=== PATIENT | female | born 1950 | race African-American/Black ===

== ENCOUNTER 2018-01-06 06:34 | Inpatient (IN) ==
[2018-01-06] MEDS ORDERED: ONDANSETRON 4 MG/2 ML VIAL IV STA (06:51)
[2018-01-06] MEDS ORDERED: HYDROmorphone 2 MG/1 ML VIAL IV STA ×2 (06:51→08:00)
[2018-01-06 08:03] LABS: Basophils % 0.3 % (0.0-0.8); Eosinophils # 0.1 10*3/uL (0.0-0.87); Eosinophils % 0.4 % (0.00-10.9); Hematocrit 41.7 VOL% (35.7-47.0); Hemoglobin 12.9 GM/DL (12.0-16.0); Immature Granulocytes % 0.3 %; Immature Granulocytes Absolute 0.03 #; Lymphocytes # 1.5 10*3/uL (1.4-4.0); Lymphocytes % 13.5 % (21.3-54.2); Mean Corpuscular HGB Conc 30.9 GM/DL (32-36); Mean Corpuscular Hemoglobin 30 PG (27-34); Mean Corpuscular Volume 97.9 FL (87-102); Mean Platelet Volume 10.6 FL (9.6-12.0); Monocytes # 1.1 10*3/uL (0.11-0.8); Monocytes % 9.4 % (1.7-12.7); Neutrophils # 8.5 10*3/uL (1.4-7.4); Neutrophils % 76.1 % (38.7-73.9); Platelet Count 163 T/CUMM (130-400); Red Blood Count 4.26 MC/CUMM (3.8-5.5); Red Cell Distribution Width 13.8 % (9.3-17.3); White Blood Count 11.2 T/CUMM (4-12)
[2018-01-06 08:12] LABS: INR 1.6; PT Patient Result 17.6 SECS; Partial Thromboplastin Time 27.3 SECS (0-40)
[2018-01-06 08:27] LABS: Calcium 8.8 MG/DL (8.5-10.1); Osmolality,Calculated 292.7 MOS/KG (273-304); Potassium 4.7 MMOL/L (3.5-5.1)
[2018-01-06] MEDS ORDERED: ONDANSETRON 4 MG/2 ML VIAL IV PRN (09:13)
[2018-01-06] MEDS: SODIUM CHLORIDE 0.45% 1,000 ML IV SCH (11:50)
[2018-01-06] MEDS ORDERED: POTASSIUM CHLORIDE 20 MEQ TABLET PO PRN (16:49)
[2018-01-06] MEDS: HYDROmorphone 2 MG/1 ML VIAL IV PRN (18:11)
[2018-01-06] MEDS: methylPREDNISolone SOD SUC 40 MG/1 ML VIAL IV SCH (18:15)
[2018-01-06] MEDS ORDERED: POTASSIUM CHLORIDE 20 MEQ TABLET PO SCH (21:00)
[2018-01-06] MEDS: DOCUSATE SODIUM 100 MG CAPSULE PO SCH ×2 (21:51→21:55)
[2018-01-06] MEDS: TRAVOPROST 0.004% OPH SOLN 2.5 ML BOTTLE BOTH EYES SCH (21:52)
[2018-01-06] MEDS: TEMAZEPAM 15 MG CAPSULE PO SCH (21:52)
[2018-01-07] MEDS: traMADol 50 MG TABLET PO PRN ×2 (01:46→20:59)
[2018-01-07 05:25] LABS: Basophils % 0.2 % (0.0-0.8); Hematocrit 35.8 VOL% (35.7-47.0); Hemoglobin 11.1 GM/DL (12.0-16.0); Immature Granulocytes % 0.6 %; Immature Granulocytes Absolute 0.04 #; Lymphocytes % 14.9 % (21.3-54.2); Mean Corpuscular Hemoglobin 30 PG (27-34); Mean Platelet Volume 10.7 FL (9.6-12.0); Monocytes # 0.2 10*3/uL (0.11-0.8); Monocytes % 3.8 % (1.7-12.7); Neutrophils # 5.1 10*3/uL (1.4-7.4); Neutrophils % 80.5 % (38.7-73.9); Platelet Count 136 T/CUMM (130-400); Red Blood Count 3.69 MC/CUMM (3.8-5.5); Red Cell Distribution Width 13.6 % (9.3-17.3); White Blood Count 6.4 T/CUMM (4-12)
[2018-01-07 05:48] LABS: INR 1.8; PT Patient Result 19.3 SECS
[2018-01-07 05:57] LABS: Albumin 2.7 G/DL (3.4-5.0); Bilirubin,Total 0.5 MG/DL (0.2-1.0); Calcium 8.3 MG/DL (8.5-10.1); Osmolality,Calculated 285.1 MOS/KG (273-304); Potassium 4.5 MMOL/L (3.5-5.1); Total Protein 6.8 G/DL (6.4-8.3)
[2018-01-07] MEDS: methylPREDNISolone SOD SUC 40 MG/1 ML VIAL IV SCH ×2 (06:43→18:48)
[2018-01-07] MEDS: POTASSIUM CHLORIDE 20 MEQ TABLET PO SCH (08:55)
[2018-01-07] MEDS: FUROSEMIDE 20 MG TABLET PO SCH (08:55)
[2018-01-07] MEDS: amLODIPine 5 MG TABLET PO SCH (08:55)
[2018-01-07] MEDS: DOCUSATE SODIUM 100 MG CAPSULE PO SCH ×2 (08:56→20:59)
[2018-01-07] MEDS: PANTOPRAZOLE 40 MG TABLET PO SCH (08:56)
[2018-01-07] MEDS: HYDROXYCHLOROQUINE 200 MG TABLET PO SCH (08:56)
[2018-01-07] MEDS: CARBOXYMETHYLCELLULOSE 1% OPH SOLN BOTH EYES SCH (08:57)
[2018-01-07] MEDS ORDERED: PHYTONADIONE 5 MG/5 ML ORAL.SYR PO ONE (09:38)
[2018-01-07] MEDS ORDERED: SODIUM CHLORIDE 0.9% 1,000 ML IV PRN (10:05)
[2018-01-07] MEDS: SODIUM CHLORIDE 0.45% 1,000 ML IV SCH ×2 (20:58→23:47)
[2018-01-07] MEDS: TEMAZEPAM 15 MG CAPSULE PO SCH (20:59)
[2018-01-07 23:41] LABS: INR 1.1
[2018-01-08] MEDS: TRAVOPROST 0.004% OPH SOLN 2.5 ML BOTTLE BOTH EYES SCH ×2 (00:09→22:11)
[2018-01-08 05:25] LABS: INR 1.1; PT Patient Result 11.4 SECS
[2018-01-08] MEDS ORDERED: FAMOTIDINE 20 MG TABLET PO ONE (06:00)
[2018-01-08] MEDS: methylPREDNISolone SOD SUC 40 MG/1 ML VIAL IV SCH ×2 (06:08→17:22)
[2018-01-08] MEDS ORDERED: ALBUTEROL 2.5 MG/3 ML NEB RESP TX ONE (07:45)
[2018-01-08] MEDS: DOCUSATE SODIUM 100 MG CAPSULE PO SCH ×2 (08:17→22:10)
[2018-01-08] MEDS: HYDROXYCHLOROQUINE 200 MG TABLET PO SCH (08:17)
[2018-01-08] MEDS: PANTOPRAZOLE 40 MG TABLET PO SCH (08:18)
[2018-01-08] MEDS: CARBOXYMETHYLCELLULOSE 1% OPH SOLN BOTH EYES SCH (08:18)
[2018-01-08] MEDS: POTASSIUM CHLORIDE 20 MEQ TABLET PO SCH (08:18)
[2018-01-08] MEDS: FUROSEMIDE 20 MG TABLET PO SCH (08:18)
[2018-01-08] MEDS ORDERED: ceFAZolin 1,000 MG VIAL ONE (08:40)
[2018-01-08] MEDS ORDERED: PROPOFOL 200 MG/20 ML VIAL IV ONE (10:18)
[2018-01-08] MEDS ORDERED: fentaNYL 100 MCG/2 ML VIAL ONE (10:19)
[2018-01-08] MEDS ORDERED: PHENYLEPHRINE 1 MG/10 ML SYRINGE IV ONE (10:19)
[2018-01-08] MEDS ORDERED: ePHEDrine 50 MG/ML AMP ONE (10:19)
[2018-01-08] MEDS ORDERED: MIDAZOLAM 2 MG/2 ML VIAL ONE (10:19)
[2018-01-08] MEDS ORDERED: SEVOFLURANE 1 UNIT/15 MINUTE INH ONE (10:19)
[2018-01-08] MEDS ORDERED: ROCURONIUM 100 MG/10 ML VIAL IV ONE (10:19)
[2018-01-08] MEDS ORDERED: ROPIVACAINE 0.5% 30 ML VIAL ONE (10:20)
[2018-01-08] MEDS: amLODIPine 5 MG TABLET PO SCH (12:19)
[2018-01-08] MEDS: HYDROmorphone 2 MG/1 ML VIAL IV PRN (14:33)
[2018-01-08] MEDS: SODIUM CHLORIDE 0.45% 1,000 ML IV SCH (15:46)
[2018-01-08] MEDS ORDERED: ceFAZolin 1,000 MG VIAL IM SCH (16:00)
[2018-01-08] MEDS ORDERED: ceFAZolin 1,000 MG VIAL IV SCH (16:14)
[2018-01-08] MEDS: ceFAZolin 1,000 MG in SYRINGE 1 EACH IV SCH (16:51)
[2018-01-08] MEDS: TEMAZEPAM 15 MG CAPSULE PO SCH (22:10)
[2018-01-09] MEDS: HYDROmorphone 2 MG/1 ML VIAL IV PRN (01:32)
[2018-01-09] MEDS: ceFAZolin 1,000 MG in SYRINGE 1 EACH IV SCH ×3 (01:50→16:54)
[2018-01-09] MEDS: SODIUM CHLORIDE 0.45% 1,000 ML IV SCH ×2 (03:30→18:53)
[2018-01-09] MEDS: methylPREDNISolone SOD SUC 40 MG/1 ML VIAL IV SCH ×2 (06:10→18:14)
[2018-01-09] MEDS: amLODIPine 5 MG TABLET PO SCH (08:31)
[2018-01-09] MEDS: FUROSEMIDE 20 MG TABLET PO SCH (08:31)
[2018-01-09] MEDS: POTASSIUM CHLORIDE 20 MEQ TABLET PO SCH (08:31)
[2018-01-09] MEDS: HYDROXYCHLOROQUINE 200 MG TABLET PO SCH (08:31)
[2018-01-09] MEDS: DOCUSATE SODIUM 100 MG CAPSULE PO SCH ×2 (08:31→21:06)
[2018-01-09] MEDS: PANTOPRAZOLE 40 MG TABLET PO SCH (08:31)
[2018-01-09] MEDS: CARBOXYMETHYLCELLULOSE 1% OPH SOLN BOTH EYES SCH (08:32)
[2018-01-09] MEDS ORDERED: WARFARIN 4 MG TABLET PO SCH (18:00)
[2018-01-09] MEDS: TRAVOPROST 0.004% OPH SOLN 2.5 ML BOTTLE BOTH EYES SCH (21:06)
[2018-01-09] MEDS: TEMAZEPAM 15 MG CAPSULE PO SCH (21:06)
[2018-01-10] MEDS: SODIUM CHLORIDE 0.45% 1,000 ML IV SCH (01:19)
[2018-01-10] MEDS: ceFAZolin 1,000 MG in SYRINGE 1 EACH IV SCH ×2 (01:35→08:48)
[2018-01-10] MEDS: methylPREDNISolone SOD SUC 40 MG/1 ML VIAL IV SCH (05:18)
[2018-01-10] MEDS: amLODIPine 5 MG TABLET PO SCH (08:37)
[2018-01-10] MEDS: DOCUSATE SODIUM 100 MG CAPSULE PO SCH (08:37)
[2018-01-10] MEDS: POTASSIUM CHLORIDE 20 MEQ TABLET PO SCH (08:37)
[2018-01-10] MEDS: HYDROXYCHLOROQUINE 200 MG TABLET PO SCH (08:37)
[2018-01-10] MEDS: FUROSEMIDE 20 MG TABLET PO SCH (08:38)
[2018-01-10] MEDS: PANTOPRAZOLE 40 MG TABLET PO SCH (10:14)
[2018-01-10] MEDS: CARBOXYMETHYLCELLULOSE 1% OPH SOLN BOTH EYES SCH (10:14)
[2018-01-10 12:01] VITALS: BP 135/85
[2018-01-13] MEDS ORDERED: WARFARIN 5 MG TABLET PO SCH (18:00)
== END 2018-01-10 16:40 | DRG 493 ==
LOC: EDBD → EDUNIT# → N.ED 06:34 → N.EDINP 09:13 → N.3E 09:57
PROVIDERS: ADMIT Family Medicine; ATTEND Family Medicine

== ENCOUNTER 2019-12-09 12:11 | Inpatient (IN) ==
[2019-12-09] MEDS ORDERED: ONDANSETRON 4 MG/2 ML VIAL IV STA (12:47)
[2019-12-09 12:57] LABS: Basophils # 0.1 10*3/uL (0.0-0.2); Basophils % 0.6 % (0.0-0.8); Eosinophils # 0.1 10*3/uL (0.0-0.87); Eosinophils % 1.3 % (0.00-10.9); Hematocrit 41.2 VOL% (35.7-47.0); Hemoglobin 13.3 GM/DL (12.0-16.0); Immature Granulocytes % 0.5 %; Immature Granulocytes Absolute 0.05 #; Lymphocytes # 1.6 10*3/uL (1.4-4.0); Lymphocytes % 15.1 % (21.3-54.2); Mean Corpuscular HGB Conc 32.3 GM/DL (32-36); Mean Corpuscular Volume 91.4 FL (87-102); Mean Platelet Volume 10.4 FL (9.6-12.0); Monocytes % 8.1 % (1.7-12.7); Neutrophils % 74.4 % (38.7-73.9); Platelet Count 213 T/CUMM (130-400); Red Blood Count 4.51 MC/CUMM (3.8-5.5); Red Cell Distribution Width 13.4 % (9.3-17.3); White Blood Count 10.3 T/CUMM (4-12)
[2019-12-09 13:19] LABS: Alanine Aminotransferase 19 U/L (13-56); Albumin 2.6 G/DL (3.4-5.0); Alkaline Phosphatase 81 U/L (45-117); Aspartate Amino Transferase 35 U/L (0-37); Bilirubin,Total < 0.39 MG/DL (0.2-1.0); Blood Urea Nitrogen 11 MG/DL (7-18); Calcium 9.2 MG/DL (8.5-10.1); Estimated Glom Filtration Rate 61 ML/MIN; Glucose 94 MG/DL (74-106); Osmolality,Calculated 277.4 MOS/KG (273-304); Total Protein 8.2 G/DL (6.4-8.3)
[2019-12-09 14:12] LABS: PT Patient Result 56.5 SECS (9.8-11.9)
[2019-12-09 14:16] LABS: INR 5.8
[2019-12-09 14:57] LABS: Bilirubin,Urine Negative (Negative); Blood, Urine Negative (Negative); Glucose,Urine (UA) Negative (Negative); Ketones,Urine 5 mg/dL (Negative); Mucus,Urine Occasional /LPF (Occasional); Nitrite,Urine Negative (Negative); Protein,Urine Negative; Squamous Epithelial Cell,Urine Occasional /HPF (0-10); Urine Appearance CLEAR (Clear); Urine Color Yellow (Yellow); Urine Specific Gravity 1.036 (1.001-1.035); Urine Urobilinogen < 2.0 EU/DL (0.2-1.0); WBC,Urine 2 /HPF (0-6)
[2019-12-09] MEDS ORDERED: LEVOFLOXACIN INJ 750 MG in PREMIX 1 EACH IV STA (15:30)
[2019-12-09] MEDS ORDERED: metroNIDAZOLE INJ 500 MG in PREMIX 1 EACH IV STA (15:31)
[2019-12-09] MEDS ORDERED: HYDROmorphone 2 MG/1 ML VIAL IV PRN ×2 (16:16→16:26)
[2019-12-09] MEDS ORDERED: PHYTONADIONE 10 MG/1 ML AMP SUBCUT STA (16:24)
[2019-12-09] MEDS: LACTATED RINGERS 1,000 ML IV SCH (17:25)
[2019-12-09] MEDS ORDERED: metroNIDAZOLE INJ 500 MG in PREMIX 1 EACH IV SCH (17:47)
[2019-12-09] MEDS ORDERED: LEVOFLOXACIN INJ 750 MG in PREMIX 1 EACH IV SCH (17:47)
[2019-12-09] MEDS: CIPROFLOXACIN INJ 400 MG in PREMIX 1 EACH IV SCH (18:00)
[2019-12-09] MEDS: metroNIDAZOLE INJ 500 MG in PREMIX 1 EACH IV SCH (20:18)
[2019-12-09] MEDS ORDERED: traZODone 50 MG TABLET PO ONE (23:16)
[2019-12-10] MEDS: metroNIDAZOLE INJ 500 MG in PREMIX 1 EACH IV SCH ×3 (03:21→20:27)
[2019-12-10] MEDS: LACTATED RINGERS 1,000 ML IV SCH ×2 (03:22→08:15)
[2019-12-10] MEDS: CIPROFLOXACIN INJ 400 MG in PREMIX 1 EACH IV SCH ×2 (05:12→17:54)
[2019-12-10 08:11] LABS: Basophils # 0.1 10*3/uL (0.0-0.2); Basophils % 0.8 % (0.0-0.8); Eosinophils # 0.4 10*3/uL (0.0-0.87); Eosinophils % 5.8 % (0.00-10.9); Hematocrit 36.9 VOL% (35.7-47.0); Hemoglobin 11.6 GM/DL (12.0-16.0); Immature Granulocytes % 0.4 %; Immature Granulocytes Absolute 0.03 #; Lymphocytes # 1.6 10*3/uL (1.4-4.0); Lymphocytes % 22.2 % (21.3-54.2); Mean Corpuscular HGB Conc 31.4 GM/DL (32-36); Mean Corpuscular Volume 93.7 FL (87-102); Mean Platelet Volume 10.8 FL (9.6-12.0); Neutrophils % 59.8 % (38.7-73.9); Platelet Count 201 T/CUMM (130-400); Red Blood Count 3.94 MC/CUMM (3.8-5.5); Red Cell Distribution Width 13.6 % (9.3-17.3); White Blood Count 7.4 T/CUMM (4-12)
[2019-12-10] MEDS: PANTOPRAZOLE 40 MG VIAL IV SCH (08:14)
[2019-12-10 08:27] LABS: Calcium 8.3 MG/DL (8.5-10.1); Osmolality,Calculated 279.1 MOS/KG (273-304)
[2019-12-10 08:30] LABS: INR 4.3; PT Patient Result 42.4 SECS (9.8-11.9)
[2019-12-10] MEDS ORDERED: PHYTONADIONE 5 MG/5 ML ORAL.SYR PO STA (08:55)
[2019-12-10 15:09] LABS: INR 2.9; PT Patient Result 29.9 SECS (9.8-11.9)
[2019-12-10] MEDS ORDERED: traMADol 50 MG TABLET PO PRN (15:26)
[2019-12-10] MEDS ORDERED: CARBOXYMETHYLCELLULOSE 1% OPH SOLN BOTH EYES PRN (15:26)
[2019-12-10] MEDS ORDERED: PHYTONADIONE 10 MG/1 ML AMP SUBCUT ONE (17:43)
[2019-12-10] MEDS: LATANOPROST 0.005% OPH SOLN 2.5 ML BOTTLE BOTH EYES SCH (20:27)
[2019-12-10] MEDS: SIMVASTATIN 20 MG TABLET PO SCH (20:27)
[2019-12-10] MEDS: TRAVOPROST 0.004% OPH SOLN 2.5 ML BOTTLE BOTH EYES SCH (20:29)
[2019-12-11] MEDS: ONDANSETRON 4 MG/2 ML VIAL IV PRN (01:54)
[2019-12-11] MEDS: metroNIDAZOLE INJ 500 MG in PREMIX 1 EACH IV SCH ×3 (03:34→20:42)
[2019-12-11 05:18] LABS: Basophils # 0.1 10*3/uL (0.0-0.2); Basophils % 0.8 % (0.0-0.8); Eosinophils # 0.4 10*3/uL (0.0-0.87); Eosinophils % 7.1 % (0.00-10.9); Immature Granulocytes % 0.8 %; Immature Granulocytes Absolute 0.05 #; Lymphocytes # 1.6 10*3/uL (1.4-4.0); Lymphocytes % 25.7 % (21.3-54.2); Mean Corpuscular HGB Conc 31.6 GM/DL (32-36); Mean Corpuscular Volume 92.9 FL (87-102); Mean Platelet Volume 10.6 FL (9.6-12.0); Neutrophils % 52.6 % (38.7-73.9); Platelet Count 210 T/CUMM (130-400); Red Blood Count 4.09 MC/CUMM (3.8-5.5); Red Cell Distribution Width 13.4 % (9.3-17.3); White Blood Count 6.1 T/CUMM (4-12)
[2019-12-11 05:28] LABS: INR 1.6; PT Patient Result 16.4 SECS (9.8-11.9)
[2019-12-11] MEDS: CIPROFLOXACIN INJ 400 MG in PREMIX 1 EACH IV SCH ×2 (05:34→17:15)
[2019-12-11 05:42] LABS: Calcium 8.4 MG/DL (8.5-10.1); Osmolality,Calculated 271.7 MOS/KG (273-304)
[2019-12-11] MEDS ORDERED: PHYTONADIONE 5 MG/5 ML ORAL.SYR PO STA (06:49)
[2019-12-11] MEDS: PANTOPRAZOLE 40 MG VIAL IV SCH (08:20)
[2019-12-11] MEDS: LACTATED RINGERS 1,000 ML IV SCH ×4 (09:04→17:15)
[2019-12-11 11:24] LABS: INR 1.4; PT Patient Result 15.1 SECS (9.8-11.9)
[2019-12-11] MEDS ORDERED: ACETAMINOPHEN 325 MG TABLET PO PRN (12:47)
[2019-12-11] MEDS: SIMVASTATIN 20 MG TABLET PO SCH (20:41)
[2019-12-11] MEDS: TRAVOPROST 0.004% OPH SOLN 2.5 ML BOTTLE BOTH EYES SCH (20:42)
[2019-12-11] MEDS: LATANOPROST 0.005% OPH SOLN 2.5 ML BOTTLE BOTH EYES SCH (20:42)
[2019-12-12] MEDS: metroNIDAZOLE INJ 500 MG in PREMIX 1 EACH IV SCH ×3 (03:17→21:30)
[2019-12-12] MEDS: CIPROFLOXACIN INJ 400 MG in PREMIX 1 EACH IV SCH ×2 (05:22→18:04)
[2019-12-12 06:01] LABS: Basophils # 0.1 10*3/uL (0.0-0.2); Basophils % 0.9 % (0.0-0.8); Eosinophils # 0.3 10*3/uL (0.0-0.87); Eosinophils % 6.4 % (0.00-10.9); Hematocrit 37.9 VOL% (35.7-47.0); Hemoglobin 12.2 GM/DL (12.0-16.0); Immature Granulocytes % 0.9 %; Immature Granulocytes Absolute 0.05 #; Lymphocytes # 1.7 10*3/uL (1.4-4.0); Lymphocytes % 32.1 % (21.3-54.2); Mean Corpuscular HGB Conc 32.2 GM/DL (32-36); Mean Corpuscular Volume 91.5 FL (87-102); Mean Platelet Volume 9.9 FL (9.6-12.0); Monocytes % 12.5 % (1.7-12.7); Neutrophils % 47.2 % (38.7-73.9); Platelet Count 210 T/CUMM (130-400); Red Blood Count 4.14 MC/CUMM (3.8-5.5); Red Cell Distribution Width 13.3 % (9.3-17.3); White Blood Count 5.3 T/CUMM (4-12)
[2019-12-12 06:20] LABS: Calcium 8.4 MG/DL (8.5-10.1); Osmolality,Calculated 277.3 MOS/KG (273-304)
[2019-12-12] MEDS: LACTATED RINGERS 1,000 ML IV SCH ×2 (08:20→15:04)
[2019-12-12] MEDS: PANTOPRAZOLE 40 MG VIAL IV SCH (09:11)
[2019-12-12] MEDS: ONDANSETRON 4 MG/2 ML VIAL IV PRN (18:04)
[2019-12-12] MEDS: SIMVASTATIN 20 MG TABLET PO SCH (21:30)
[2019-12-12] MEDS: LATANOPROST 0.005% OPH SOLN 2.5 ML BOTTLE BOTH EYES SCH (21:30)
[2019-12-12] MEDS: TRAVOPROST 0.004% OPH SOLN 2.5 ML BOTTLE BOTH EYES SCH (21:30)
[2019-12-13] MEDS: metroNIDAZOLE INJ 500 MG in PREMIX 1 EACH IV SCH ×3 (05:38→20:55)
[2019-12-13] MEDS: LACTATED RINGERS 1,000 ML IV SCH ×4 (05:40→23:46)
[2019-12-13 05:45] LABS: Basophils # 0.1 10*3/uL (0.0-0.2); Eosinophils # 0.4 10*3/uL (0.0-0.87); Eosinophils % 6.8 % (0.00-10.9); Hematocrit 41.4 VOL% (35.7-47.0); Hemoglobin 13.2 GM/DL (12.0-16.0); Immature Granulocytes % 0.7 %; Immature Granulocytes Absolute 0.04 #; Lymphocytes # 1.6 10*3/uL (1.4-4.0); Lymphocytes % 27.4 % (21.3-54.2); Mean Corpuscular HGB Conc 31.9 GM/DL (32-36); Mean Platelet Volume 10.5 FL (9.6-12.0); Monocytes % 10.8 % (1.7-12.7); Neutrophils % 53.3 % (38.7-73.9); Platelet Count 221 T/CUMM (130-400); Red Blood Count 4.55 MC/CUMM (3.8-5.5); Red Cell Distribution Width 13.3 % (9.3-17.3); White Blood Count 5.7 T/CUMM (4-12)
[2019-12-13 06:05] LABS: Albumin 2.3 G/DL (3.4-5.0); Bilirubin,Total 0.6 MG/DL (0.2-1.0); Calcium 8.6 MG/DL (8.5-10.1); Osmolality,Calculated 273.4 MOS/KG (273-304); Total Protein 7.3 G/DL (6.4-8.3)
[2019-12-13] MEDS: CIPROFLOXACIN INJ 400 MG in PREMIX 1 EACH IV SCH ×2 (07:44→18:10)
[2019-12-13] MEDS: CHOLECALCIFEROL 1,000 UNIT TABLET PO SCH (09:35)
[2019-12-13] MEDS: PANTOPRAZOLE 40 MG VIAL IV SCH (09:39)
[2019-12-13] MEDS ORDERED: POTASSIUM CHLORIDE 20 MEQ TABLET PO ONE (14:00)
[2019-12-13] MEDS ORDERED: MAGNESIUM SULF RIDER 2 GM in PREMIX 1 EACH IV ONE ×2 (14:00→22:52)
[2019-12-13] MEDS: SIMVASTATIN 20 MG TABLET PO SCH (20:55)
[2019-12-13] MEDS: LATANOPROST 0.005% OPH SOLN 2.5 ML BOTTLE BOTH EYES SCH (20:58)
[2019-12-13] MEDS: TRAVOPROST 0.004% OPH SOLN 2.5 ML BOTTLE BOTH EYES SCH (20:58)
[2019-12-14] MEDS: metroNIDAZOLE INJ 500 MG in PREMIX 1 EACH IV SCH (03:41)
[2019-12-14] MEDS: CIPROFLOXACIN INJ 400 MG in PREMIX 1 EACH IV SCH (05:40)
[2019-12-14 05:47] LABS: Eosinophils # 0.3 10*3/uL (0.0-0.87); Eosinophils % 7.6 % (0.00-10.9); Hematocrit 36.2 VOL% (35.7-47.0); Hemoglobin 11.5 GM/DL (12.0-16.0); Immature Granulocytes % 0.2 %; Immature Granulocytes Absolute 0.01 #; Lymphocytes # 1.3 10*3/uL (1.4-4.0); Lymphocytes % 31.3 % (21.3-54.2); Mean Corpuscular HGB Conc 31.8 GM/DL (32-36); Mean Corpuscular Volume 90.5 FL (87-102); Mean Platelet Volume 10.6 FL (9.6-12.0); Monocytes % 18.5 % (1.7-12.7); Neutrophils % 41.4 % (38.7-73.9); Platelet Count 193 T/CUMM (130-400); Red Cell Distribution Width 13.7 % (9.3-17.3); White Blood Count 4.1 T/CUMM (4-12)
[2019-12-14 06:10] LABS: Bilirubin,Total 0.4 MG/DL (0.2-1.0); Calcium 8.3 MG/DL (8.5-10.1); Osmolality,Calculated 276.3 MOS/KG (273-304); Total Protein 6.3 G/DL (6.4-8.3)
[2019-12-14 06:15] LABS: Eosinophils 6 % (0-10); Hypochromasia 1+; Lymphocytes 23 % (20-55); Microcytosis 1+; Platelet Estimate Adequate; Segmented Neutrophils 52 % (50-85); Total Cells Counted 100
[2019-12-14] MEDS: CHOLECALCIFEROL 1,000 UNIT TABLET PO SCH (08:29)
[2019-12-14] MEDS: PANTOPRAZOLE 40 MG VIAL IV SCH (08:30)
[2019-12-14] MEDS ORDERED: POTASSIUM CHLORIDE 20 MEQ TABLET PO SCH (09:00)
[2019-12-14] MEDS: LACTATED RINGERS 1,000 ML IV SCH (09:54)
[2019-12-14] MEDS ORDERED: ERTAPENEM 1,000 MG in SODIUM CHLORIDE 0.9% 100 ML IV SCH (10:00)
[2019-12-14] MEDS: ONDANSETRON 4 MG/2 ML VIAL IV PRN (11:24)
[2019-12-14] MEDS ORDERED: NYSTATIN CREAM 15 GM TUBE TOP SCH (14:00)
[2019-12-14] MEDS ORDERED: WARFARIN 5 MG TABLET PO SCH (15:00)
[2019-12-14 15:47] VITALS: BP 123/93
== END 2019-12-14 18:19 | DRG 392 ==
LOC: N.ED 12:11 → N.EDINP 16:16 → N.3E 17:00
PROVIDERS: ADMIT Internal Medicine; ATTEND Internal Medicine

== ENCOUNTER 2020-01-07 12:20 | Inpatient (IN) ==
[2020-01-07] MEDS ORDERED: ONDANSETRON 4 MG/2 ML VIAL IV STA (12:46)
[2020-01-07] MEDS ORDERED: SODIUM CHLORIDE 0.9% 1,000 ML IV STA (12:46)
[2020-01-07 13:03] LABS: Bilirubin,Urine Negative (Negative); Blood, Urine Negative (Negative); Glucose,Urine (UA) Negative (Negative); Hyaline Casts,Urine 1 /LPF (0-3); Ketones,Urine 20 mg/dL (Negative); Mucus,Urine Occasional /LPF (Occasional); Nitrite,Urine Negative (Negative); Protein,Urine Negative; RBC,Urine <1 /HPF (0-4); Urine Appearance CLEAR (Clear); Urine Color Yellow (Yellow); Urine Specific Gravity 1.017 (1.001-1.035); WBC,Urine 2 /HPF (0-6)
[2020-01-07 13:08] LABS: Basophils # 0.1 10*3/uL (0.0-0.2); Basophils % 0.7 % (0.0-0.8); Eosinophils # 0.2 10*3/uL (0.0-0.87); Eosinophils % 2.8 % (0.00-10.9); Hematocrit 42.4 VOL% (35.7-47.0); Hemoglobin 13.4 GM/DL (12.0-16.0); Immature Granulocytes % 0.5 %; Immature Granulocytes Absolute 0.04 #; Lymphocytes # 1.8 10*3/uL (1.4-4.0); Mean Corpuscular HGB Conc 31.6 GM/DL (32-36); Mean Corpuscular Volume 93.6 FL (87-102); Monocytes % 9.2 % (1.7-12.7); Neutrophils % 63.8 % (38.7-73.9); Platelet Count 209 T/CUMM (130-400); Red Blood Count 4.53 MC/CUMM (3.8-5.5); Red Cell Distribution Width 14.5 % (9.3-17.3); White Blood Count 7.6 T/CUMM (4-12)
[2020-01-07 13:28] LABS: Albumin 2.7 G/DL (3.4-5.0); Bilirubin,Total 0.8 MG/DL (0.2-1.0); Osmolality,Calculated 278.3 MOS/KG (273-304)
[2020-01-07] MEDS ORDERED: ALBUTEROL/IPRATROPIUM 3 ML NEB RESP TX PRN (15:29)
[2020-01-07] MEDS ORDERED: CARBOXYMETHYLCELLULOSE 1% OPH SOLN BOTH EYES PRN (15:34)
[2020-01-07] MEDS ORDERED: traMADol 50 MG TABLET PO PRN (15:34)
[2020-01-07] MEDS ORDERED: POTASSIUM CHLORIDE 20 MEQ TABLET PO STA (15:36)
[2020-01-07] MEDS: metroNIDAZOLE INJ 500 MG in PREMIX 1 EACH IV SCH (16:28)
[2020-01-07] MEDS: LACTATED RINGERS 1,000 ML IV SCH (16:28)
[2020-01-07] MEDS ORDERED: CIPROFLOXACIN INJ 400 MG in PREMIX 1 EACH IV SCH (17:00)
[2020-01-07] MEDS: KETOROLAC 15 MG/1 ML VIAL IV PRN (18:29)
[2020-01-07] MEDS: TEMAZEPAM 15 MG CAPSULE PO SCH (20:49)
[2020-01-07] MEDS: SIMVASTATIN 20 MG TABLET PO SCH (20:50)
[2020-01-07] MEDS: CIPROFLOXACIN INJ 400 MG in PREMIX 1 EACH IV SCH (20:50)
[2020-01-08] MEDS: metroNIDAZOLE INJ 500 MG in PREMIX 1 EACH IV SCH ×3 (00:53→15:11)
[2020-01-08] MEDS: LACTATED RINGERS 1,000 ML IV SCH ×3 (05:27→16:10)
[2020-01-08 06:15] LABS: Eosinophils # 0.4 10*3/uL (0.0-0.87); Eosinophils % 8.6 % (0.00-10.9); Hematocrit 38.3 VOL% (35.7-47.0); Hemoglobin 11.8 GM/DL (12.0-16.0); Immature Granulocytes % 0.7 %; Immature Granulocytes Absolute 0.03 #; Lymphocytes # 1.2 10*3/uL (1.4-4.0); Lymphocytes % 29.4 % (21.3-54.2); Mean Corpuscular HGB Conc 30.8 GM/DL (32-36); Mean Platelet Volume 10.9 FL (9.6-12.0); Monocytes % 14.5 % (1.7-12.7); Neutrophils % 45.8 % (38.7-73.9); Platelet Count 170 T/CUMM (130-400); Red Blood Count 4.03 MC/CUMM (3.8-5.5); Red Cell Distribution Width 14.3 % (9.3-17.3); White Blood Count 4.1 T/CUMM (4-12)
[2020-01-08 06:20] LABS: INR 2.5; PT Patient Result 25.9 SECS (9.8-11.9)
[2020-01-08 06:29] LABS: Calcium 8.6 MG/DL (8.5-10.1); Osmolality,Calculated 279.1 MOS/KG (273-304)
[2020-01-08] MEDS: LATANOPROST 0.005% OPH SOLN 2.5 ML BOTTLE BOTH EYES SCH (10:20)
[2020-01-08] MEDS: KETOROLAC 15 MG/1 ML VIAL IV PRN ×2 (10:48→21:03)
[2020-01-08] MEDS: PANTOPRAZOLE 40 MG VIAL IV SCH (11:34)
[2020-01-08] MEDS: amLODIPine 5 MG TABLET PO SCH (11:34)
[2020-01-08] MEDS: CIPROFLOXACIN INJ 400 MG in PREMIX 1 EACH IV SCH ×2 (11:44→21:06)
[2020-01-08] MEDS ORDERED: PHYTONADIONE INJ 10 MG in SODIUM CHLORIDE 0.9% 50 ML IV ONE (14:00)
[2020-01-08] MEDS: TEMAZEPAM 15 MG CAPSULE PO SCH ×2 (21:04→21:22)
[2020-01-08] MEDS: CARBOXYMETHYLCELLULOSE 1% OPH SOLN BOTH EYES SCH (21:04)
[2020-01-08] MEDS: SIMVASTATIN 20 MG TABLET PO SCH (21:21)
[2020-01-09] MEDS: metroNIDAZOLE INJ 500 MG in PREMIX 1 EACH IV SCH ×4 (00:04→23:42)
[2020-01-09] MEDS: LACTATED RINGERS 1,000 ML IV SCH ×2 (00:10→14:09)
[2020-01-09 05:00] LABS: INR 1.4; PT Patient Result 15.2 SECS (9.8-11.9)
[2020-01-09] MEDS ORDERED: CLINDAMYCIN INJ 900 MG in PREMIX 1 EACH IV ONE (06:00)
[2020-01-09] MEDS ORDERED: MIDAZOLAM 2 MG/2 ML VIAL ONE (07:01)
[2020-01-09] MEDS ORDERED: ROCURONIUM 50 MG/5 ML VIAL IV ONE (07:01)
[2020-01-09] MEDS ORDERED: fentaNYL 100 MCG/2 ML VIAL ONE ×2 (07:01→11:18)
[2020-01-09] MEDS ORDERED: LIDOCAINE 2% 5 ML VIAL ONE (07:01)
[2020-01-09] MEDS ORDERED: propofoL 200 MG/20 ML VIAL IV ONE (07:01)
[2020-01-09] MEDS ORDERED: ePHEDrine 50 MG/ML VIAL ONE (07:29)
[2020-01-09] MEDS ORDERED: methylPREDNISolone SOD SUC 125 MG/2 ML VIAL ONE (07:36)
[2020-01-09] MEDS ORDERED: PHENYLEPHRINE 1 MG/10 ML SYRINGE IV ONE ×3 (07:46→10:49)
[2020-01-09] MEDS ORDERED: ONDANSETRON 4 MG/2 ML VIAL ONE (08:01)
[2020-01-09] MEDS ORDERED: GLYCOPYRROLATE 0.4 MG/2 ML VIAL ONE (10:49)
[2020-01-09] MEDS ORDERED: NEOSTIGMINE 10 MG/10 ML VIAL ONE (10:49)
[2020-01-09] MEDS ORDERED: NALOXONE 0.4 MG/ML VIAL IV PRN (11:35)
[2020-01-09] MEDS ORDERED: SEVOFLURANE 1 UNIT/15 MINUTE INH ONE (12:26)
[2020-01-09] MEDS ORDERED: ONDANSETRON 4 MG/2 ML VIAL IV PRN (12:35)
[2020-01-09] MEDS ORDERED: HYDROmorphone 2 MG/1 ML VIAL IV PRN (12:35)
[2020-01-09] MEDS: CIPROFLOXACIN INJ 400 MG in PREMIX 1 EACH IV SCH ×2 (14:18→20:43)
[2020-01-09] MEDS: CARBOXYMETHYLCELLULOSE 1% OPH SOLN BOTH EYES SCH ×2 (14:23→20:44)
[2020-01-09] MEDS: amLODIPine 5 MG TABLET PO SCH (14:23)
[2020-01-09] MEDS: PANTOPRAZOLE 40 MG VIAL IV SCH (14:24)
[2020-01-09] MEDS: HYDROmorphone PCA 30 MG/30 ML SYRINGE IV SCH (14:33)
[2020-01-09] MEDS: LATANOPROST 0.005% OPH SOLN 2.5 ML BOTTLE BOTH EYES SCH (14:36)
[2020-01-09 15:02] LABS: Basophils % 0.1 % (0.0-0.8); Immature Granulocytes % 0.6 %; Immature Granulocytes Absolute 0.07 #; Lymphocytes # 0.3 10*3/uL (1.4-4.0); Lymphocytes % 2.7 % (21.3-54.2); Mean Corpuscular HGB Conc 31.6 GM/DL (32-36); Mean Corpuscular Volume 93.1 FL (87-102); Mean Platelet Volume 9.8 FL (9.6-12.0); Monocytes % 5.1 % (1.7-12.7); Neutrophils % 91.5 % (38.7-73.9); Platelet Count 183 T/CUMM (130-400); Red Blood Count 4.08 MC/CUMM (3.8-5.5); Red Cell Distribution Width 13.8 % (9.3-17.3); White Blood Count 11.7 T/CUMM (4-12)
[2020-01-09 15:58] LABS: Eosinophils 1 % (0-10); Segmented Neutrophils 94 % (50-85); Total Cells Counted 100
[2020-01-09 15:59] LABS: Platelet Estimate Adequate
[2020-01-09] MEDS: TEMAZEPAM 15 MG CAPSULE PO SCH (21:57)
[2020-01-09] MEDS: SIMVASTATIN 20 MG TABLET PO SCH (21:57)
[2020-01-10 05:17] LABS: Basophils % 0.1 % (0.0-0.8); Hematocrit 34.2 VOL% (35.7-47.0); Hemoglobin 10.5 GM/DL (12.0-16.0); Immature Granulocytes % 0.7 %; Lymphocytes % 6.8 % (21.3-54.2); Mean Corpuscular HGB Conc 30.7 GM/DL (32-36); Mean Corpuscular Volume 95.5 FL (87-102); Mean Platelet Volume 11.1 FL (9.6-12.0); Monocytes % 10.8 % (1.7-12.7); Neutrophils % 81.6 % (38.7-73.9); Platelet Count 199 T/CUMM (130-400); Red Blood Count 3.58 MC/CUMM (3.8-5.5); Red Cell Distribution Width 14.1 % (9.3-17.3); White Blood Count 14.4 T/CUMM (4-12)
[2020-01-10 05:26] LABS: INR 1.3; PT Patient Result 13.4 SECS (9.8-11.9)
[2020-01-10 05:38] LABS: Albumin 2.1 G/DL (3.4-5.0); Bilirubin,Total 0.6 MG/DL (0.2-1.0); Calcium 7.9 MG/DL (8.5-10.1); Osmolality,Calculated 273.7 MOS/KG (273-304); Total Protein 6.2 G/DL (6.4-8.3)
[2020-01-10] MEDS: LACTATED RINGERS 1,000 ML IV SCH ×3 (07:37→20:38)
[2020-01-10] MEDS: amLODIPine 5 MG TABLET PO SCH (08:37)
[2020-01-10] MEDS: metroNIDAZOLE INJ 500 MG in PREMIX 1 EACH IV SCH ×2 (09:23→15:46)
[2020-01-10] MEDS: PANTOPRAZOLE 40 MG VIAL IV SCH (09:25)
[2020-01-10] MEDS: LATANOPROST 0.005% OPH SOLN 2.5 ML BOTTLE BOTH EYES SCH (09:25)
[2020-01-10] MEDS: CARBOXYMETHYLCELLULOSE 1% OPH SOLN BOTH EYES SCH ×2 (09:25→20:45)
[2020-01-10] MEDS: CIPROFLOXACIN INJ 400 MG in PREMIX 1 EACH IV SCH ×2 (11:41→20:39)
[2020-01-10] MEDS ORDERED: ENOXAPARIN 40 MG/0.4 ML SYRINGE SUBCUT SCH (14:00)
[2020-01-10] MEDS: SIMVASTATIN 20 MG TABLET PO SCH (20:39)
[2020-01-10] MEDS: TEMAZEPAM 15 MG CAPSULE PO SCH (20:39)
[2020-01-11] MEDS: metroNIDAZOLE INJ 500 MG in PREMIX 1 EACH IV SCH ×4 (00:52→23:48)
[2020-01-11 06:24] LABS: Basophils # 0.1 10*3/uL (0.0-0.2); Basophils % 0.4 % (0.0-0.8); Eosinophils # 0.3 10*3/uL (0.0-0.87); Eosinophils % 2.9 % (0.00-10.9); Hematocrit 31.8 VOL% (35.7-47.0); Hemoglobin 9.7 GM/DL (12.0-16.0); Immature Granulocytes % 0.4 %; Immature Granulocytes Absolute 0.05 #; Lymphocytes # 1.4 10*3/uL (1.4-4.0); Lymphocytes % 12.7 % (21.3-54.2); Mean Corpuscular HGB Conc 30.5 GM/DL (32-36); Mean Corpuscular Volume 96.7 FL (87-102); Mean Platelet Volume 10.9 FL (9.6-12.0); Monocytes % 15.7 % (1.7-12.7); Neutrophils % 67.9 % (38.7-73.9); Platelet Count 189 T/CUMM (130-400); Red Blood Count 3.29 MC/CUMM (3.8-5.5); Red Cell Distribution Width 14.3 % (9.3-17.3); White Blood Count 11.2 T/CUMM (4-12)
[2020-01-11 06:32] LABS: INR 1.2; PT Patient Result 12.7 SECS (9.8-11.9)
[2020-01-11 06:42] LABS: Alanine Aminotransferase 15 U/L (13-56); Albumin 2.1 G/DL (3.4-5.0); Alkaline Phosphatase 52 U/L (45-117); Aspartate Amino Transferase 35 U/L (0-37); Bilirubin,Indirect 0.3 MG/DL (0.0-1.0); Bilirubin,Total < 0.39 MG/DL (0.2-1.0); Total Protein 6.1 G/DL (6.4-8.3)
[2020-01-11 06:46] LABS: Calcium 7.9 MG/DL (8.5-10.1); Osmolality,Calculated 275.7 MOS/KG (273-304)
[2020-01-11 07:12] LABS: Band Neutrophils 5 % (0-10); Eosinophils 3 % (0-10); Lymphocytes 12 % (20-55); Nucleated Red Blood Cells 1 (0-5); Platelet Estimate Normal; Segmented Neutrophils 60 % (50-85); Total Cells Counted 100
[2020-01-11 07:13] LABS: Anisocytosis 1+; Atypical Lymphocytes Few; Macrocytosis Slight
[2020-01-11] MEDS: amLODIPine 5 MG TABLET PO SCH (08:13)
[2020-01-11] MEDS: PANTOPRAZOLE 40 MG VIAL IV SCH (08:32)
[2020-01-11] MEDS: LACTATED RINGERS 1,000 ML IV SCH ×2 (08:33→08:49)
[2020-01-11] MEDS: HYDROmorphone PCA 30 MG/30 ML SYRINGE IV SCH ×2 (08:49→11:58)
[2020-01-11] MEDS ORDERED: SODIUM CHLORIDE 0.9% 500 ML IV ONE (09:00)
[2020-01-11] MEDS: LATANOPROST 0.005% OPH SOLN 2.5 ML BOTTLE BOTH EYES SCH (09:59)
[2020-01-11] MEDS: CARBOXYMETHYLCELLULOSE 1% OPH SOLN BOTH EYES SCH ×2 (09:59→20:41)
[2020-01-11] MEDS: CIPROFLOXACIN INJ 400 MG in PREMIX 1 EACH IV SCH (10:23)
[2020-01-11] MEDS ORDERED: ALBUMIN 25% 50 GM in PREMIX 1 EACH IV ONE (11:00)
[2020-01-11] MEDS ORDERED: LACTATED RINGERS 500 ML IV ONE (12:16)
[2020-01-11 12:51] LABS: Basophils # 0.1 10*3/uL (0.0-0.2); Basophils % 0.4 % (0.0-0.8); Eosinophils # 0.3 10*3/uL (0.0-0.87); Eosinophils % 2.8 % (0.00-10.9); Hematocrit 30.3 VOL% (35.7-47.0); Hemoglobin 9.1 GM/DL (12.0-16.0); Immature Granulocytes % 0.5 %; Immature Granulocytes Absolute 0.06 #; Lymphocytes # 1.2 10*3/uL (1.4-4.0); Lymphocytes % 10.4 % (21.3-54.2); Mean Corpuscular Volume 98.1 FL (87-102); Mean Platelet Volume 10.1 FL (9.6-12.0); Monocytes % 14.5 % (1.7-12.7); Neutrophils % 71.4 % (38.7-73.9); Platelet Count 186 T/CUMM (130-400); Red Blood Count 3.09 MC/CUMM (3.8-5.5); Red Cell Distribution Width 14.6 % (9.3-17.3)
[2020-01-11] MEDS: SODIUM CHLORIDE 0.9% 1,000 ML IV SCH (16:07)
[2020-01-11] MEDS: TEMAZEPAM 15 MG CAPSULE PO SCH (20:41)
[2020-01-12] MEDS: SODIUM CHLORIDE 0.9% 1,000 ML IV SCH ×4 (01:29→22:59)
[2020-01-12] MEDS ORDERED: MAGNESIUM SULF RIDER 2 GM in PREMIX 1 EACH IV ONE (06:00)
[2020-01-12 06:04] LABS: Basophils % 0.2 % (0.0-0.8); Eosinophils # 0.1 10*3/uL (0.0-0.87); Hematocrit 28.1 VOL% (35.7-47.0); Hemoglobin 8.6 GM/DL (12.0-16.0); Immature Granulocytes % 0.6 %; Immature Granulocytes Absolute 0.08 #; Lymphocytes # 1.1 10*3/uL (1.4-4.0); Mean Corpuscular HGB Conc 30.6 GM/DL (32-36); Mean Corpuscular Volume 95.9 FL (87-102); Mean Platelet Volume 10.7 FL (9.6-12.0); Neutrophils % 77.2 % (38.7-73.9); Platelet Count 186 T/CUMM (130-400); Red Blood Count 2.93 MC/CUMM (3.8-5.5); Red Cell Distribution Width 14.6 % (9.3-17.3); White Blood Count 12.5 T/CUMM (4-12)
[2020-01-12 06:25] LABS: INR 1.2; PT Patient Result 12.5 SECS (9.8-11.9)
[2020-01-12 06:29] LABS: Calcium 7.6 MG/DL (8.5-10.1); Osmolality,Calculated 275.8 MOS/KG (273-304)
[2020-01-12] MEDS: metroNIDAZOLE INJ 500 MG in PREMIX 1 EACH IV SCH ×2 (08:18→15:49)
[2020-01-12] MEDS: PANTOPRAZOLE 40 MG VIAL IV SCH (08:19)
[2020-01-12] MEDS ORDERED: SODIUM CHLORIDE 0.9% 1,000 ML IV ONE (09:00)
[2020-01-12] MEDS: CARBOXYMETHYLCELLULOSE 1% OPH SOLN BOTH EYES SCH ×2 (10:27→20:33)
[2020-01-12] MEDS: CIPROFLOXACIN INJ 400 MG in PREMIX 1 EACH IV SCH (10:27)
[2020-01-12] MEDS: LATANOPROST 0.005% OPH SOLN 2.5 ML BOTTLE BOTH EYES SCH (10:28)
[2020-01-12] MEDS: HYDROmorphone PCA 30 MG/30 ML SYRINGE IV SCH (11:32)
[2020-01-12] MEDS: TEMAZEPAM 15 MG CAPSULE PO SCH (20:33)
[2020-01-13] MEDS: metroNIDAZOLE INJ 500 MG in PREMIX 1 EACH IV SCH ×3 (00:23→15:03)
[2020-01-13] MEDS: SODIUM CHLORIDE 0.9% 1,000 ML IV SCH ×3 (04:51→22:55)
[2020-01-13 05:53] LABS: Basophils % 0.3 % (0.0-0.8); Eosinophils # 0.2 10*3/uL (0.0-0.87); Eosinophils % 1.9 % (0.00-10.9); Hematocrit 27.8 VOL% (35.7-47.0); Hemoglobin 8.6 GM/DL (12.0-16.0); Immature Granulocytes % 0.5 %; Immature Granulocytes Absolute 0.05 #; Lymphocytes # 0.8 10*3/uL (1.4-4.0); Lymphocytes % 7.9 % (21.3-54.2); Mean Corpuscular HGB Conc 30.9 GM/DL (32-36); Mean Corpuscular Volume 95.2 FL (87-102); Mean Platelet Volume 10.5 FL (9.6-12.0); Monocytes % 12.5 % (1.7-12.7); Neutrophils % 76.9 % (38.7-73.9); Platelet Count 185 T/CUMM (130-400); Red Blood Count 2.92 MC/CUMM (3.8-5.5); Red Cell Distribution Width 14.8 % (9.3-17.3); White Blood Count 9.6 T/CUMM (4-12)
[2020-01-13 06:08] LABS: Calcium 7.9 MG/DL (8.5-10.1); Osmolality,Calculated 278.8 MOS/KG (273-304)
[2020-01-13] MEDS: LATANOPROST 0.005% OPH SOLN 2.5 ML BOTTLE BOTH EYES SCH (08:22)
[2020-01-13] MEDS: PANTOPRAZOLE 40 MG VIAL IV SCH (08:22)
[2020-01-13] MEDS: CARBOXYMETHYLCELLULOSE 1% OPH SOLN BOTH EYES SCH ×2 (08:22→20:47)
[2020-01-13] MEDS: CIPROFLOXACIN INJ 400 MG in PREMIX 1 EACH IV SCH (10:25)
[2020-01-13] MEDS: HYDROmorphone PCA 30 MG/30 ML SYRINGE IV SCH (11:40)
[2020-01-13] MEDS: TEMAZEPAM 15 MG CAPSULE PO SCH (20:47)
[2020-01-14] MEDS: metroNIDAZOLE INJ 500 MG in PREMIX 1 EACH IV SCH ×4 (00:49→23:34)
[2020-01-14 06:00] LABS: Basophils % 0.5 % (0.0-0.8); Eosinophils # 0.2 10*3/uL (0.0-0.87); Eosinophils % 2.3 % (0.00-10.9); Hematocrit 28.7 VOL% (35.7-47.0); Hemoglobin 8.8 GM/DL (12.0-16.0); Immature Granulocytes % 0.6 %; Immature Granulocytes Absolute 0.05 #; Lymphocytes # 0.8 10*3/uL (1.4-4.0); Lymphocytes % 9.1 % (21.3-54.2); Mean Corpuscular HGB Conc 30.7 GM/DL (32-36); Mean Corpuscular Volume 94.4 FL (87-102); Mean Platelet Volume 10.6 FL (9.6-12.0); Neutrophils % 74.5 % (38.7-73.9); Platelet Count 213 T/CUMM (130-400); Red Blood Count 3.04 MC/CUMM (3.8-5.5); Red Cell Distribution Width 15.1 % (9.3-17.3); White Blood Count 8.4 T/CUMM (4-12)
[2020-01-14 06:30] LABS: Calcium 8.5 MG/DL (8.5-10.1); Osmolality,Calculated 281.8 MOS/KG (273-304)
[2020-01-14] MEDS: SODIUM CHLORIDE 0.9% 1,000 ML IV SCH (09:20)
[2020-01-14] MEDS: PANTOPRAZOLE 40 MG VIAL IV SCH (10:12)
[2020-01-14] MEDS: HEPARIN 5,000 UNIT/1 ML VIAL SUBCUT SCH ×2 (10:12→17:19)
[2020-01-14] MEDS: LATANOPROST 0.005% OPH SOLN 2.5 ML BOTTLE BOTH EYES SCH (10:13)
[2020-01-14] MEDS: CARBOXYMETHYLCELLULOSE 1% OPH SOLN BOTH EYES SCH ×2 (10:13→21:44)
[2020-01-14] MEDS: CIPROFLOXACIN INJ 200 MG in PREMIX 1 EACH IV SCH (10:23)
[2020-01-14] MEDS: HYDROmorphone PCA 30 MG/30 ML SYRINGE IV SCH (12:00)
[2020-01-14] MEDS ORDERED: TRACE ELEMENTS (5) 1 ML, MULTIVITAMIN INJ 10 ML in AMINO ACIDS/DEXT/LYTES 4.25-5% 2,000 ML IV SCH (17:00)
[2020-01-14] MEDS: HYDROmorphone 2 MG/1 ML VIAL IV PRN (20:38)
[2020-01-14] MEDS: TEMAZEPAM 15 MG CAPSULE PO SCH (21:44)
[2020-01-15] MEDS: HEPARIN 5,000 UNIT/1 ML VIAL SUBCUT SCH ×3 (00:51→16:58)
[2020-01-15] MEDS: SODIUM CHLORIDE 0.9% 1,000 ML IV SCH (05:45)
[2020-01-15 08:26] LABS: Calcium 8.5 MG/DL (8.5-10.1); Osmolality,Calculated 290.7 MOS/KG (273-304)
[2020-01-15] MEDS ORDERED: TUBERCULIN SKIN TEST 0.1 ML SYRINGE INTRADERM ONE (08:30)
[2020-01-15] MEDS: PANTOPRAZOLE 40 MG VIAL IV SCH (08:59)
[2020-01-15] MEDS: metroNIDAZOLE INJ 500 MG in PREMIX 1 EACH IV SCH ×2 (09:06→16:47)
[2020-01-15] MEDS: LATANOPROST 0.005% OPH SOLN 2.5 ML BOTTLE BOTH EYES SCH (09:15)
[2020-01-15] MEDS: CARBOXYMETHYLCELLULOSE 1% OPH SOLN BOTH EYES SCH ×2 (09:15→21:01)
[2020-01-15] MEDS: CIPROFLOXACIN INJ 200 MG in PREMIX 1 EACH IV SCH (10:20)
[2020-01-15] MEDS ORDERED: DEXTROSE 10% IV SCH (17:00)
[2020-01-15] MEDS ORDERED: STERILE WATER IV SCH (17:00)
[2020-01-15] MEDS ORDERED: AMINO ACIDS IV SCH (17:00)
[2020-01-15] MEDS ORDERED: TRACE ELEMENTS (5) 1 ML in AMINO ACIDS/DEXT/LYTES 4.25-5% 2,000 ML IV SCH (17:00)
[2020-01-15] MEDS: TEMAZEPAM 15 MG CAPSULE PO SCH (21:01)
[2020-01-16] MEDS: HEPARIN 5,000 UNIT/1 ML VIAL SUBCUT SCH ×3 (00:26→16:38)
[2020-01-16] MEDS: metroNIDAZOLE INJ 500 MG in PREMIX 1 EACH IV SCH ×3 (00:26→16:34)
[2020-01-16 06:20] LABS: Calcium 8.3 MG/DL (8.5-10.1)
[2020-01-16] MEDS: HYDROmorphone 2 MG/1 ML VIAL IV PRN ×2 (06:22→21:25)
[2020-01-16] MEDS ORDERED: BUPIVACAINE MPF 0.25% 30 ML VIAL ONE (08:13)
[2020-01-16] MEDS ORDERED: TISSUE ADHESIVE 1 EACH APPLICATOR TOP ONE (08:13)
[2020-01-16] MEDS ORDERED: LIDOCAINE 1%/EPI INJ 20 ML VIAL ONE (08:14)
[2020-01-16] MEDS ORDERED: MIDAZOLAM 2 MG/2 ML VIAL ONE (08:20)
[2020-01-16] MEDS ORDERED: KETAMINE 500 MG/10 ML VIAL ONE (08:20)
[2020-01-16] MEDS: CIPROFLOXACIN INJ 200 MG in PREMIX 1 EACH IV SCH (08:59)
[2020-01-16] MEDS: CARBOXYMETHYLCELLULOSE 1% OPH SOLN BOTH EYES SCH ×2 (09:00→21:26)
[2020-01-16] MEDS: METOPROLOL TARTRATE 25 MG TABLET PO SCH ×2 (09:00→21:27)
[2020-01-16] MEDS: LATANOPROST 0.005% OPH SOLN 2.5 ML BOTTLE BOTH EYES SCH (09:00)
[2020-01-16] MEDS: PANTOPRAZOLE 40 MG VIAL IV SCH (09:00)
[2020-01-16] MEDS ORDERED: propofoL 200 MG/20 ML VIAL IV ONE (09:03)
[2020-01-16] MEDS ORDERED: LIDOCAINE 2% 5 ML VIAL ONE (09:03)
[2020-01-16] MEDS ORDERED: HYDROCORTISONE 100 MG VIAL ONE (09:03)
[2020-01-16] MEDS ORDERED: SODIUM CHLORIDE 0.9% 250 ML IV ONE (09:03)
[2020-01-16] MEDS ORDERED: PHENYLEPHRINE 1 MG/10 ML SYRINGE IV ONE (09:06)
[2020-01-16 10:20] LABS: Hepatitis B Core IgM Quant 0.18 Index; Hepatitis B Surface Ag Quant < 0.10 Index; Hepatitis B Surface Ag Result Negative (Negative); Hepatitis C Virus Ab Quant 0.08 Index; Hepatitis C Virus Ab Result Negative (Negative)
[2020-01-16] MEDS ORDERED: HEPARIN 10,000 UNIT/10 ML VIAL IV PRN (12:04)
[2020-01-16] MEDS: SODIUM CHLORIDE 0.9% 1,000 ML IV SCH (12:32)
[2020-01-16] MEDS ORDERED: TRACE ELEMENTS IV SCH (17:00)
[2020-01-16] MEDS ORDERED: STERILE WATER IV SCH (17:00)
[2020-01-16] MEDS ORDERED: MULTIVITAMIN PEDIATRIC IV SCH (17:00)
[2020-01-16] MEDS ORDERED: [UNRECOGNIZED DRUG - OTHER] IV SCH (17:00)
[2020-01-16] MEDS: TEMAZEPAM 15 MG CAPSULE PO SCH (21:26)
[2020-01-17] MEDS: metroNIDAZOLE INJ 500 MG in PREMIX 1 EACH IV SCH ×3 (00:45→20:40)
[2020-01-17] MEDS: HEPARIN 5,000 UNIT/1 ML VIAL SUBCUT SCH ×3 (00:49→17:47)
[2020-01-17 06:20] LABS: Basophils % 0.3 % (0.0-0.8); Eosinophils # 0.1 10*3/uL (0.0-0.87); Eosinophils % 0.8 % (0.00-10.9); Hematocrit 24.2 VOL% (35.7-47.0); Hemoglobin 7.7 GM/DL (12.0-16.0); Immature Granulocytes % 0.7 %; Immature Granulocytes Absolute 0.05 #; Lymphocytes # 0.8 10*3/uL (1.4-4.0); Lymphocytes % 10.9 % (21.3-54.2); Mean Corpuscular HGB Conc 31.8 GM/DL (32-36); Mean Platelet Volume 10.3 FL (9.6-12.0); Monocytes % 13.7 % (1.7-12.7); Neutrophils % 73.6 % (38.7-73.9); Platelet Count 162 T/CUMM (130-400); Red Blood Count 2.66 MC/CUMM (3.8-5.5); Red Cell Distribution Width 15.6 % (9.3-17.3); White Blood Count 7.5 T/CUMM (4-12)
[2020-01-17 06:46] LABS: Albumin 1.6 G/DL (3.4-5.0); Bilirubin,Direct 0.12 MG/DL (0.0-0.20); Bilirubin,Indirect 0.5 MG/DL (0.0-1.0); Bilirubin,Total 0.6 MG/DL (0.2-1.0); Total Protein 5.5 G/DL (6.4-8.3)
[2020-01-17] MEDS ORDERED: DOCUSATE SODIUM 100 MG CAPSULE PO PRN (07:28)
[2020-01-17 07:35] LABS: Band Neutrophils 2 % (0-10); Eosinophils 1 % (0-10); Lymphocytes 15 % (20-55); Segmented Neutrophils 77 % (50-85); Total Cells Counted 100
[2020-01-17 07:36] LABS: Hypochromasia 1+; Microcytosis 1+; Ovalocytes Slight; Platelet Estimate Adequate
[2020-01-17] MEDS: CIPROFLOXACIN INJ 200 MG in PREMIX 1 EACH IV SCH (10:41)
[2020-01-17] MEDS: LATANOPROST 0.005% OPH SOLN 2.5 ML BOTTLE BOTH EYES SCH (10:42)
[2020-01-17] MEDS: METOPROLOL TARTRATE 25 MG TABLET PO SCH ×3 (10:42→20:58)
[2020-01-17] MEDS: PANTOPRAZOLE 40 MG VIAL IV SCH (10:42)
[2020-01-17] MEDS: CARBOXYMETHYLCELLULOSE 1% OPH SOLN BOTH EYES SCH ×2 (10:42→20:40)
[2020-01-17] MEDS: HYDROmorphone 2 MG/1 ML VIAL IV PRN (14:11)
[2020-01-17] MEDS ORDERED: TRACE ELEMENTS IV SCH (17:00)
[2020-01-17] MEDS ORDERED: [UNRECOGNIZED DRUG - OTHER] IV SCH (17:00)
[2020-01-17] MEDS ORDERED: AMINO ACIDS IV SCH (17:00)
[2020-01-17] MEDS ORDERED: STERILE WATER IV SCH (17:00)
[2020-01-17] MEDS: TEMAZEPAM 15 MG CAPSULE PO SCH (20:39)
[2020-01-17] MEDS: ALBUMIN 25% 25 GM in PREMIX 1 EACH IV SCH (23:18)
[2020-01-18] MEDS: HEPARIN 5,000 UNIT/1 ML VIAL SUBCUT SCH ×3 (01:18→18:08)
[2020-01-18] MEDS: metroNIDAZOLE INJ 500 MG in PREMIX 1 EACH IV SCH ×3 (04:14→21:37)
[2020-01-18] MEDS: ALBUMIN 25% 25 GM in PREMIX 1 EACH IV SCH ×3 (06:11→22:52)
[2020-01-18] MEDS ORDERED: FUROSEMIDE 40 MG/4 ML VIAL IV ONE (07:30)
[2020-01-18] MEDS: CARBOXYMETHYLCELLULOSE 1% OPH SOLN BOTH EYES SCH ×2 (08:03→21:28)
[2020-01-18] MEDS: LATANOPROST 0.005% OPH SOLN 2.5 ML BOTTLE BOTH EYES SCH (08:03)
[2020-01-18] MEDS: METOPROLOL TARTRATE 25 MG TABLET PO SCH ×2 (08:03→21:29)
[2020-01-18] MEDS: PANTOPRAZOLE 40 MG VIAL IV SCH (08:07)
[2020-01-18] MEDS: CIPROFLOXACIN INJ 200 MG in PREMIX 1 EACH IV SCH (08:09)
[2020-01-18 09:27] LABS: Basophils % 0.3 % (0.0-0.8); Eosinophils # 0.2 10*3/uL (0.0-0.87); Hematocrit 22.4 VOL% (35.7-47.0); Hemoglobin 7.3 GM/DL (12.0-16.0); Immature Granulocytes % 0.7 %; Immature Granulocytes Absolute 0.07 #; Lymphocytes # 1.1 10*3/uL (1.4-4.0); Lymphocytes % 10.4 % (21.3-54.2); Mean Corpuscular HGB Conc 32.6 GM/DL (32-36); Mean Platelet Volume 10.5 FL (9.6-12.0); Monocytes % 7.7 % (1.7-12.7); Neutrophils % 78.9 % (38.7-73.9); Platelet Count 148 T/CUMM (130-400); Red Blood Count 2.49 MC/CUMM (3.8-5.5); Red Cell Distribution Width 15.6 % (9.3-17.3); White Blood Count 10.2 T/CUMM (4-12)
[2020-01-18 09:39] LABS: Calcium 7.6 MG/DL (8.5-10.1); Osmolality,Calculated 281.7 MOS/KG (273-304)
[2020-01-18] MEDS: FERROUS SULFATE 325 MG TABLET PO SCH ×2 (12:21→18:07)
[2020-01-18] MEDS ORDERED: SODIUM CHLORIDE 0.9% 1,000 ML IV PRN (14:35)
[2020-01-18] MEDS ORDERED: FUROSEMIDE 20 MG/2 ML VIAL IV ONE (18:00)
[2020-01-18] MEDS: TEMAZEPAM 15 MG CAPSULE PO SCH (21:29)
[2020-01-18] MEDS: FUROSEMIDE 40 MG/4 ML VIAL IV SCH (21:34)
[2020-01-19] MEDS: HEPARIN 5,000 UNIT/1 ML VIAL SUBCUT SCH ×3 (00:20→16:58)
[2020-01-19] MEDS: HYDROmorphone 2 MG/1 ML VIAL IV PRN ×2 (02:21→19:37)
[2020-01-19] MEDS: metroNIDAZOLE INJ 500 MG in PREMIX 1 EACH IV SCH ×3 (04:47→20:56)
[2020-01-19 05:57] LABS: Basophils % 0.2 % (0.0-0.8); Eosinophils # 0.2 10*3/uL (0.0-0.87); Hematocrit 24.9 VOL% (35.7-47.0); Hemoglobin 8.1 GM/DL (12.0-16.0); Immature Granulocytes % 1.1 %; Immature Granulocytes Absolute 0.16 #; Lymphocytes # 1.2 10*3/uL (1.4-4.0); Lymphocytes % 8.2 % (21.3-54.2); Mean Corpuscular HGB Conc 32.5 GM/DL (32-36); Mean Corpuscular Volume 89.6 FL (87-102); Mean Platelet Volume 10.6 FL (9.6-12.0); Monocytes % 10.5 % (1.7-12.7); Platelet Count 167 T/CUMM (130-400); Red Blood Count 2.78 MC/CUMM (3.8-5.5); Red Cell Distribution Width 15.5 % (9.3-17.3); White Blood Count 14.9 T/CUMM (4-12)
[2020-01-19] MEDS: ALBUMIN 25% 25 GM in PREMIX 1 EACH IV SCH ×3 (06:44→22:17)
[2020-01-19 06:52] LABS: Eosinophils 1 % (0-10); Lymphocytes 12 % (20-55); Platelet Estimate Adequate; Segmented Neutrophils 74 % (50-85); Total Cells Counted 100
[2020-01-19 06:53] LABS: Hypochromasia 1+; Microcytosis 1+
[2020-01-19] MEDS: PANTOPRAZOLE 40 MG VIAL IV SCH (09:57)
[2020-01-19] MEDS: CARBOXYMETHYLCELLULOSE 1% OPH SOLN BOTH EYES SCH ×2 (09:57→20:56)
[2020-01-19] MEDS: LATANOPROST 0.005% OPH SOLN 2.5 ML BOTTLE BOTH EYES SCH (09:57)
[2020-01-19] MEDS: FERROUS SULFATE 325 MG TABLET PO SCH ×2 (09:57→16:58)
[2020-01-19] MEDS: METOPROLOL TARTRATE 25 MG TABLET PO SCH (09:59)
[2020-01-19] MEDS: FUROSEMIDE 40 MG/4 ML VIAL IV SCH ×2 (09:59→16:59)
[2020-01-19] MEDS: CIPROFLOXACIN INJ 200 MG in PREMIX 1 EACH IV SCH (10:02)
[2020-01-19 10:47] LABS: Calcium 7.8 MG/DL (8.5-10.1); Osmolality,Calculated 279.7 MOS/KG (273-304)
[2020-01-19] MEDS ORDERED: METOPROLOL TARTRATE 5 MG/5 ML VIAL IV ONE (18:46)
[2020-01-19] MEDS: METOPROLOL TARTRATE 50 MG TABLET PO SCH (20:55)
[2020-01-19] MEDS: TEMAZEPAM 15 MG CAPSULE PO SCH (20:56)
[2020-01-20] MEDS: HEPARIN 5,000 UNIT/1 ML VIAL SUBCUT SCH (01:12)
[2020-01-20] MEDS ORDERED: METOPROLOL TARTRATE 5 MG/5 ML VIAL IV ONE (04:38)
[2020-01-20] MEDS: metroNIDAZOLE INJ 500 MG in PREMIX 1 EACH IV SCH ×3 (04:58→20:59)
[2020-01-20] MEDS: HYDROmorphone 2 MG/1 ML VIAL IV PRN ×2 (06:15→18:20)
[2020-01-20] MEDS: ALBUMIN 25% 25 GM in PREMIX 1 EACH IV SCH ×2 (06:17→16:02)
[2020-01-20] MEDS ORDERED: HEPARIN 5,000 UNIT/1 ML VIAL IV ONE (07:08)
[2020-01-20 07:20] LABS: Basophils # 0.1 10*3/uL (0.0-0.2); Basophils % 0.3 % (0.0-0.8); Eosinophils # 0.2 10*3/uL (0.0-0.87); Eosinophils % 1.4 % (0.00-10.9); Hematocrit 28.2 VOL% (35.7-47.0); Hemoglobin 9.3 GM/DL (12.0-16.0); Immature Granulocytes % 1.1 %; Immature Granulocytes Absolute 0.16 #; Lymphocytes % 6.6 % (21.3-54.2); Mean Corpuscular Volume 89.2 FL (87-102); Monocytes % 10.1 % (1.7-12.7); NRBC # 0.02 10*3/uL; Neutrophils % 80.5 % (38.7-73.9); Platelet Count 207 T/CUMM (130-400); Red Blood Count 3.16 MC/CUMM (3.8-5.5); Red Cell Distribution Width 15.4 % (9.3-17.3); White Blood Count 14.7 T/CUMM (4-12)
[2020-01-20] MEDS ORDERED: DILTIAZEM 25 MG/5 ML VIAL IV STA (07:20)
[2020-01-20 07:54] LABS: Calcium 8.2 MG/DL (8.5-10.1); Osmolality,Calculated 279.8 MOS/KG (273-304)
[2020-01-20 08:35] LABS: Calcium 8.1 MG/DL (8.5-10.1); Osmolality,Calculated 281.7 MOS/KG (273-304)
[2020-01-20] MEDS: dilTIAZem Drip 125 MG/125 ML PREMIX IV SCH (08:38)
[2020-01-20] MEDS: HEPARIN DRIP 25,000 UNITS/500 ML PREMIX IV SCH (09:02)
[2020-01-20] MEDS ORDERED: POTASSIUM CHLORIDE 20 MEQ TABLET PO ONE (09:09)
[2020-01-20] MEDS: METOPROLOL TARTRATE 50 MG TABLET PO SCH ×2 (09:28→21:01)
[2020-01-20] MEDS: FERROUS SULFATE 325 MG TABLET PO SCH ×2 (09:28→17:23)
[2020-01-20] MEDS: CARBOXYMETHYLCELLULOSE 1% OPH SOLN BOTH EYES SCH ×2 (09:29→21:01)
[2020-01-20] MEDS: PANTOPRAZOLE 40 MG VIAL IV SCH (09:30)
[2020-01-20] MEDS: CIPROFLOXACIN INJ 200 MG in PREMIX 1 EACH IV SCH ×2 (09:33→09:38)
[2020-01-20] MEDS: LATANOPROST 0.005% OPH SOLN 2.5 ML BOTTLE BOTH EYES SCH (09:47)
[2020-01-20] MEDS ORDERED: AMIODARONE INJ 150 MG in DEXTROSE 5% 100 ML IV ONE (10:59)
[2020-01-20] MEDS ORDERED: AMIODARONE INJ 450 MG in DEXTROSE 5% 241 ML IV SCH (11:00)
[2020-01-20] MEDS: AMIODARONE INJ 450 MG in DEXTROSE 5% 241 ML IV SCH (17:00)
[2020-01-20] MEDS: ONDANSETRON 4 MG/2 ML VIAL IV PRN (18:21)
[2020-01-20] MEDS: TEMAZEPAM 15 MG CAPSULE PO SCH (21:00)
[2020-01-21] MEDS: metroNIDAZOLE INJ 500 MG in PREMIX 1 EACH IV SCH ×3 (03:53→21:38)
[2020-01-21 05:53] LABS: Basophils # 0.1 10*3/uL (0.0-0.2); Basophils % 0.6 % (0.0-0.8); Eosinophils # 0.1 10*3/uL (0.0-0.87); Eosinophils % 0.5 % (0.00-10.9); Hematocrit 31.6 VOL% (35.7-47.0); Hemoglobin 10.5 GM/DL (12.0-16.0); Immature Granulocytes % 1.9 %; Immature Granulocytes Absolute 0.23 #; Lymphocytes # 1.6 10*3/uL (1.4-4.0); Lymphocytes % 13.2 % (21.3-54.2); Mean Corpuscular HGB Conc 33.2 GM/DL (32-36); Mean Corpuscular Volume 89.8 FL (87-102); Mean Platelet Volume 11.1 FL (9.6-12.0); Monocytes % 13.5 % (1.7-12.7); NRBC # 0.05 10*3/uL; Neutrophils % 70.3 % (38.7-73.9); Platelet Count 237 T/CUMM (130-400); Red Blood Count 3.52 MC/CUMM (3.8-5.5); Red Cell Distribution Width 15.5 % (9.3-17.3); White Blood Count 11.8 T/CUMM (4-12)
[2020-01-21 06:00] LABS: Calcium 8.2 MG/DL (8.5-10.1)
[2020-01-21] MEDS: ALBUMIN 25% 25 GM in PREMIX 1 EACH IV SCH ×3 (08:05→14:52)
[2020-01-21] MEDS: dilTIAZem Drip 125 MG/125 ML PREMIX IV SCH (08:05)
[2020-01-21 08:50] LABS: Calcium 8.3 MG/DL (8.5-10.1); Osmolality,Calculated 284.8 MOS/KG (273-304)
[2020-01-21] MEDS: PANTOPRAZOLE 40 MG VIAL IV SCH (09:02)
[2020-01-21] MEDS: CARBOXYMETHYLCELLULOSE 1% OPH SOLN BOTH EYES SCH ×2 (09:44→21:47)
[2020-01-21] MEDS: METOPROLOL TARTRATE 50 MG TABLET PO SCH ×2 (09:44→21:38)
[2020-01-21] MEDS: CIPROFLOXACIN INJ 200 MG in PREMIX 1 EACH IV SCH (09:45)
[2020-01-21] MEDS: FERROUS SULFATE 325 MG TABLET PO SCH ×2 (09:45→17:05)
[2020-01-21] MEDS: LATANOPROST 0.005% OPH SOLN 2.5 ML BOTTLE BOTH EYES SCH (09:46)
[2020-01-21] MEDS ORDERED: AMIODARONE 200 MG TABLET PO ONE (10:06)
[2020-01-21] MEDS: AMIODARONE INJ 450 MG in DEXTROSE 5% 241 ML IV SCH (10:06)
[2020-01-21] MEDS: HEPARIN DRIP 25,000 UNITS/500 ML PREMIX IV SCH (10:26)
[2020-01-21] MEDS: AMIODARONE 200 MG TABLET PO SCH (17:00)
[2020-01-21 18:55] LABS: INR 2.3; PT Patient Result 23.5 SECS (9.8-11.9)
[2020-01-21] MEDS: TEMAZEPAM 15 MG CAPSULE PO SCH (21:37)
[2020-01-22] MEDS: ALBUMIN 25% 25 GM in PREMIX 1 EACH IV SCH ×2 (01:04→06:12)
[2020-01-22 04:10] LABS: Basophils # 0.1 10*3/uL (0.0-0.2); Basophils % 0.5 % (0.0-0.8); Eosinophils # 0.1 10*3/uL (0.0-0.87); Eosinophils % 0.6 % (0.00-10.9); Hematocrit 29.1 VOL% (35.7-47.0); Hemoglobin 9.7 GM/DL (12.0-16.0); Immature Granulocytes % 1.3 %; Immature Granulocytes Absolute 0.17 #; Lymphocytes # 1.2 10*3/uL (1.4-4.0); Lymphocytes % 9.3 % (21.3-54.2); Mean Corpuscular HGB Conc 33.3 GM/DL (32-36); Mean Corpuscular Volume 87.4 FL (87-102); Mean Platelet Volume 10.8 FL (9.6-12.0); Monocytes % 9.3 % (1.7-12.7); NRBC # 0.02 10*3/uL; Platelet Count 243 T/CUMM (130-400); Red Blood Count 3.33 MC/CUMM (3.8-5.5); Red Cell Distribution Width 15.2 % (9.3-17.3); White Blood Count 13.2 T/CUMM (4-12)
[2020-01-22] MEDS: metroNIDAZOLE INJ 500 MG in PREMIX 1 EACH IV SCH (04:24)
[2020-01-22 07:39] LABS: Albumin 3.9 G/DL (3.4-5.0); Bilirubin,Total 1.2 MG/DL (0.2-1.0); Calcium 8.7 MG/DL (8.5-10.1); Osmolality,Calculated 270.4 MOS/KG (273-304); Total Protein 6.4 G/DL (6.4-8.3)
[2020-01-22 08:30] LABS: Calcium 8.7 MG/DL (8.5-10.1); Osmolality,Calculated 275.1 MOS/KG (273-304)
[2020-01-22] MEDS: LATANOPROST 0.005% OPH SOLN 2.5 ML BOTTLE BOTH EYES SCH (09:10)
[2020-01-22] MEDS: CARBOXYMETHYLCELLULOSE 1% OPH SOLN BOTH EYES SCH ×2 (09:11→21:29)
[2020-01-22] MEDS: AMIODARONE 200 MG TABLET PO SCH (09:12)
[2020-01-22] MEDS: FERROUS SULFATE 325 MG TABLET PO SCH ×2 (09:12→18:02)
[2020-01-22] MEDS: PANTOPRAZOLE 40 MG VIAL IV SCH (09:13)
[2020-01-22] MEDS: METOPROLOL TARTRATE 50 MG TABLET PO SCH ×2 (09:13→21:29)
[2020-01-22 09:22] LABS: INR 2.5; PT Patient Result 25.5 SECS (9.8-11.9)
[2020-01-22] MEDS: HEPARIN DRIP 25,000 UNITS/500 ML PREMIX IV SCH (12:00)
[2020-01-22] MEDS ORDERED: POTASSIUM CHLORIDE 10 MEQ TABLET PO ONE (17:56)
[2020-01-22] MEDS: WARFARIN 2 MG TABLET PO SCH (18:02)
[2020-01-22] MEDS: ONDANSETRON 4 MG/2 ML VIAL IV PRN (18:32)
[2020-01-22] MEDS: TEMAZEPAM 15 MG CAPSULE PO SCH (21:29)
[2020-01-23 06:40] LABS: Basophils # 0.1 10*3/uL (0.0-0.2); Basophils % 0.6 % (0.0-0.8); Eosinophils # 0.2 10*3/uL (0.0-0.87); Eosinophils % 1.4 % (0.00-10.9); Hematocrit 31.2 VOL% (35.7-47.0); Hemoglobin 10.7 GM/DL (12.0-16.0); Immature Granulocytes % 1.7 %; Immature Granulocytes Absolute 0.22 #; Lymphocytes # 1.1 10*3/uL (1.4-4.0); Lymphocytes % 8.7 % (21.3-54.2); Mean Corpuscular HGB Conc 34.3 GM/DL (32-36); Mean Corpuscular Volume 86.9 FL (87-102); Mean Platelet Volume 10.8 FL (9.6-12.0); Monocytes % 8.2 % (1.7-12.7); NRBC # 0.03 10*3/uL; Neutrophils % 79.4 % (38.7-73.9); Platelet Count 286 T/CUMM (130-400); Red Blood Count 3.59 MC/CUMM (3.8-5.5); Red Cell Distribution Width 15.1 % (9.3-17.3); White Blood Count 12.8 T/CUMM (4-12)
[2020-01-23 06:47] LABS: INR 2.2; PT Patient Result 23.1 SECS (9.8-11.9)
[2020-01-23 07:10] LABS: Alanine Aminotransferase 403 U/L (13-56); Albumin 3.8 G/DL (3.4-5.0); Alkaline Phosphatase 113 U/L (45-117); Aspartate Amino Transferase > 2002 U/L (0-37); Total Protein 6.7 G/DL (6.4-8.3)
[2020-01-23 08:57] LABS: Calcium 8.9 MG/DL (8.5-10.1); Osmolality,Calculated 282.8 MOS/KG (273-304)
[2020-01-23] MEDS: PANTOPRAZOLE 40 MG VIAL IV SCH (09:40)
[2020-01-23] MEDS: LATANOPROST 0.005% OPH SOLN 2.5 ML BOTTLE BOTH EYES SCH (09:41)
[2020-01-23] MEDS: AMIODARONE 200 MG TABLET PO SCH (09:41)
[2020-01-23] MEDS: FERROUS SULFATE 325 MG TABLET PO SCH ×2 (09:41→17:05)
[2020-01-23] MEDS: CARBOXYMETHYLCELLULOSE 1% OPH SOLN BOTH EYES SCH ×2 (09:41→21:28)
[2020-01-23] MEDS: METOPROLOL TARTRATE 50 MG TABLET PO SCH ×2 (09:41→21:27)
[2020-01-23 13:57] LABS: % Iron Saturation 25.2 % (18-50)
[2020-01-23] MEDS ORDERED: WARFARIN 5 MG TABLET PO SCH (18:00)
[2020-01-23] MEDS: TEMAZEPAM 15 MG CAPSULE PO SCH (21:27)
[2020-01-24 03:57] LABS: Basophils # 0.1 10*3/uL (0.0-0.2); Basophils % 0.7 % (0.0-0.8); Eosinophils # 0.3 10*3/uL (0.0-0.87); Eosinophils % 2.1 % (0.00-10.9); Hematocrit 30.2 VOL% (35.7-47.0); Hemoglobin 10.1 GM/DL (12.0-16.0); Immature Granulocytes % 1.2 %; Immature Granulocytes Absolute 0.14 #; Lymphocytes % 8.3 % (21.3-54.2); Mean Corpuscular HGB Conc 33.4 GM/DL (32-36); Mean Corpuscular Volume 87.5 FL (87-102); Mean Platelet Volume 10.9 FL (9.6-12.0); Monocytes % 8.4 % (1.7-12.7); NRBC # 0.03 10*3/uL; Neutrophils % 79.3 % (38.7-73.9); Platelet Count 272 T/CUMM (130-400); Red Blood Count 3.45 MC/CUMM (3.8-5.5); Red Cell Distribution Width 15.3 % (9.3-17.3); White Blood Count 11.8 T/CUMM (4-12)
[2020-01-24 04:25] LABS: Albumin 2.9 G/DL (3.4-5.0); Bilirubin,Direct 0.45 MG/DL (0.0-0.20); Bilirubin,Indirect 0.6 MG/DL (0.0-1.0); Total Protein 5.9 G/DL (6.4-8.3)
[2020-01-24 04:31] LABS: Calcium 8.8 MG/DL (8.5-10.1); Osmolality,Calculated 284.7 MOS/KG (273-304)
[2020-01-24 05:30] LABS: INR 1.8; PT Patient Result 18.4 SECS (9.8-11.9)
[2020-01-24] MEDS ORDERED: POTASSIUM CHLORIDE 20 MEQ TABLET PO SCH (09:00)
[2020-01-24] MEDS: PANTOPRAZOLE 40 MG VIAL IV SCH (09:14)
[2020-01-24] MEDS: FERROUS SULFATE 325 MG TABLET PO SCH ×2 (09:14→17:20)
[2020-01-24] MEDS: CARBOXYMETHYLCELLULOSE 1% OPH SOLN BOTH EYES SCH ×2 (09:14→20:56)
[2020-01-24] MEDS: AMIODARONE 200 MG TABLET PO SCH (09:15)
[2020-01-24] MEDS: METOPROLOL TARTRATE 50 MG TABLET PO SCH ×2 (09:15→20:55)
[2020-01-24] MEDS: LATANOPROST 0.005% OPH SOLN 2.5 ML BOTTLE BOTH EYES SCH (09:15)
[2020-01-24] MEDS: WARFARIN 2 MG TABLET PO SCH (17:20)
[2020-01-24] MEDS: TEMAZEPAM 15 MG CAPSULE PO SCH (20:55)
[2020-01-24] MEDS ORDERED: POTASSIUM CHLORIDE 20 MEQ TABLET PO ONE (22:30)
[2020-01-24] MEDS ORDERED: MAGNESIUM SULF RIDER 2 GM in PREMIX 1 EACH IV ONE (22:32)
[2020-01-25 05:43] LABS: Basophils # 0.1 10*3/uL (0.0-0.2); Basophils % 0.6 % (0.0-0.8); Eosinophils # 0.3 10*3/uL (0.0-0.87); Eosinophils % 3.1 % (0.00-10.9); Hematocrit 28.8 VOL% (35.7-47.0); Hemoglobin 9.4 GM/DL (12.0-16.0); Immature Granulocytes % 1.1 %; Immature Granulocytes Absolute 0.11 #; Lymphocytes # 1.3 10*3/uL (1.4-4.0); Lymphocytes % 12.5 % (21.3-54.2); Mean Corpuscular HGB Conc 32.6 GM/DL (32-36); Mean Corpuscular Volume 89.2 FL (87-102); Mean Platelet Volume 10.8 FL (9.6-12.0); Monocytes % 10.9 % (1.7-12.7); Neutrophils % 71.8 % (38.7-73.9); Platelet Count 257 T/CUMM (130-400); Red Blood Count 3.23 MC/CUMM (3.8-5.5); White Blood Count 10.3 T/CUMM (4-12)
[2020-01-25 06:09] LABS: INR 1.7; PT Patient Result 17.5 SECS (9.8-11.9)
[2020-01-25 06:16] LABS: Bilirubin,Direct 0.39 MG/DL (0.0-0.20); Bilirubin,Indirect 1.4 MG/DL (0.0-1.0); Bilirubin,Total 1.8 MG/DL (0.2-1.0); Calcium 9.1 MG/DL (8.5-10.1); Osmolality,Calculated 289.4 MOS/KG (273-304); Total Protein 6.5 G/DL (6.4-8.3)
[2020-01-25] MEDS ORDERED: MAGNESIUM CHLORIDE 64 MG TABLET PO SCH (09:00)
[2020-01-25] MEDS ORDERED: POTASSIUM CHLORIDE 20 MEQ TABLET PO SCH (09:00)
[2020-01-25 09:12] LABS: Band Neutrophils 2 % (0-10); Eosinophils 1 % (0-10); Hypochromasia 2+; Lymphocytes 9 % (20-55); Microcytosis 1+; Segmented Neutrophils 79 % (50-85); Total Cells Counted 100
[2020-01-25 09:13] LABS: Anisocytosis 1+; Platelet Estimate Normal; Target Cells Few
[2020-01-25] MEDS: CARBOXYMETHYLCELLULOSE 1% OPH SOLN BOTH EYES SCH (09:54)
[2020-01-25] MEDS: AMIODARONE 200 MG TABLET PO SCH (09:54)
[2020-01-25] MEDS: METOPROLOL TARTRATE 50 MG TABLET PO SCH (09:54)
[2020-01-25] MEDS: FERROUS SULFATE 325 MG TABLET PO SCH (09:54)
[2020-01-25] MEDS: LATANOPROST 0.005% OPH SOLN 2.5 ML BOTTLE BOTH EYES SCH (10:22)
[2020-01-25] MEDS ORDERED: AMIODARONE 200 MG TABLET PO SCH (10:41)
[2020-01-25] MEDS: PANTOPRAZOLE 40 MG VIAL IV SCH (10:48)
[2020-01-25 12:33] VITALS: BP 118/61
== END 2020-01-25 16:11 | DRG 329 ==
LOC: EDUNIT# → N.ED 12:20 → N.EDINP 15:29 → N.3E 17:09 → N.ICU 01-20 08:18 → N.TELEN 01-20 16:49
PROVIDERS: ADMIT Student in an Organized Health Care Education/Training Program; ATTEND Student in an Organized Health Care Education/Training Program

== ENCOUNTER 2020-02-17 10:38 | Inpatient (IN) ==
[2020-02-17] MEDS ORDERED: ONDANSETRON 4 MG/2 ML VIAL IV STA (11:11)
[2020-02-17] MEDS ORDERED: DEXAMETHASONE 4 MG/1 ML VIAL IV STA (11:21)
[2020-02-17] MEDS ORDERED: SODIUM CHLORIDE 0.9% 1,000 ML IV STA (11:21)
[2020-02-17] MEDS ORDERED: cefTRIAXone 1,000 MG in SODIUM CHLORIDE 0.9% 100 ML IV STA (11:22)
[2020-02-17 11:41] LABS: Basophils # 0.1 10*3/uL (0.0-0.2); Basophils % 0.4 % (0.0-0.8); Eosinophils # 0.2 10*3/uL (0.0-0.87); Eosinophils % 1.1 % (0.00-10.9); Hematocrit 33.5 VOL% (35.7-47.0); Lymphocytes # 3.7 10*3/uL (1.4-4.0); Lymphocytes % 18.9 % (21.3-54.2); Mean Corpuscular HGB Conc 29.9 GM/DL (32-36); Mean Corpuscular Volume 95.4 FL (87-102); Mean Platelet Volume 11.6 FL (9.6-12.0); Monocytes % 10.8 % (1.7-12.7); NRBC # 0.05 10*3/uL; Neutrophils % 67.8 % (38.7-73.9); Platelet Count 251 T/CUMM (130-400); Red Blood Count 3.51 MC/CUMM (3.8-5.5); White Blood Count 19.6 T/CUMM (4-12)
[2020-02-17] MEDS ORDERED: VANCOMYCIN INJ 1,000 MG in SODIUM CHLORIDE 0.9% 250 ML IV STA (11:46)
[2020-02-17] MEDS ORDERED: CARBOXYMETHYLCELLULOSE 1% OPH SOLN BOTH EYES PRN (11:58)
[2020-02-17] MEDS ORDERED: cefTRIAXone 500 MG VIAL ONE (11:59)
[2020-02-17 12:05] LABS: PT Patient Result 128.8 SECS (9.8-11.9)
[2020-02-17 12:10] LABS: INR 13.8
[2020-02-17] MEDS ORDERED: PHYTONADIONE 10 MG/1 ML AMP SUBCUT STA (12:11)
[2020-02-17 12:26] LABS: Albumin 2.4 G/DL (3.4-5.0); Bilirubin,Total 0.4 MG/DL (0.2-1.0); Calcium 9.9 MG/DL (8.5-10.1); Osmolality,Calculated 325.7 MOS/KG (273-304); Potassium 4.8 MMOL/L (3.5-5.1); Total Protein 7.9 G/DL (6.4-8.3)
[2020-02-17] MEDS ORDERED: ONDANSETRON 4 MG/2 ML VIAL IV PRN (13:11)
[2020-02-17] MEDS ORDERED: ACETAMINOPHEN 325 MG TABLET PO PRN (13:11)
[2020-02-17] MEDS: SODIUM CHLORIDE 0.9% 1,000 ML IV SCH (14:30)
[2020-02-17] MEDS: BUDESONIDE 0.5 MG/2 ML NEB RESP TX SCH (19:30)
[2020-02-17] MEDS ORDERED: METOPROLOL TARTRATE 5 MG/5 ML VIAL IV ONE (20:30)
[2020-02-17] MEDS: DOCUSATE SODIUM 100 MG CAPSULE PO SCH (21:31)
[2020-02-18] MEDS ORDERED: METOPROLOL TARTRATE 5 MG/5 ML VIAL IV SCH
[2020-02-18] MEDS ORDERED: METOPROLOL TARTRATE 5 MG/5 ML VIAL IV PRN (00:30)
[2020-02-18] MEDS: SODIUM CHLORIDE 0.9% 1,000 ML IV SCH ×2 (00:43→06:32)
[2020-02-18 04:00] LABS: Basophils # 0.1 10*3/uL (0.0-0.2); Basophils % 0.2 % (0.0-0.8); Hematocrit 30.2 VOL% (35.7-47.0); Hemoglobin 9.2 GM/DL (12.0-16.0); Immature Granulocytes % 0.8 %; Immature Granulocytes Absolute 0.17 #; Lymphocytes # 0.9 10*3/uL (1.4-4.0); Lymphocytes % 4.1 % (21.3-54.2); Mean Corpuscular HGB Conc 30.5 GM/DL (32-36); Mean Corpuscular Volume 94.7 FL (87-102); Mean Platelet Volume 11.4 FL (9.6-12.0); Monocytes % 2.5 % (1.7-12.7); NRBC # 0.03 10*3/uL; Neutrophils % 92.4 % (38.7-73.9); Platelet Count 215 T/CUMM (130-400); Red Blood Count 3.19 MC/CUMM (3.8-5.5); Red Cell Distribution Width 15.9 % (9.3-17.3); White Blood Count 22.6 T/CUMM (4-12)
[2020-02-18 04:18] LABS: Calcium 9.4 MG/DL (8.5-10.1); Potassium 5.2 MMOL/L (3.5-5.1)
[2020-02-18 04:23] LABS: Bilirubin,Direct 0.21 MG/DL (0.0-0.20); Bilirubin,Indirect 0.8 MG/DL (0.0-1.0); Total Protein 7.9 G/DL (6.4-8.3)
[2020-02-18 04:25] LABS: Hypochromasia 1+; Lymphocytes 3 % (20-55); Microcytosis 1+; Platelet Estimate Adequate; Segmented Neutrophils 96 % (50-85); Total Cells Counted 100
[2020-02-18] MEDS: methylPREDNISolone SOD SUC 40 MG/1 ML VIAL IV SCH ×3 (06:30→21:10)
[2020-02-18] MEDS ORDERED: cefTRIAXone 1,000 MG in SYRINGE 1 EACH IV SCH (09:00)
[2020-02-18] MEDS: PANTOPRAZOLE 40 MG TABLET PO SCH (10:34)
[2020-02-18] MEDS: DOCUSATE SODIUM 100 MG CAPSULE PO SCH ×2 (10:34→21:13)
[2020-02-18] MEDS: LATANOPROST 0.005% OPH SOLN 2.5 ML BOTTLE BOTH EYES SCH (10:48)
[2020-02-18] MEDS: DEXTROSE 5% NACL 0.45% 1,000 ML IV SCH (13:11)
[2020-02-18] MEDS ORDERED: VANCOMYCIN INJ 1,250 MG in SODIUM CHLORIDE 0.9% 250 ML IV PRN (13:57)
[2020-02-18 14:11] LABS: PT Patient Result 78.5 SECS (9.8-11.9)
[2020-02-18 14:15] LABS: INR 8.2
[2020-02-18] MEDS: BUDESONIDE 0.5 MG/2 ML NEB RESP TX SCH (16:38)
[2020-02-18] MEDS ORDERED: VANCOMYCIN INJ 1,250 MG in SODIUM CHLORIDE 0.9% 250 ML IV ONE (17:00)
[2020-02-18] MEDS ORDERED: NYSTATIN CREAM 15 GM TUBE TOP PRN (22:47)
[2020-02-19] MEDS: METOPROLOL TARTRATE 5 MG/5 ML VIAL IV SCH ×4 (00:07→16:20)
[2020-02-19] MEDS: FLUCONAZOLE INJ 100 MG in IV BAG 1 EACH IV SCH ×2 (00:07→23:37)
[2020-02-19] MEDS: DEXTROSE 5% NACL 0.45% 1,000 ML IV SCH ×3 (02:00→23:44)
[2020-02-19 04:44] LABS: Basophils % 0.2 % (0.0-0.8); Hematocrit 28.3 VOL% (35.7-47.0); Hemoglobin 8.7 GM/DL (12.0-16.0); Immature Granulocytes % 1.2 %; Immature Granulocytes Absolute 0.24 #; Lymphocytes # 0.7 10*3/uL (1.4-4.0); Lymphocytes % 3.3 % (21.3-54.2); Mean Corpuscular HGB Conc 30.7 GM/DL (32-36); Mean Corpuscular Volume 94.6 FL (87-102); Monocytes % 3.4 % (1.7-12.7); NRBC # 0.07 10*3/uL; Neutrophils % 91.9 % (38.7-73.9); Platelet Count 185 T/CUMM (130-400); Red Blood Count 2.99 MC/CUMM (3.8-5.5); White Blood Count 19.8 T/CUMM (4-12)
[2020-02-19 05:06] LABS: Hypochromasia 1+; Lymphocytes 5 % (20-55); Microcytosis 1+; Ovalocytes Slight; Platelet Estimate Adequate; Segmented Neutrophils 94 % (50-85); Total Cells Counted 100
[2020-02-19 05:13] LABS: Albumin 1.9 G/DL (3.4-5.0); Bilirubin,Total 0.7 MG/DL (0.2-1.0); Osmolality,Calculated 334.2 MOS/KG (273-304); Potassium 4.4 MMOL/L (3.5-5.1); Total Protein 7.7 G/DL (6.4-8.3); Uric Acid 12.1 MG/DL (2.6-6.0)
[2020-02-19 05:17] LABS: INR 5.4
[2020-02-19] MEDS: methylPREDNISolone SOD SUC 40 MG/1 ML VIAL IV SCH ×3 (06:19→21:37)
[2020-02-19] MEDS: LATANOPROST 0.005% OPH SOLN 2.5 ML BOTTLE BOTH EYES SCH (10:40)
[2020-02-19] MEDS: PANTOPRAZOLE 40 MG TABLET PO SCH (11:19)
[2020-02-19] MEDS: DOCUSATE SODIUM 100 MG CAPSULE PO SCH ×2 (11:19→21:29)
[2020-02-19] MEDS: ALBUMIN 25% 25 GM in PREMIX 1 EACH IV SCH ×2 (13:11→21:28)
[2020-02-19] MEDS ORDERED: METOPROLOL TARTRATE 5 MG/5 ML VIAL IV ONE (20:39)
[2020-02-19] MEDS ORDERED: SKIN HEALING OINT (AQUAPHOR) 50 GM TUBE TOP PRN (22:05)
[2020-02-20] MEDS: METOPROLOL TARTRATE 5 MG/5 ML VIAL IV SCH ×3 (00:22→11:08)
[2020-02-20] MEDS: ALBUMIN 25% 25 GM in PREMIX 1 EACH IV SCH ×2 (05:01→11:10)
[2020-02-20] MEDS: methylPREDNISolone SOD SUC 40 MG/1 ML VIAL IV SCH ×3 (05:04→22:02)
[2020-02-20 06:02] LABS: Basophils % 0.3 % (0.0-0.8); Hematocrit 27.6 VOL% (35.7-47.0); Hemoglobin 8.5 GM/DL (12.0-16.0); Immature Granulocytes % 3.5 %; Immature Granulocytes Absolute 0.51 #; Lymphocytes # 0.5 10*3/uL (1.4-4.0); Lymphocytes % 3.4 % (21.3-54.2); Mean Corpuscular HGB Conc 30.8 GM/DL (32-36); Mean Corpuscular Volume 93.9 FL (87-102); Mean Platelet Volume 11.4 FL (9.6-12.0); NRBC # 0.14 10*3/uL; Neutrophils % 87.8 % (38.7-73.9); Platelet Count 134 T/CUMM (130-400); Red Blood Count 2.94 MC/CUMM (3.8-5.5); Red Cell Distribution Width 16.3 % (9.3-17.3); White Blood Count 14.5 T/CUMM (4-12)
[2020-02-20 06:18] LABS: Calcium 8.7 MG/DL (8.5-10.1); Osmolality,Calculated 324.9 MOS/KG (273-304)
[2020-02-20 06:23] LABS: Albumin 3.4 G/DL (3.4-5.0); Bilirubin,Direct 0.25 MG/DL (0.0-0.20); Bilirubin,Indirect 0.6 MG/DL (0.0-1.0); Bilirubin,Total 0.8 MG/DL (0.2-1.0); Total Protein 8.2 G/DL (6.4-8.3)
[2020-02-20 06:32] LABS: Hypochromasia 1+; Lymphocytes 5 % (20-55); Microcytosis 1+; Platelet Estimate Normal; Segmented Neutrophils 92 % (50-85); Total Cells Counted 100
[2020-02-20 07:04] LABS: PT Patient Result 56.4 SECS (9.8-11.9)
[2020-02-20 07:05] LABS: INR 5.8
[2020-02-20] MEDS: SODIUM HYPOCHLORITE 0.25% IRRIG 473 ML BOTTLE TOP SCH (11:06)
[2020-02-20] MEDS: DOCUSATE SODIUM 100 MG CAPSULE PO SCH ×2 (11:06→21:51)
[2020-02-20] MEDS: METOPROLOL TARTRATE 50 MG TABLET PO SCH ×2 (11:07→21:51)
[2020-02-20] MEDS: PANTOPRAZOLE 40 MG TABLET PO SCH (11:08)
[2020-02-20] MEDS: LATANOPROST 0.005% OPH SOLN 2.5 ML BOTTLE BOTH EYES SCH (11:08)
[2020-02-20] MEDS ORDERED: METOPROLOL TARTRATE 5 MG/5 ML VIAL IV PRN (17:18)
[2020-02-20] MEDS: DEXTROSE 5% 1,000 ML IV SCH (19:11)
[2020-02-20] MEDS ORDERED: VANCOMYCIN INJ 1,250 MG in SODIUM CHLORIDE 0.9% 250 ML IV ONE (21:00)
[2020-02-21] MEDS: FLUCONAZOLE INJ 100 MG in IV BAG 1 EACH IV SCH (00:27)
[2020-02-21 05:33] LABS: Basophils % 0.2 % (0.0-0.8); Hemoglobin 7.8 GM/DL (12.0-16.0); Immature Granulocytes % 7.4 %; Immature Granulocytes Absolute 0.81 #; Lymphocytes # 0.4 10*3/uL (1.4-4.0); Mean Corpuscular Volume 95.9 FL (87-102); Mean Platelet Volume 11.3 FL (9.6-12.0); NRBC # 0.15 10*3/uL; Neutrophils % 83.4 % (38.7-73.9); Red Blood Count 2.71 MC/CUMM (3.8-5.5); Red Cell Distribution Width 16.6 % (9.3-17.3); White Blood Count 10.9 T/CUMM (4-12)
[2020-02-21 05:39] LABS: Platelet Count 100 T/CUMM (130-400)
[2020-02-21 05:41] LABS: PT Patient Result 48.9 SECS (9.8-11.9)
[2020-02-21 06:02] LABS: Lymphocytes 1 % (20-55); Nucleated Red Blood Cells 3 (0-5); Segmented Neutrophils 89 % (50-85); Total Cells Counted 100
[2020-02-21 06:03] LABS: Hypochromasia 2+; Microcytosis 1+; Platelet Estimate Decreased
[2020-02-21] MEDS: methylPREDNISolone SOD SUC 40 MG/1 ML VIAL IV SCH ×3 (06:07→22:24)
[2020-02-21 06:11] LABS: Albumin 3.1 G/DL (3.4-5.0); Bilirubin,Total 0.9 MG/DL (0.2-1.0); Osmolality,Calculated 324.9 MOS/KG (273-304); Potassium 4.1 MMOL/L (3.5-5.1); Total Protein 6.6 G/DL (6.4-8.3); Uric Acid 10.2 MG/DL (2.6-6.0)
[2020-02-21] MEDS: DOCUSATE SODIUM 100 MG CAPSULE PO SCH ×2 (10:13→22:23)
[2020-02-21] MEDS: PANTOPRAZOLE 40 MG TABLET PO SCH (10:13)
[2020-02-21] MEDS: LATANOPROST 0.005% OPH SOLN 2.5 ML BOTTLE BOTH EYES SCH (10:14)
[2020-02-21] MEDS: METOPROLOL TARTRATE 50 MG TABLET PO SCH ×2 (10:14→22:24)
[2020-02-21] MEDS: ALBUMIN 25% 25 GM in PREMIX 1 EACH IV SCH (10:27)
[2020-02-21] MEDS: METOPROLOL TARTRATE 5 MG/5 ML VIAL IV SCH (10:27)
[2020-02-21] MEDS: DEXTROSE 5% NACL 0.45% 1,000 ML IV SCH (10:27)
[2020-02-21] MEDS: LINEZOLID 600 MG TABLET PO SCH ×2 (13:29→22:23)
[2020-02-21] MEDS: DEXTROSE 5% 1,000 ML IV SCH (15:31)
[2020-02-21] MEDS: SODIUM HYPOCHLORITE 0.25% IRRIG 473 ML BOTTLE TOP SCH (17:00)
[2020-02-22] MEDS ORDERED: SODIUM CHLORIDE 0.9% 1,000 ML IV PRN (00:16)
[2020-02-22] MEDS: FLUCONAZOLE INJ 100 MG in IV BAG 1 EACH IV SCH (00:27)
[2020-02-22] MEDS: DEXTROSE 5% 1,000 ML IV SCH ×3 (02:47→23:38)
[2020-02-22] MEDS: methylPREDNISolone SOD SUC 40 MG/1 ML VIAL IV SCH ×3 (05:41→21:31)
[2020-02-22 06:20] LABS: INR 3.8; PT Patient Result 38.3 SECS (9.8-11.9)
[2020-02-22 06:21] LABS: Basophils % 0.2 % (0.0-0.8); Hematocrit 24.3 VOL% (35.7-47.0); Hemoglobin 7.8 GM/DL (12.0-16.0); Immature Granulocytes % 5.8 %; Immature Granulocytes Absolute 0.58 #; Lymphocytes # 0.5 10*3/uL (1.4-4.0); Lymphocytes % 5.1 % (21.3-54.2); Mean Corpuscular HGB Conc 32.1 GM/DL (32-36); Mean Platelet Volume 11.4 FL (9.6-12.0); Monocytes % 4.4 % (1.7-12.7); NRBC # 0.12 10*3/uL; Neutrophils % 84.5 % (38.7-73.9); Platelet Count 79 T/CUMM (130-400); Red Blood Count 2.67 MC/CUMM (3.8-5.5); Red Cell Distribution Width 16.4 % (9.3-17.3)
[2020-02-22 06:31] LABS: Albumin 2.7 G/DL (3.4-5.0); Bilirubin,Total 0.9 MG/DL (0.2-1.0); Calcium 7.7 MG/DL (8.5-10.1); Osmolality,Calculated 312.8 MOS/KG (273-304); Potassium 3.8 MMOL/L (3.5-5.1); Total Protein 6.4 G/DL (6.4-8.3)
[2020-02-22 07:41] LABS: Band Neutrophils 2 % (0-10); Hypochromasia 2+; Lymphocytes 6 % (20-55); Metamyelocytes 1 %; Myelocytes 1 %; Nucleated Red Blood Cells 2 (0-5); Segmented Neutrophils 89 % (50-85); Total Cells Counted 100
[2020-02-22 07:42] LABS: Microcytosis 1+; Ovalocytes Slight
[2020-02-22 07:43] LABS: Platelet Estimate Decreased; Polychromasia Slight
[2020-02-22] MEDS ORDERED: SULFAMETHOX/TRIMETHOPRIM 400-80 MG TABLET PO SCH (09:00)
[2020-02-22] MEDS: METOPROLOL TARTRATE 50 MG TABLET PO SCH ×2 (09:49→21:31)
[2020-02-22] MEDS: PANTOPRAZOLE 40 MG TABLET PO SCH (09:49)
[2020-02-22] MEDS: DOCUSATE SODIUM 100 MG CAPSULE PO SCH ×2 (09:49→21:31)
[2020-02-22] MEDS: LATANOPROST 0.005% OPH SOLN 2.5 ML BOTTLE BOTH EYES SCH (09:49)
[2020-02-22] MEDS: SODIUM HYPOCHLORITE 0.25% IRRIG 473 ML BOTTLE TOP SCH (09:49)
[2020-02-22] MEDS: LINEZOLID 600 MG TABLET PO SCH ×2 (10:56→23:56)
[2020-02-22] MEDS: ZALEPLON 5 MG CAPSULE PO PRN (23:56)
[2020-02-22] MEDS: DEXTROSE 5% NACL 0.45% 1,000 ML IV SCH (23:56)
[2020-02-22] MEDS: hydrALAZINE 25 MG TABLET PO SCH (23:56)
[2020-02-23] MEDS: FLUCONAZOLE INJ 100 MG in IV BAG 1 EACH IV SCH ×2 (02:11→23:05)
[2020-02-23] MEDS: methylPREDNISolone SOD SUC 40 MG/1 ML VIAL IV SCH ×3 (05:55→23:02)
[2020-02-23 06:35] LABS: Basophils % 0.2 % (0.0-0.8); Hematocrit 29.1 VOL% (35.7-47.0); Hemoglobin 9.5 GM/DL (12.0-16.0); Immature Granulocytes % 4.1 %; Immature Granulocytes Absolute 0.46 #; Lymphocytes # 0.4 10*3/uL (1.4-4.0); Lymphocytes % 3.7 % (21.3-54.2); Mean Corpuscular HGB Conc 32.6 GM/DL (32-36); Mean Corpuscular Volume 87.9 FL (87-102); Monocytes % 4.6 % (1.7-12.7); NRBC # 0.24 10*3/uL; Neutrophils % 87.4 % (38.7-73.9); Platelet Count 75 T/CUMM (130-400); Red Blood Count 3.31 MC/CUMM (3.8-5.5); Red Cell Distribution Width 16.4 % (9.3-17.3); White Blood Count 11.2 T/CUMM (4-12)
[2020-02-23 07:03] LABS: Albumin 2.8 G/DL (3.4-5.0); Bilirubin,Total 0.9 MG/DL (0.2-1.0); Calcium 7.9 MG/DL (8.5-10.1); Osmolality,Calculated 307.3 MOS/KG (273-304); PT Patient Result 30.3 SECS (9.8-11.9); Potassium 3.7 MMOL/L (3.5-5.1); Total Protein 6.7 G/DL (6.4-8.3)
[2020-02-23 08:02] LABS: Anisocytosis 1+; Band Neutrophils 6 % (0-10); Lymphocytes 4 % (20-55); Nucleated Red Blood Cells 3 (0-5); Platelet Estimate Decreased; Segmented Neutrophils 85 % (50-85); Total Cells Counted 100
[2020-02-23 08:03] LABS: Poikilocytosis Slight
[2020-02-23] MEDS: PANTOPRAZOLE 40 MG TABLET PO SCH (08:08)
[2020-02-23] MEDS: hydrALAZINE 25 MG TABLET PO SCH ×2 (08:08→22:47)
[2020-02-23] MEDS: LINEZOLID 600 MG TABLET PO SCH ×2 (08:08→22:48)
[2020-02-23] MEDS: SODIUM HYPOCHLORITE 0.25% IRRIG 473 ML BOTTLE TOP SCH (08:08)
[2020-02-23] MEDS: DOCUSATE SODIUM 100 MG CAPSULE PO SCH ×2 (08:08→22:47)
[2020-02-23] MEDS: METOPROLOL TARTRATE 50 MG TABLET PO SCH ×2 (08:08→22:47)
[2020-02-23] MEDS: LATANOPROST 0.005% OPH SOLN 2.5 ML BOTTLE BOTH EYES SCH (09:54)
[2020-02-23] MEDS: DEXTROSE 5% NACL 0.45% 1,000 ML IV SCH (13:58)
[2020-02-23] MEDS: ZALEPLON 5 MG CAPSULE PO PRN (22:48)
[2020-02-24] MEDS: methylPREDNISolone SOD SUC 40 MG/1 ML VIAL IV SCH ×3 (05:51→21:54)
[2020-02-24 06:46] LABS: PT Patient Result 30.8 SECS (9.8-11.9)
[2020-02-24 06:56] LABS: Basophils % 0.4 % (0.0-0.8); Hematocrit 31.8 VOL% (35.7-47.0); Hemoglobin 10.1 GM/DL (12.0-16.0); Immature Granulocytes % 3.6 %; Immature Granulocytes Absolute 0.39 #; Lymphocytes # 0.3 10*3/uL (1.4-4.0); Lymphocytes % 3.1 % (21.3-54.2); Mean Corpuscular HGB Conc 31.8 GM/DL (32-36); Mean Corpuscular Volume 90.3 FL (87-102); Monocytes % 4.4 % (1.7-12.7); NRBC # 0.34 10*3/uL; Neutrophils % 88.5 % (38.7-73.9); Platelet Count 75 T/CUMM (130-400); Red Blood Count 3.52 MC/CUMM (3.8-5.5); Red Cell Distribution Width 16.8 % (9.3-17.3); White Blood Count 10.9 T/CUMM (4-12)
[2020-02-24 07:24] LABS: Albumin 2.6 G/DL (3.4-5.0); Calcium 7.9 MG/DL (8.5-10.1); Total Protein 6.5 G/DL (6.4-8.3)
[2020-02-24 08:13] LABS: Anisocytosis 2+; Band Neutrophils 3 % (0-10); Lymphocytes 6 % (20-55); Macrocytosis 1+; Metamyelocytes 1 %; Myelocytes 1 %; Nucleated Red Blood Cells 6 (0-5); Platelet Estimate Decreased; Polychromasia Slight; Segmented Neutrophils 85 % (50-85); Total Cells Counted 100
[2020-02-24] MEDS: METOPROLOL TARTRATE 50 MG TABLET PO SCH ×2 (09:31→21:54)
[2020-02-24] MEDS: DEXTROSE 5% NACL 0.45% 1,000 ML IV SCH (09:31)
[2020-02-24] MEDS: PANTOPRAZOLE 40 MG TABLET PO SCH (09:31)
[2020-02-24] MEDS: hydrALAZINE 25 MG TABLET PO SCH ×2 (09:31→21:49)
[2020-02-24] MEDS: DOCUSATE SODIUM 100 MG CAPSULE PO SCH ×2 (09:31→21:50)
[2020-02-24] MEDS: LATANOPROST 0.005% OPH SOLN 2.5 ML BOTTLE BOTH EYES SCH (09:32)
[2020-02-24] MEDS: LINEZOLID 600 MG TABLET PO SCH ×2 (09:32→21:50)
[2020-02-24] MEDS: SODIUM HYPOCHLORITE 0.25% IRRIG 473 ML BOTTLE TOP SCH (09:32)
[2020-02-24] MEDS: ZALEPLON 5 MG CAPSULE PO PRN (21:50)
[2020-02-25] MEDS: DEXTROSE 5% NACL 0.45% 1,000 ML IV SCH ×3 (00:40→12:50)
[2020-02-25 06:09] LABS: Basophils % 0.2 % (0.0-0.8); Hematocrit 29.5 VOL% (35.7-47.0); Hemoglobin 9.7 GM/DL (12.0-16.0); Immature Granulocytes % 1.7 %; Immature Granulocytes Absolute 0.25 #; Lymphocytes # 0.4 10*3/uL (1.4-4.0); Lymphocytes % 2.4 % (21.3-54.2); Mean Corpuscular HGB Conc 32.9 GM/DL (32-36); Mean Corpuscular Volume 88.3 FL (87-102); Monocytes % 5.2 % (1.7-12.7); NRBC # 0.19 10*3/uL; Neutrophils % 90.5 % (38.7-73.9); Platelet Count 92 T/CUMM (130-400); Red Blood Count 3.34 MC/CUMM (3.8-5.5); White Blood Count 14.3 T/CUMM (4-12)
[2020-02-25] MEDS: methylPREDNISolone SOD SUC 40 MG/1 ML VIAL IV SCH ×3 (06:13→21:40)
[2020-02-25 06:15] LABS: INR 2.8; PT Patient Result 28.2 SECS (9.8-11.9)
[2020-02-25 06:36] LABS: Albumin 2.5 G/DL (3.4-5.0); Bilirubin,Total 0.8 MG/DL (0.2-1.0); Calcium 8.1 MG/DL (8.5-10.1); Osmolality,Calculated 312.7 MOS/KG (273-304); Potassium 3.8 MMOL/L (3.5-5.1); Total Protein 6.4 G/DL (6.4-8.3)
[2020-02-25 06:41] LABS: Hypochromasia 1+; Lymphocytes 4 % (20-55); Segmented Neutrophils 90 % (50-85); Total Cells Counted 100
[2020-02-25 06:42] LABS: Anisocytosis 1+; Target Cells Slight
[2020-02-25 06:43] LABS: Platelet Estimate Decreased; Polychromasia Slight
[2020-02-25] MEDS: hydrALAZINE 25 MG TABLET PO SCH ×2 (09:27→21:45)
[2020-02-25] MEDS: DOCUSATE SODIUM 100 MG CAPSULE PO SCH ×2 (09:27→21:42)
[2020-02-25] MEDS: METOPROLOL TARTRATE 50 MG TABLET PO SCH ×2 (09:27→21:42)
[2020-02-25] MEDS: PANTOPRAZOLE 40 MG TABLET PO SCH (09:27)
[2020-02-25] MEDS: LINEZOLID 600 MG TABLET PO SCH ×2 (09:28→21:41)
[2020-02-25] MEDS: SODIUM HYPOCHLORITE 0.25% IRRIG 473 ML BOTTLE TOP SCH (09:28)
[2020-02-25] MEDS: LATANOPROST 0.005% OPH SOLN 2.5 ML BOTTLE BOTH EYES SCH (09:28)
[2020-02-25] MEDS ORDERED: SODIUM CHLORIDE 0.9% 1,000 ML IV PRN (15:46)
[2020-02-25] MEDS ORDERED: PHYTONADIONE 10 MG/1 ML AMP SUBCUT ONE (16:00)
[2020-02-25] MEDS: ZALEPLON 5 MG CAPSULE PO PRN (21:42)
[2020-02-26 04:40] LABS: Basophils % 0.3 % (0.0-0.8); Hematocrit 30.1 VOL% (35.7-47.0); Hemoglobin 9.5 GM/DL (12.0-16.0); Immature Granulocytes % 1.2 %; Immature Granulocytes Absolute 0.14 #; Lymphocytes # 0.3 10*3/uL (1.4-4.0); Lymphocytes % 2.1 % (21.3-54.2); Mean Corpuscular HGB Conc 31.6 GM/DL (32-36); Mean Corpuscular Volume 91.8 FL (87-102); NRBC # 0.06 10*3/uL; Neutrophils % 92.4 % (38.7-73.9); Platelet Count 86 T/CUMM (130-400); Red Blood Count 3.28 MC/CUMM (3.8-5.5); Red Cell Distribution Width 17.9 % (9.3-17.3); White Blood Count 11.6 T/CUMM (4-12)
[2020-02-26 05:04] LABS: Albumin 2.5 G/DL (3.4-5.0); Bilirubin,Total 0.8 MG/DL (0.2-1.0); Osmolality,Calculated 311.6 MOS/KG (273-304); Potassium 3.9 MMOL/L (3.5-5.1); Total Protein 6.2 G/DL (6.4-8.3)
[2020-02-26 05:07] LABS: Hypochromasia 1+; Lymphocytes 2 % (20-55); Platelet Estimate Decreased; Segmented Neutrophils 92 % (50-85); Total Cells Counted 100
[2020-02-26 05:23] LABS: INR 2.5; PT Patient Result 25.2 SECS (9.8-11.9)
[2020-02-26] MEDS: methylPREDNISolone SOD SUC 40 MG/1 ML VIAL IV SCH ×2 (05:58→13:23)
[2020-02-26] MEDS ORDERED: SODIUM CHLORIDE 0.9% 1,000 ML IV PRN ×2 (06:34→06:40)
[2020-02-26] MEDS: DEXTROSE 5% NACL 0.45% 1,000 ML IV SCH ×3 (07:09→16:08)
[2020-02-26] MEDS ORDERED: propofoL 200 MG/20 ML VIAL IV ONE (09:03)
[2020-02-26] MEDS ORDERED: LIDOCAINE 2% 5 ML VIAL ONE (09:03)
[2020-02-26] MEDS ORDERED: PHYTONADIONE 10 MG/1 ML AMP SUBCUT ONE (10:00)
[2020-02-26] MEDS: LINEZOLID 600 MG TABLET PO SCH ×2 (10:23→21:10)
[2020-02-26] MEDS: SODIUM HYPOCHLORITE 0.25% IRRIG 473 ML BOTTLE TOP SCH (10:24)
[2020-02-26] MEDS: PANTOPRAZOLE 40 MG TABLET PO SCH (10:24)
[2020-02-26] MEDS: METOPROLOL TARTRATE 50 MG TABLET PO SCH ×2 (10:24→21:10)
[2020-02-26] MEDS: LATANOPROST 0.005% OPH SOLN 2.5 ML BOTTLE BOTH EYES SCH (10:24)
[2020-02-26] MEDS: hydrALAZINE 25 MG TABLET PO SCH ×2 (10:24→21:10)
[2020-02-26] MEDS: DOCUSATE SODIUM 100 MG CAPSULE PO SCH ×2 (10:27→21:10)
[2020-02-26] MEDS: ZALEPLON 5 MG CAPSULE PO PRN (21:10)
[2020-02-27] MEDS: methylPREDNISolone SOD SUC 40 MG/1 ML VIAL IV SCH ×2 (01:31→12:24)
[2020-02-27] MEDS: DEXTROSE 5% NACL 0.45% 1,000 ML IV SCH ×2 (03:30→23:30)
[2020-02-27 05:56] LABS: INR 1.3
[2020-02-27 06:02] LABS: Basophils % 0.1 % (0.0-0.8); Hematocrit 27.2 VOL% (35.7-47.0); Hemoglobin 8.3 GM/DL (12.0-16.0); Immature Granulocytes % 1.2 %; Immature Granulocytes Absolute 0.11 #; Lymphocytes # 0.3 10*3/uL (1.4-4.0); Lymphocytes % 3.5 % (21.3-54.2); Mean Corpuscular HGB Conc 30.5 GM/DL (32-36); Mean Corpuscular Volume 93.8 FL (87-102); Monocytes % 6.2 % (1.7-12.7); NRBC # 0.03 10*3/uL; Red Cell Distribution Width 18.2 % (9.3-17.3); White Blood Count 9.5 T/CUMM (4-12)
[2020-02-27 06:03] LABS: Platelet Count 99 T/CUMM (130-400)
[2020-02-27 06:10] LABS: Calcium 8.4 MG/DL (8.5-10.1); Osmolality,Calculated 306.7 MOS/KG (273-304); Potassium 3.8 MMOL/L (3.5-5.1)
[2020-02-27 06:27] LABS: Lymphocytes 4 % (20-55); Platelet Estimate Decreased; Segmented Neutrophils 89 % (50-85); Total Cells Counted 100
[2020-02-27 06:28] LABS: Hypochromasia 1+; Microcytosis 1+
[2020-02-27] MEDS: LATANOPROST 0.005% OPH SOLN 2.5 ML BOTTLE BOTH EYES SCH (09:38)
[2020-02-27] MEDS: PANTOPRAZOLE 40 MG TABLET PO SCH (09:38)
[2020-02-27] MEDS: LINEZOLID 600 MG TABLET PO SCH ×2 (09:38→21:08)
[2020-02-27] MEDS: DOCUSATE SODIUM 100 MG CAPSULE PO SCH ×2 (09:38→21:07)
[2020-02-27] MEDS: SODIUM HYPOCHLORITE 0.25% IRRIG 473 ML BOTTLE TOP SCH (09:38)
[2020-02-27] MEDS: METOPROLOL TARTRATE 50 MG TABLET PO SCH ×2 (09:38→21:08)
[2020-02-27] MEDS: hydrALAZINE 25 MG TABLET PO SCH ×2 (09:38→21:08)
[2020-02-27] MEDS ORDERED: ACYCLOVIR 40 MG/ML 30 ML/BOTTLE PO SCH (21:00)
[2020-02-27] MEDS: ACYCLOVIR 800 MG TABLET PO SCH (21:08)
[2020-02-28] MEDS: methylPREDNISolone SOD SUC 40 MG/1 ML VIAL IV SCH ×2 (00:11→14:27)
[2020-02-28 07:07] LABS: Basophils % 0.2 % (0.0-0.8); Eosinophils % 0.1 % (0.00-10.9); Hematocrit 27.2 VOL% (35.7-47.0); Hemoglobin 8.4 GM/DL (12.0-16.0); Immature Granulocytes % 5.1 %; Immature Granulocytes Absolute 0.47 #; Lymphocytes # 0.5 10*3/uL (1.4-4.0); Lymphocytes % 5.1 % (21.3-54.2); Mean Corpuscular HGB Conc 30.9 GM/DL (32-36); Mean Corpuscular Volume 94.4 FL (87-102); Mean Platelet Volume 11.9 FL (9.6-12.0); Monocytes % 5.8 % (1.7-12.7); NRBC # 0.03 10*3/uL; Neutrophils % 83.7 % (38.7-73.9); Platelet Count 113 T/CUMM (130-400); Red Blood Count 2.88 MC/CUMM (3.8-5.5); Red Cell Distribution Width 18.5 % (9.3-17.3); White Blood Count 9.2 T/CUMM (4-12)
[2020-02-28 07:21] LABS: INR 1.2; PT Patient Result 12.5 SECS (9.8-11.9)
[2020-02-28 07:25] LABS: INR 1.2; PT Patient Result 12.5 SECS (9.8-11.9)
[2020-02-28 07:35] LABS: Band Neutrophils 1 % (0-10); Lymphocytes 7 % (20-55); Segmented Neutrophils 87 % (50-85); Total Cells Counted 100
[2020-02-28 07:36] LABS: Hypochromasia 2+; Microcytosis 1+
[2020-02-28 07:58] LABS: Albumin 2.9 G/DL (3.4-5.0); Bilirubin,Total 0.9 MG/DL (0.2-1.0); Calcium 8.7 MG/DL (8.5-10.1); Osmolality,Calculated 304.8 MOS/KG (273-304); Potassium 4.1 MMOL/L (3.5-5.1); Total Protein 6.8 G/DL (6.4-8.3)
[2020-02-28] MEDS: PANTOPRAZOLE 40 MG TABLET PO SCH (09:09)
[2020-02-28] MEDS: SODIUM HYPOCHLORITE 0.25% IRRIG 473 ML BOTTLE TOP SCH (09:09)
[2020-02-28] MEDS: APIXABAN 2.5 MG TABLET PO SCH ×2 (09:09→21:27)
[2020-02-28] MEDS: ACYCLOVIR 800 MG TABLET PO SCH ×3 (09:09→21:27)
[2020-02-28] MEDS: METOPROLOL TARTRATE 50 MG TABLET PO SCH ×2 (09:09→21:27)
[2020-02-28] MEDS: hydrALAZINE 25 MG TABLET PO SCH ×2 (09:09→21:27)
[2020-02-28] MEDS: LATANOPROST 0.005% OPH SOLN 2.5 ML BOTTLE BOTH EYES SCH (09:09)
[2020-02-28] MEDS: DOCUSATE SODIUM 100 MG CAPSULE PO SCH ×2 (09:09→21:26)
[2020-02-28] MEDS: LINEZOLID 600 MG TABLET PO SCH ×2 (09:09→21:27)
[2020-02-28] MEDS ORDERED: TUBERCULIN SKIN TEST 0.1 ML SYRINGE INTRADERM ONE (11:00)
[2020-02-28] MEDS: DEXTROSE 5% NACL 0.45% 1,000 ML IV SCH (19:50)
[2020-02-29] MEDS: methylPREDNISolone SOD SUC 40 MG/1 ML VIAL IV SCH ×2 (01:37→20:22)
[2020-02-29 05:19] LABS: Basophils % 0.1 % (0.0-0.8); Hematocrit 26.9 VOL% (35.7-47.0); Hemoglobin 8.2 GM/DL (12.0-16.0); Immature Granulocytes % 2.1 %; Immature Granulocytes Absolute 0.19 #; Lymphocytes # 0.6 10*3/uL (1.4-4.0); Lymphocytes % 6.1 % (21.3-54.2); Mean Corpuscular HGB Conc 30.5 GM/DL (32-36); Mean Corpuscular Volume 94.4 FL (87-102); Mean Platelet Volume 11.8 FL (9.6-12.0); Monocytes % 7.2 % (1.7-12.7); NRBC # 0.04 10*3/uL; Neutrophils % 84.5 % (38.7-73.9); Platelet Count 112 T/CUMM (130-400); Red Blood Count 2.85 MC/CUMM (3.8-5.5); Red Cell Distribution Width 18.7 % (9.3-17.3); White Blood Count 9.2 T/CUMM (4-12)
[2020-02-29 05:41] LABS: Calcium 8.7 MG/DL (8.5-10.1); Osmolality,Calculated 308.6 MOS/KG (273-304)
[2020-02-29] MEDS: PANTOPRAZOLE 40 MG TABLET PO SCH (08:48)
[2020-02-29] MEDS: ACYCLOVIR 800 MG TABLET PO SCH ×3 (08:48→20:22)
[2020-02-29] MEDS: APIXABAN 2.5 MG TABLET PO SCH ×2 (08:48→20:22)
[2020-02-29] MEDS: LATANOPROST 0.005% OPH SOLN 2.5 ML BOTTLE BOTH EYES SCH (08:48)
[2020-02-29] MEDS: DOCUSATE SODIUM 100 MG CAPSULE PO SCH ×2 (08:48→20:22)
[2020-02-29] MEDS: LINEZOLID 600 MG TABLET PO SCH ×2 (08:48→20:22)
[2020-02-29] MEDS: SODIUM HYPOCHLORITE 0.25% IRRIG 473 ML BOTTLE TOP SCH (08:48)
[2020-02-29] MEDS: METOPROLOL TARTRATE 50 MG TABLET PO SCH ×2 (08:48→20:23)
[2020-02-29] MEDS: DEXTROSE 5% NACL 0.45% 1,000 ML IV SCH (16:27)
[2020-02-29] MEDS: ZALEPLON 5 MG CAPSULE PO PRN (20:22)
[2020-03-01] MEDS: LATANOPROST 0.005% OPH SOLN 2.5 ML BOTTLE BOTH EYES SCH (09:10)
[2020-03-01] MEDS: methylPREDNISolone SOD SUC 40 MG/1 ML VIAL IV SCH ×2 (09:10→20:28)
[2020-03-01] MEDS: LINEZOLID 600 MG TABLET PO SCH ×2 (09:10→20:27)
[2020-03-01] MEDS: METOPROLOL TARTRATE 50 MG TABLET PO SCH ×2 (09:10→20:28)
[2020-03-01] MEDS: DOCUSATE SODIUM 100 MG CAPSULE PO SCH ×2 (09:10→20:28)
[2020-03-01] MEDS: PANTOPRAZOLE 40 MG TABLET PO SCH (09:10)
[2020-03-01] MEDS: APIXABAN 2.5 MG TABLET PO SCH ×2 (09:10→20:30)
[2020-03-01] MEDS: SODIUM HYPOCHLORITE 0.25% IRRIG 473 ML BOTTLE TOP SCH (09:10)
[2020-03-01] MEDS: ACYCLOVIR 800 MG TABLET PO SCH ×3 (09:10→20:28)
[2020-03-01] MEDS: DEXTROSE 5% NACL 0.45% 1,000 ML IV SCH (10:23)
[2020-03-02] MEDS: DEXTROSE 5% NACL 0.45% 1,000 ML IV SCH (08:43)
[2020-03-02] MEDS: ACYCLOVIR 800 MG TABLET PO SCH ×3 (08:44→21:36)
[2020-03-02] MEDS: METOPROLOL TARTRATE 50 MG TABLET PO SCH ×2 (08:44→21:36)
[2020-03-02] MEDS: DOCUSATE SODIUM 100 MG CAPSULE PO SCH ×2 (08:44→21:36)
[2020-03-02] MEDS: PANTOPRAZOLE 40 MG TABLET PO SCH (08:44)
[2020-03-02] MEDS: methylPREDNISolone SOD SUC 40 MG/1 ML VIAL IV SCH ×2 (08:44→21:36)
[2020-03-02] MEDS: SODIUM HYPOCHLORITE 0.25% IRRIG 473 ML BOTTLE TOP SCH (08:44)
[2020-03-02] MEDS: LATANOPROST 0.005% OPH SOLN 2.5 ML BOTTLE BOTH EYES SCH (08:44)
[2020-03-02] MEDS: APIXABAN 2.5 MG TABLET PO SCH ×2 (08:44→21:36)
[2020-03-03] MEDS: DEXTROSE 5% NACL 0.45% 1,000 ML IV SCH ×2 (06:09→22:58)
[2020-03-03] MEDS: methylPREDNISolone SOD SUC 40 MG/1 ML VIAL IV SCH ×2 (08:53→20:00)
[2020-03-03] MEDS: APIXABAN 2.5 MG TABLET PO SCH ×2 (08:54→20:00)
[2020-03-03] MEDS: METOPROLOL TARTRATE 50 MG TABLET PO SCH ×2 (08:54→20:00)
[2020-03-03] MEDS: ACYCLOVIR 800 MG TABLET PO SCH ×3 (08:54→20:00)
[2020-03-03] MEDS: LATANOPROST 0.005% OPH SOLN 2.5 ML BOTTLE BOTH EYES SCH (09:53)
[2020-03-03] MEDS: DOCUSATE SODIUM 100 MG/10 ML UDCUP PO SCH ×2 (09:53→20:00)
[2020-03-03] MEDS: SODIUM HYPOCHLORITE 0.25% IRRIG 473 ML BOTTLE TOP SCH (09:53)
[2020-03-04 05:27] LABS: Basophils % 0.2 % (0.0-0.8); Hematocrit 28.5 VOL% (35.7-47.0); Hemoglobin 8.6 GM/DL (12.0-16.0); Immature Granulocytes % 0.8 %; Immature Granulocytes Absolute 0.05 #; Lymphocytes # 0.5 10*3/uL (1.4-4.0); Mean Corpuscular HGB Conc 30.2 GM/DL (32-36); Mean Corpuscular Volume 96.9 FL (87-102); Mean Platelet Volume 12.8 FL (9.6-12.0); Monocytes % 8.3 % (1.7-12.7); NRBC # 0.07 10*3/uL; Neutrophils % 82.7 % (38.7-73.9); Platelet Count 108 T/CUMM (130-400); Red Blood Count 2.94 MC/CUMM (3.8-5.5); Red Cell Distribution Width 18.9 % (9.3-17.3); White Blood Count 6.4 T/CUMM (4-12)
[2020-03-04 05:48] LABS: Calcium 8.8 MG/DL (8.5-10.1); Osmolality,Calculated 298.8 MOS/KG (273-304)
[2020-03-04] MEDS: OMEPRAZOLE ODT 20 MG TABLET PER TUBE SCH (06:12)
[2020-03-04] MEDS: APIXABAN 2.5 MG TABLET PO SCH ×2 (09:44→21:09)
[2020-03-04] MEDS: methylPREDNISolone SOD SUC 40 MG/1 ML VIAL IV SCH ×2 (09:45→21:09)
[2020-03-04] MEDS: ACYCLOVIR 800 MG TABLET PO SCH ×3 (09:45→21:10)
[2020-03-04] MEDS: DOCUSATE SODIUM 100 MG/10 ML UDCUP PO SCH ×2 (09:45→21:09)
[2020-03-04] MEDS: METOPROLOL TARTRATE 50 MG TABLET PO SCH ×2 (09:45→21:09)
[2020-03-04] MEDS: LATANOPROST 0.005% OPH SOLN 2.5 ML BOTTLE BOTH EYES SCH (09:46)
[2020-03-04] MEDS: SODIUM HYPOCHLORITE 0.25% IRRIG 473 ML BOTTLE TOP SCH (10:30)
[2020-03-04] MEDS: DEXTROSE 5% NACL 0.45% 1,000 ML IV SCH (18:20)
[2020-03-05] MEDS: OMEPRAZOLE ODT 20 MG TABLET PER TUBE SCH (06:01)
[2020-03-05 06:25] LABS: Calcium 8.9 MG/DL (8.5-10.1); Potassium 4.1 MMOL/L (3.5-5.1)
[2020-03-05] MEDS: METOPROLOL TARTRATE 50 MG TABLET PO SCH ×2 (10:21→20:38)
[2020-03-05] MEDS: SODIUM HYPOCHLORITE 0.25% IRRIG 473 ML BOTTLE TOP SCH (10:21)
[2020-03-05] MEDS: DOCUSATE SODIUM 100 MG/10 ML UDCUP PO SCH ×2 (10:21→20:38)
[2020-03-05] MEDS: APIXABAN 2.5 MG TABLET PO SCH ×2 (10:21→20:38)
[2020-03-05] MEDS: LATANOPROST 0.005% OPH SOLN 2.5 ML BOTTLE BOTH EYES SCH (10:22)
[2020-03-05] MEDS: methylPREDNISolone SOD SUC 40 MG/1 ML VIAL IV SCH ×2 (10:22→20:38)
[2020-03-05] MEDS: ACYCLOVIR 800 MG TABLET PO SCH ×3 (10:22→20:38)
[2020-03-06] MEDS: OMEPRAZOLE ODT 20 MG TABLET PER TUBE SCH (05:50)
[2020-03-06 05:53] LABS: Calcium 9.1 MG/DL (8.5-10.1); Osmolality,Calculated 299.8 MOS/KG (273-304); Potassium 4.4 MMOL/L (3.5-5.1)
[2020-03-06] MEDS: DOCUSATE SODIUM 100 MG/10 ML UDCUP PO SCH (08:56)
[2020-03-06] MEDS: APIXABAN 2.5 MG TABLET PO SCH (08:56)
[2020-03-06] MEDS: methylPREDNISolone SOD SUC 40 MG/1 ML VIAL IV SCH (08:57)
[2020-03-06] MEDS: SODIUM HYPOCHLORITE 0.25% IRRIG 473 ML BOTTLE TOP SCH (08:57)
[2020-03-06] MEDS: ACYCLOVIR 800 MG TABLET PO SCH (08:57)
[2020-03-06] MEDS: METOPROLOL TARTRATE 50 MG TABLET PO SCH (08:57)
[2020-03-06] MEDS: LATANOPROST 0.005% OPH SOLN 2.5 ML BOTTLE BOTH EYES SCH (08:58)
[2020-03-06 11:43] VITALS: BP 135/67
== END 2020-03-06 13:49 | DRG 177 ==
LOC: N.ED 10:38 → N.EDINP 13:11 → N.2E 13:40 → N.5E 02-22 14:38 → UNDODISIN 03-06 12:59
PROVIDERS: ADMIT Internal Medicine; ATTEND Internal Medicine

== ENCOUNTER 2020-06-29 09:46 | Inpatient (IN) ==
[2020-06-29 10:49] LABS: Basophils % 0.5 % (0.0-0.8); Eosinophils # 0.1 10*3/uL (0.0-0.87); Eosinophils % 2.6 % (0.00-10.9); Hematocrit 22.7 VOL% (35.7-47.0); Hemoglobin 7.6 GM/DL (12.0-16.0); Immature Granulocytes % 0.8 %; Immature Granulocytes Absolute 0.03 #; Lymphocytes # 1.1 10*3/uL (1.4-4.0); Lymphocytes % 29.1 % (21.3-54.2); Mean Corpuscular HGB Conc 33.5 GM/DL (32-36); Mean Corpuscular Volume 81.4 FL (87-102); Mean Platelet Volume 11.7 FL (9.6-12.0); Monocytes % 7.8 % (1.7-12.7); Neutrophils % 59.2 % (38.7-73.9); Platelet Count 256 T/CUMM (130-400); Red Blood Count 2.79 MC/CUMM (3.8-5.5); Red Cell Distribution Width 21.4 % (9.3-17.3); White Blood Count 3.9 T/CUMM (4-12)
[2020-06-29 11:03] LABS: Albumin 1.6 G/DL (3.4-5.0); Bilirubin,Total 0.8 MG/DL (0.2-1.0); Calcium 7.9 MG/DL (8.5-10.1); Osmolality,Calculated 279.7 MOS/KG (273-304); Potassium 3.6 MMOL/L (3.5-5.1); Total Protein 6.4 G/DL (6.4-8.2)
[2020-06-29 11:06] LABS: Amorphous Crystals,Urine Occasional /HPF (Few); Bacteria,Urine Occasional /HPF (Few); Bilirubin,Urine Negative (Negative); Blood, Urine Small mg/dL (Negative); Glucose,Urine (UA) Negative (Negative); Hyaline Casts,Urine 17 /LPF (0-3); Ketones,Urine Negative (Negative); Mucus,Urine Occasional /LPF (Occasional); Nitrite,Urine Negative (Negative); Protein,Urine 30 MG/DL; RBC,Urine 9 /HPF (0-4); Squamous Epithelial Cell,Urine Occasional /HPF (0-10); Urine Appearance CLEAR (Clear); Urine Color Yellow (Yellow); Urine Specific Gravity 1.013 (1.001-1.035)
[2020-06-29] MEDS ORDERED: SODIUM CHLORIDE 0.9% 1,000 ML IV PRN (12:42)
[2020-06-29] MEDS ORDERED: DEXTROSE 50% 25 GM/50 ML VIAL IV STA (13:12)
[2020-06-29] MEDS ORDERED: DEXTROSE 50% 25 GM/50 ML SYRINGE IV ONE (13:12)
[2020-06-29] MEDS ORDERED: GLUCAGON 1 MG VIAL IM PRN (13:13)
[2020-06-29] MEDS: DEXTROSE 5% NACL 0.45% 1,000 ML IV SCH (13:34)
[2020-06-29] MEDS ORDERED: LEVOFLOXACIN INJ 500 MG/100 ML PREMIX IV ONE (18:30)
[2020-06-29] MEDS: BETAMETHASONE VALERATE TOP SCH (20:09)
[2020-06-29] MEDS: DOCUSATE SODIUM 100 MG CAPSULE PO SCH (20:15)
[2020-06-29] MEDS: traZODone 50 MG TABLET PO SCH (20:15)
[2020-06-29] MEDS: NYSTATIN 500,000 UNIT/5 ML UDCUP SWISH/SWAL SCH (20:16)
[2020-06-29] MEDS: FERROUS SULFATE 325 MG TABLET PO SCH (20:17)
[2020-06-29] MEDS: APIXABAN 2.5 MG TABLET PO SCH (20:17)
[2020-06-29] MEDS: METOPROLOL TARTRATE 50 MG TABLET PO SCH (20:24)
[2020-06-29] MEDS ORDERED: BETAMETHASONE VALERATE 0.1% CREAM 15 GM TUBE TOP SCH (21:00)
[2020-06-29] MEDS: traMADol 50 MG TABLET PO PRN (22:56)
[2020-06-30] MEDS: DEXTROSE 5% NACL 0.45% 1,000 ML IV SCH ×2 (02:54→15:40)
[2020-06-30 06:42] LABS: Basophils % 0.5 % (0.0-0.8); Eosinophils # 0.2 10*3/uL (0.0-0.87); Eosinophils % 5.6 % (0.00-10.9); Hematocrit 21.9 VOL% (35.7-47.0); Hemoglobin 7.5 GM/DL (12.0-16.0); Immature Granulocytes % 0.8 %; Immature Granulocytes Absolute 0.03 #; Lymphocytes # 1.3 10*3/uL (1.4-4.0); Lymphocytes % 33.2 % (21.3-54.2); Mean Corpuscular HGB Conc 34.2 GM/DL (32-36); Mean Corpuscular Volume 81.4 FL (87-102); Mean Platelet Volume 11.4 FL (9.6-12.0); NRBC # 0.02 10*3/uL; Neutrophils % 45.9 % (38.7-73.9); Platelet Count 244 T/CUMM (130-400); Red Blood Count 2.69 MC/CUMM (3.8-5.5); Red Cell Distribution Width 21.8 % (9.3-17.3); White Blood Count 3.9 T/CUMM (4-12)
[2020-06-30 07:12] LABS: Calcium 7.9 MG/DL (8.5-10.1); Osmolality,Calculated 275.7 MOS/KG (273-304); Potassium 3.4 MMOL/L (3.5-5.1)
[2020-06-30] MEDS ORDERED: PANTOPRAZOLE 40 MG TABLET PO SCH (09:00)
[2020-06-30] MEDS ORDERED: POTASSIUM CHLORIDE 10 MEQ TABLET PO SCH (09:00)
[2020-06-30] MEDS: MULTIVITAMIN (CENTRUM) TABLET PO SCH (09:24)
[2020-06-30] MEDS: MAGNESIUM CHLORIDE 64 MG TABLET PO SCH (09:24)
[2020-06-30] MEDS: METOPROLOL TARTRATE 50 MG TABLET PO SCH ×2 (09:24→23:06)
[2020-06-30] MEDS: FERROUS SULFATE 325 MG TABLET PO SCH ×2 (09:24→23:04)
[2020-06-30] MEDS: FLUCONAZOLE 100 MG TABLET PO SCH (09:24)
[2020-06-30] MEDS: FUROSEMIDE 40 MG TABLET PO SCH (09:24)
[2020-06-30] MEDS: DOCUSATE SODIUM 100 MG CAPSULE PO SCH ×2 (09:25→23:04)
[2020-06-30] MEDS: CARBOXYMETHYLCELLULOSE 1% OPH SOLN BOTH EYES PRN (09:25)
[2020-06-30] MEDS: APIXABAN 2.5 MG TABLET PO SCH (09:25)
[2020-06-30] MEDS: NYSTATIN 500,000 UNIT/5 ML UDCUP SWISH/SWAL SCH ×4 (09:25→23:04)
[2020-06-30] MEDS: LATANOPROST 0.005% OPH SOLN 2.5 ML BOTTLE BOTH EYES SCH (09:27)
[2020-06-30] MEDS ORDERED: FUROSEMIDE 20 MG/2 ML VIAL IV ONE ×2 (10:53→17:06)
[2020-06-30] MEDS ORDERED: SODIUM CHLORIDE 0.9% 1,000 ML IV PRN (10:55)
[2020-06-30] MEDS ORDERED: FUROSEMIDE 20 MG/2 ML VIAL IV PRN (10:55)
[2020-06-30] MEDS: BETAMETHASONE VALERATE TOP SCH ×2 (11:44→23:05)
[2020-06-30 22:27] LABS: Hematocrit 33.6 VOL% (35.7-47.0); Hemoglobin 10.8 GM/DL (12.0-16.0)
[2020-06-30] MEDS: PANTOPRAZOLE 40 MG VIAL IV SCH (23:00)
[2020-06-30] MEDS: POLYETHYLENE GLYCOL POWDER 17 GM PACK PO SCH (23:04)
[2020-06-30] MEDS: traZODone 50 MG TABLET PO SCH (23:05)
[2020-06-30] MEDS: LEVOFLOXACIN INJ 250 MG/50 ML PREMIX IV SCH (23:32)
[2020-07-01] MEDS: DEXTROSE 5% NACL 0.45% 1,000 ML IV SCH ×3 (05:42→05:47)
[2020-07-01 08:03] LABS: Basophils % 0.2 % (0.0-0.8); Eosinophils # 0.2 10*3/uL (0.0-0.87); Eosinophils % 3.7 % (0.00-10.9); Hematocrit 30.8 VOL% (35.7-47.0); Hemoglobin 10.3 GM/DL (12.0-16.0); Immature Granulocytes % 1.1 %; Immature Granulocytes Absolute 0.05 #; Lymphocytes # 1.4 10*3/uL (1.4-4.0); Lymphocytes % 30.2 % (21.3-54.2); Mean Corpuscular HGB Conc 33.4 GM/DL (32-36); Mean Corpuscular Volume 81.1 FL (87-102); Monocytes % 11.5 % (1.7-12.7); Neutrophils % 53.3 % (38.7-73.9); Platelet Count 229 T/CUMM (130-400); White Blood Count 4.5 T/CUMM (4-12)
[2020-07-01 08:06] LABS: INR 1.3; PT Patient Result 13.9 SECS (10.5-12.0)
[2020-07-01] MEDS: METOPROLOL TARTRATE 50 MG TABLET PO SCH ×2 (08:15→21:57)
[2020-07-01] MEDS: PANTOPRAZOLE 40 MG VIAL IV SCH ×2 (08:15→21:54)
[2020-07-01] MEDS: LACTATED RINGERS 1,000 ML IV SCH (08:16)
[2020-07-01 08:32] LABS: Calcium 7.9 MG/DL (8.5-10.1); Potassium 3.6 MMOL/L (3.5-5.1)
[2020-07-01 08:38] LABS: Calcium 7.9 MG/DL (8.5-10.1); Osmolality,Calculated 270.1 MOS/KG (273-304); Potassium 3.6 MMOL/L (3.5-5.1)
[2020-07-01] MEDS ORDERED: LIDOCAINE 2% 5 ML VIAL ONE (09:07)
[2020-07-01] MEDS ORDERED: ETOMIDATE 20 MG/10 ML VIAL IV ONE (09:07)
[2020-07-01] MEDS: MAGNESIUM CHLORIDE 64 MG TABLET PO SCH (10:41)
[2020-07-01] MEDS: FERROUS SULFATE 325 MG TABLET PO SCH ×2 (10:41→21:58)
[2020-07-01] MEDS: CARBOXYMETHYLCELLULOSE 1% OPH SOLN BOTH EYES PRN (10:42)
[2020-07-01] MEDS: DOCUSATE SODIUM 100 MG CAPSULE PO SCH ×2 (10:42→21:57)
[2020-07-01] MEDS: FLUCONAZOLE 100 MG TABLET PO SCH (10:42)
[2020-07-01] MEDS: FUROSEMIDE 40 MG TABLET PO SCH (10:42)
[2020-07-01] MEDS: MULTIVITAMIN (CENTRUM) TABLET PO SCH (10:42)
[2020-07-01] MEDS: NYSTATIN 500,000 UNIT/5 ML UDCUP SWISH/SWAL SCH ×4 (10:42→21:58)
[2020-07-01] MEDS: POTASSIUM CHLORIDE 20 MEQ TABLET PO SCH (10:42)
[2020-07-01] MEDS: POLYETHYLENE GLYCOL POWDER 17 GM PACK PO SCH ×3 (10:43→22:00)
[2020-07-01] MEDS: LATANOPROST 0.005% OPH SOLN 2.5 ML BOTTLE BOTH EYES SCH (10:47)
[2020-07-01] MEDS: BETAMETHASONE VALERATE TOP SCH ×2 (11:15→21:56)
[2020-07-01] MEDS: LEVOFLOXACIN INJ 250 MG/50 ML PREMIX IV SCH (21:55)
[2020-07-01] MEDS: traZODone 50 MG TABLET PO SCH (21:57)
[2020-07-02] MEDS: DEXTROSE 5% NACL 0.45% 1,000 ML IV SCH ×3 (01:00→18:35)
[2020-07-02 05:52] LABS: Calcium 8.1 MG/DL (8.5-10.1); Potassium 3.5 MMOL/L (3.5-5.1)
[2020-07-02] MEDS: CARBOXYMETHYLCELLULOSE 1% OPH SOLN BOTH EYES PRN (09:00)
[2020-07-02] MEDS: FLUCONAZOLE 100 MG TABLET PO SCH ×2 (09:01→09:35)
[2020-07-02] MEDS: MULTIVITAMIN (CENTRUM) TABLET PO SCH ×2 (09:01→09:34)
[2020-07-02] MEDS: MAGNESIUM CHLORIDE 64 MG TABLET PO SCH ×2 (09:01→09:35)
[2020-07-02] MEDS: POTASSIUM CHLORIDE 20 MEQ TABLET PO SCH (09:01)
[2020-07-02] MEDS: FERROUS SULFATE 325 MG TABLET PO SCH ×3 (09:01→22:04)
[2020-07-02] MEDS: DOCUSATE SODIUM 100 MG CAPSULE PO SCH ×3 (09:01→22:03)
[2020-07-02] MEDS: FUROSEMIDE 40 MG TABLET PO SCH ×2 (09:01→09:35)
[2020-07-02] MEDS: NYSTATIN 500,000 UNIT/5 ML UDCUP SWISH/SWAL SCH ×5 (09:02→22:05)
[2020-07-02] MEDS: PANTOPRAZOLE 40 MG VIAL IV SCH (09:02)
[2020-07-02] MEDS: METOPROLOL TARTRATE 50 MG TABLET PO SCH (09:28)
[2020-07-02] MEDS: BETAMETHASONE VALERATE TOP SCH ×2 (09:33→22:06)
[2020-07-02] MEDS: POLYETHYLENE GLYCOL POWDER 17 GM PACK PO SCH ×3 (09:33→22:04)
[2020-07-02] MEDS: LATANOPROST 0.005% OPH SOLN 2.5 ML BOTTLE BOTH EYES SCH (09:33)
[2020-07-02] MEDS: LACTATED RINGERS 1,000 ML IV SCH (15:35)
[2020-07-02] MEDS: LEVOFLOXACIN INJ 250 MG/50 ML PREMIX IV SCH (18:57)
[2020-07-02] MEDS: traZODone 50 MG TABLET PO SCH (22:04)
[2020-07-02] MEDS: METOPROLOL TARTRATE 25 MG TABLET PO SCH (22:04)
[2020-07-02] MEDS: ACYCLOVIR 800 MG TABLET PO SCH (22:05)
[2020-07-03] MEDS: DEXTROSE 5% NACL 0.45% 1,000 ML IV SCH ×4 (04:28→21:09)
[2020-07-03] MEDS: PANTOPRAZOLE 40 MG VIAL IV SCH ×3 (04:29→22:15)
[2020-07-03 05:21] LABS: Basophils % 0.4 % (0.0-0.8); Eosinophils # 0.3 10*3/uL (0.0-0.87); Eosinophils % 4.8 % (0.00-10.9); Hematocrit 28.6 VOL% (35.7-47.0); Hemoglobin 9.4 GM/DL (12.0-16.0); Immature Granulocytes % 0.6 %; Immature Granulocytes Absolute 0.03 #; Lymphocytes # 1.7 10*3/uL (1.4-4.0); Lymphocytes % 32.4 % (21.3-54.2); Mean Corpuscular HGB Conc 32.9 GM/DL (32-36); Mean Corpuscular Volume 80.8 FL (87-102); Mean Platelet Volume 10.3 FL (9.6-12.0); Monocytes % 10.5 % (1.7-12.7); Neutrophils % 51.3 % (38.7-73.9); Platelet Count 210 T/CUMM (130-400); Red Blood Count 3.54 MC/CUMM (3.8-5.5); Red Cell Distribution Width 20.3 % (9.3-17.3); White Blood Count 5.2 T/CUMM (4-12)
[2020-07-03 05:59] LABS: Albumin 1.3 G/DL (3.4-5.0); Bilirubin,Total 0.4 MG/DL (0.2-1.0); Calcium 8.1 MG/DL (8.5-10.1); Potassium 3.4 MMOL/L (3.5-5.1); Total Protein 5.3 G/DL (6.4-8.2)
[2020-07-03] MEDS: METOPROLOL TARTRATE 50 MG TABLET PO SCH (06:10)
[2020-07-03] MEDS: MULTIVITAMIN (CENTRUM) TABLET PO SCH (08:18)
[2020-07-03] MEDS: DOCUSATE SODIUM 100 MG CAPSULE PO SCH ×2 (08:18→22:11)
[2020-07-03] MEDS: APIXABAN 2.5 MG TABLET PO SCH (08:19)
[2020-07-03] MEDS: BETAMETHASONE VALERATE TOP SCH ×2 (08:19→22:12)
[2020-07-03] MEDS: NYSTATIN 500,000 UNIT/5 ML UDCUP SWISH/SWAL SCH ×4 (08:19→22:12)
[2020-07-03] MEDS: POLYETHYLENE GLYCOL POWDER 17 GM PACK PO SCH ×3 (08:19→22:11)
[2020-07-03] MEDS: METOPROLOL TARTRATE 25 MG TABLET PO SCH ×2 (08:19→22:11)
[2020-07-03] MEDS: FERROUS SULFATE 325 MG TABLET PO SCH (08:19)
[2020-07-03] MEDS: FLUCONAZOLE 100 MG TABLET PO SCH (08:19)
[2020-07-03] MEDS: MAGNESIUM CHLORIDE 64 MG TABLET PO SCH (08:19)
[2020-07-03] MEDS: POTASSIUM CHLORIDE 20 MEQ TABLET PO SCH (08:19)
[2020-07-03] MEDS: ACYCLOVIR 800 MG TABLET PO SCH ×2 (08:19→22:12)
[2020-07-03] MEDS: LATANOPROST 0.005% OPH SOLN 2.5 ML BOTTLE BOTH EYES SCH (08:49)
[2020-07-03] MEDS ORDERED: FUROSEMIDE 20 MG TABLET PO SCH (09:00)
[2020-07-03] MEDS: LEVOFLOXACIN INJ 250 MG/50 ML PREMIX IV SCH (21:10)
[2020-07-03] MEDS: FLUCONAZOLE INJ 200 MG/100 ML PREMIX IV SCH (22:09)
[2020-07-03] MEDS: traZODone 50 MG TABLET PO SCH (22:11)
[2020-07-03] MEDS: FERROUS SULFATE 300 MG/5 ML UDCUP PO SCH (22:12)
[2020-07-04] MEDS: DEXTROSE 5% NACL 0.45% 1,000 ML IV SCH ×2 (05:50→12:53)
[2020-07-04] MEDS ORDERED: LACTATED RINGERS 1,000 ML IV SCH (07:00)
[2020-07-04] MEDS ORDERED: ETOMIDATE 20 MG/10 ML VIAL IV ONE (08:38)
[2020-07-04] MEDS ORDERED: LIDOCAINE 2% 5 ML VIAL ONE (08:38)
[2020-07-04] MEDS ORDERED: ALBUTEROL/IPRATROPIUM 3 ML NEB RESP TX ONE (09:21)
[2020-07-04] MEDS: ONDANSETRON 4 MG/2 ML VIAL IV PRN ×2 (09:31→20:35)
[2020-07-04] MEDS: DOCUSATE SODIUM 100 MG CAPSULE PO SCH ×2 (10:26→20:24)
[2020-07-04] MEDS: BETAMETHASONE VALERATE TOP SCH ×2 (10:27→20:32)
[2020-07-04] MEDS: NYSTATIN 500,000 UNIT/5 ML UDCUP SWISH/SWAL SCH ×4 (10:27→20:30)
[2020-07-04] MEDS: POLYETHYLENE GLYCOL POWDER 17 GM PACK PO SCH ×3 (10:27→20:25)
[2020-07-04] MEDS: PANTOPRAZOLE 40 MG VIAL IV SCH ×2 (10:34→21:47)
[2020-07-04] MEDS: METOPROLOL TARTRATE 25 MG TABLET PO SCH ×2 (10:34→20:25)
[2020-07-04] MEDS: POTASSIUM CHLORIDE 20 MEQ TABLET PO SCH (10:34)
[2020-07-04] MEDS: FERROUS SULFATE 300 MG/5 ML UDCUP PO SCH ×2 (10:34→20:31)
[2020-07-04] MEDS: MAGNESIUM CHLORIDE 64 MG TABLET PO SCH (10:34)
[2020-07-04] MEDS: ACYCLOVIR 800 MG TABLET PO SCH ×2 (10:34→21:51)
[2020-07-04] MEDS: LATANOPROST 0.005% OPH SOLN 2.5 ML BOTTLE BOTH EYES SCH (10:35)
[2020-07-04] MEDS: CARBOXYMETHYLCELLULOSE 1% OPH SOLN BOTH EYES PRN (10:35)
[2020-07-04 10:52] LABS: Calcium 8.5 MG/DL (8.5-10.1); Osmolality,Calculated 265.2 MOS/KG (273-304); Potassium 3.6 MMOL/L (3.5-5.1)
[2020-07-04] MEDS ORDERED: PHENOL 1.4% THROAT SPRAY 177 ML BOTTLE PO PRN (14:33)
[2020-07-04 15:16] LABS: Basophils % 0.5 % (0.0-0.8); Eosinophils # 0.2 10*3/uL (0.0-0.87); Eosinophils % 3.2 % (0.00-10.9); Hematocrit 28.4 VOL% (35.7-47.0); Hemoglobin 9.2 GM/DL (12.0-16.0); Immature Granulocytes % 0.7 %; Immature Granulocytes Absolute 0.04 #; Lymphocytes # 1.6 10*3/uL (1.4-4.0); Lymphocytes % 26.1 % (21.3-54.2); Mean Corpuscular HGB Conc 32.4 GM/DL (32-36); Mean Corpuscular Volume 82.3 FL (87-102); Mean Platelet Volume 11.3 FL (9.6-12.0); Monocytes % 10.6 % (1.7-12.7); Neutrophils % 58.9 % (38.7-73.9); Platelet Count 196 T/CUMM (130-400); Red Blood Count 3.45 MC/CUMM (3.8-5.5); Red Cell Distribution Width 20.7 % (9.3-17.3); White Blood Count 5.9 T/CUMM (4-12)
[2020-07-04] MEDS: MELATONIN 3 MG TABLET PO PRN (20:21)
[2020-07-04] MEDS: traZODone 50 MG TABLET PO SCH (20:31)
[2020-07-04] MEDS: LEVOFLOXACIN INJ 250 MG/50 ML PREMIX IV SCH (20:37)
[2020-07-04] MEDS: FLUCONAZOLE INJ 200 MG/100 ML PREMIX IV SCH (21:43)
[2020-07-05] MEDS: DEXTROSE 5% NACL 0.45% 1,000 ML IV SCH ×2 (02:52→12:52)
[2020-07-05 05:58] LABS: Calcium 8.4 MG/DL (8.5-10.1); Osmolality,Calculated 265.2 MOS/KG (273-304); Potassium 3.6 MMOL/L (3.5-5.1)
[2020-07-05] MEDS: METOPROLOL TARTRATE 25 MG TABLET PO SCH ×2 (08:24→22:14)
[2020-07-05] MEDS: NYSTATIN 500,000 UNIT/5 ML UDCUP SWISH/SWAL SCH ×4 (08:24→22:15)
[2020-07-05] MEDS: PANTOPRAZOLE 40 MG VIAL IV SCH ×2 (08:25→21:12)
[2020-07-05] MEDS: BETAMETHASONE VALERATE TOP SCH ×2 (08:25→22:15)
[2020-07-05] MEDS: FERROUS SULFATE 300 MG/5 ML UDCUP PO SCH ×2 (08:26→21:07)
[2020-07-05] MEDS: LATANOPROST 0.005% OPH SOLN 2.5 ML BOTTLE BOTH EYES SCH (08:26)
[2020-07-05] MEDS: MAGNESIUM CHLORIDE 64 MG TABLET PO SCH (08:29)
[2020-07-05] MEDS: ACYCLOVIR 800 MG TABLET PO SCH ×2 (08:29→22:15)
[2020-07-05] MEDS: POTASSIUM CHLORIDE 20 MEQ TABLET PO SCH (08:30)
[2020-07-05] MEDS: DOCUSATE SODIUM 100 MG CAPSULE PO SCH ×2 (08:30→22:14)
[2020-07-05] MEDS: POLYETHYLENE GLYCOL POWDER 17 GM PACK PO SCH ×3 (08:30→22:15)
[2020-07-05] MEDS: FLUCONAZOLE INJ 200 MG/100 ML PREMIX IV SCH (21:04)
[2020-07-05] MEDS: MELATONIN 3 MG TABLET PO PRN (21:08)
[2020-07-05] MEDS: traZODone 50 MG TABLET PO SCH (21:08)
[2020-07-05] MEDS: LEVOFLOXACIN INJ 250 MG/50 ML PREMIX IV SCH (22:32)
[2020-07-06] MEDS: DEXTROSE 5% NACL 0.45% 1,000 ML IV SCH ×2 (00:25→14:23)
[2020-07-06 05:05] LABS: Calcium 8.3 MG/DL (8.5-10.1); Osmolality,Calculated 258.7 MOS/KG (273-304); Potassium 4.5 MMOL/L (3.5-5.1)
[2020-07-06] MEDS: PANTOPRAZOLE 40 MG VIAL IV SCH ×2 (08:19→21:23)
[2020-07-06] MEDS: POTASSIUM CHLORIDE 20 MEQ TABLET PO SCH (08:20)
[2020-07-06] MEDS: FERROUS SULFATE 300 MG/5 ML UDCUP PO SCH ×2 (08:20→21:35)
[2020-07-06] MEDS: METOPROLOL TARTRATE 25 MG TABLET PO SCH ×2 (08:20→21:23)
[2020-07-06] MEDS: DOCUSATE SODIUM 100 MG CAPSULE PO SCH ×2 (08:20→21:23)
[2020-07-06] MEDS: LATANOPROST 0.005% OPH SOLN 2.5 ML BOTTLE BOTH EYES SCH (08:20)
[2020-07-06] MEDS: MAGNESIUM CHLORIDE 64 MG TABLET PO SCH (08:21)
[2020-07-06] MEDS: POLYETHYLENE GLYCOL POWDER 17 GM PACK PO SCH ×3 (08:21→21:23)
[2020-07-06] MEDS: BETAMETHASONE VALERATE TOP SCH ×2 (08:21→21:35)
[2020-07-06] MEDS: NYSTATIN 500,000 UNIT/5 ML UDCUP SWISH/SWAL SCH ×4 (08:21→21:35)
[2020-07-06] MEDS: ACYCLOVIR INJ 750 MG in SODIUM CHLORIDE 0.9% 250 ML IV SCH (09:02)
[2020-07-06] MEDS: traZODone 50 MG TABLET PO SCH (21:23)
[2020-07-06] MEDS: MELATONIN 3 MG TABLET PO PRN (21:23)
[2020-07-06] MEDS: traMADol 50 MG TABLET PO PRN (21:24)
[2020-07-06] MEDS: FLUCONAZOLE INJ 200 MG/100 ML PREMIX IV SCH (21:35)
[2020-07-06] MEDS: LEVOFLOXACIN INJ 250 MG/50 ML PREMIX IV SCH (23:00)
[2020-07-07] MEDS: ACYCLOVIR INJ 750 MG in SODIUM CHLORIDE 0.9% 250 ML IV SCH ×3 (00:01→22:57)
[2020-07-07] MEDS: FERROUS SULFATE 300 MG/5 ML UDCUP PO SCH ×2 (10:22→21:15)
[2020-07-07] MEDS: NYSTATIN 500,000 UNIT/5 ML UDCUP SWISH/SWAL SCH ×4 (10:22→21:15)
[2020-07-07] MEDS: POLYETHYLENE GLYCOL POWDER 17 GM PACK PO SCH ×3 (10:23→21:16)
[2020-07-07] MEDS: DOCUSATE SODIUM 100 MG CAPSULE PO SCH ×2 (10:23→21:15)
[2020-07-07] MEDS: METOPROLOL TARTRATE 25 MG TABLET PO SCH ×2 (10:23→21:16)
[2020-07-07] MEDS: POTASSIUM CHLORIDE 20 MEQ TABLET PO SCH (10:23)
[2020-07-07] MEDS: MAGNESIUM CHLORIDE 64 MG TABLET PO SCH (10:23)
[2020-07-07] MEDS: LATANOPROST 0.005% OPH SOLN 2.5 ML BOTTLE BOTH EYES SCH (10:24)
[2020-07-07] MEDS: BETAMETHASONE VALERATE TOP SCH ×2 (10:24→21:21)
[2020-07-07] MEDS: PANTOPRAZOLE 40 MG VIAL IV SCH ×2 (10:24→21:11)
[2020-07-07] MEDS: FLUCONAZOLE INJ 200 MG/100 ML PREMIX IV SCH (21:15)
[2020-07-07] MEDS: MELATONIN 3 MG TABLET PO PRN (21:15)
[2020-07-07] MEDS: traZODone 50 MG TABLET PO SCH (21:15)
[2020-07-07] MEDS: LEVOFLOXACIN INJ 250 MG/50 ML PREMIX IV SCH (22:16)
[2020-07-08] MEDS: DEXTROSE 5% NACL 0.45% 1,000 ML IV SCH ×2 (00:21→02:02)
[2020-07-08 06:49] LABS: Basophils % 0.4 % (0.0-0.8); Eosinophils # 0.2 10*3/uL (0.0-0.87); Eosinophils % 2.7 % (0.00-10.9); Hematocrit 27.4 VOL% (35.7-47.0); Hemoglobin 8.7 GM/DL (12.0-16.0); Immature Granulocytes % 0.4 %; Immature Granulocytes Absolute 0.02 #; Lymphocytes # 1.3 10*3/uL (1.4-4.0); Lymphocytes % 23.8 % (21.3-54.2); Mean Corpuscular HGB Conc 31.8 GM/DL (32-36); Mean Corpuscular Volume 83.3 FL (87-102); Mean Platelet Volume 10.5 FL (9.6-12.0); Monocytes % 11.5 % (1.7-12.7); Neutrophils % 61.2 % (38.7-73.9); Red Blood Count 3.29 MC/CUMM (3.8-5.5); Red Cell Distribution Width 20.7 % (9.3-17.3); White Blood Count 5.5 T/CUMM (4-12)
[2020-07-08 06:52] LABS: Platelet Count 138 T/CUMM (130-400)
[2020-07-08 07:02] LABS: Calcium 8.2 MG/DL (8.5-10.1); Osmolality,Calculated 264.2 MOS/KG (273-304); Potassium 3.4 MMOL/L (3.5-5.1)
[2020-07-08 07:07] LABS: Hypochromasia 1+; Microcytosis 1+
[2020-07-08] MEDS ORDERED: MAGNESIUM SULF RIDER 2 GM/50 ML PREMIX IV PRN (08:35)
[2020-07-08] MEDS ORDERED: MAGNESIUM SULF RIDER 4 GM/100 ML PREMIX IV PRN (08:35)
[2020-07-08] MEDS ORDERED: POTASSIUM CHLORIDE RIDER 10 MEQ/100 ML PREMIX IV PRN (08:36)
[2020-07-08] MEDS: PANTOPRAZOLE 40 MG VIAL IV SCH ×2 (09:53→22:07)
[2020-07-08] MEDS: POTASSIUM CHLORIDE 20 MEQ TABLET PO SCH (09:56)
[2020-07-08] MEDS: MAGNESIUM CHLORIDE 64 MG TABLET PO SCH (09:56)
[2020-07-08] MEDS: POLYETHYLENE GLYCOL POWDER 17 GM PACK PO SCH ×4 (09:56→22:05)
[2020-07-08] MEDS: FERROUS SULFATE 300 MG/5 ML UDCUP PO SCH ×3 (09:56→22:05)
[2020-07-08] MEDS: NYSTATIN 500,000 UNIT/5 ML UDCUP SWISH/SWAL SCH ×5 (09:56→22:05)
[2020-07-08] MEDS: ACYCLOVIR INJ 750 MG in SODIUM CHLORIDE 0.9% 250 ML IV SCH ×2 (09:56→21:37)
[2020-07-08] MEDS: LATANOPROST 0.005% OPH SOLN 2.5 ML BOTTLE BOTH EYES SCH (09:56)
[2020-07-08] MEDS: BETAMETHASONE VALERATE TOP SCH ×2 (10:28→22:07)
[2020-07-08] MEDS: METOPROLOL TARTRATE 25 MG TABLET PO SCH (10:28)
[2020-07-08] MEDS: DOCUSATE SODIUM 100 MG CAPSULE PO SCH ×3 (10:29→22:05)
[2020-07-08] MEDS ORDERED: SODIUM CHLORIDE 0.9% IV ONE (11:00)
[2020-07-08] MEDS ORDERED: MAGNESIUM SULF IV ONE (11:00)
[2020-07-08] MEDS ORDERED: POTASSIUM CHLORIDE IV ONE (11:00)
[2020-07-08] MEDS: SODIUM CHLORIDE 0.9% 1,000 ML IV SCH (12:31)
[2020-07-08] MEDS ORDERED: DEXTROSE 10% 1,000 ML IV PRN (17:57)
[2020-07-08] MEDS ORDERED: GLUCAGON 1 MG VIAL IM PRN (17:57)
[2020-07-08] MEDS ORDERED: DEXTROSE 50% 25 GM/50 ML VIAL IV PRN (17:57)
[2020-07-08] MEDS ORDERED: ENOXAPARIN 40 MG/0.4 ML SYRINGE SUBCUT SCH (18:00)
[2020-07-08] MEDS: MEGESTROL 40 MG TABLET PO SCH ×2 (20:32→22:05)
[2020-07-08] MEDS: traZODone 50 MG TABLET PO SCH ×2 (20:32→22:05)
[2020-07-08] MEDS: FLUCONAZOLE INJ 200 MG/100 ML PREMIX IV SCH (20:33)
[2020-07-08] MEDS: ALBUMIN 25% 25 GM/100 ML VIAL IV SCH (22:55)
[2020-07-09] MEDS: AMINO ACIDS/DEXT/LYTES 4.25-5% 2,000 ML IV SCH ×2 (00:03→21:13)
[2020-07-09] MEDS: SODIUM CHLORIDE 0.9% 1,000 ML IV SCH ×2 (00:10→17:24)
[2020-07-09] MEDS ORDERED: FUROSEMIDE 20 MG/2 ML VIAL IV ONE (00:48)
[2020-07-09 00:59] LABS: Calcium 7.9 MG/DL (8.5-10.1); Osmolality,Calculated 263.4 MOS/KG (273-304); Potassium 4.1 MMOL/L (3.5-5.1)
[2020-07-09 01:02] LABS: Basophils % 0.2 % (0.0-0.8); Eosinophils % 0.8 % (0.00-10.9); Hematocrit 24.8 VOL% (35.7-47.0); Hemoglobin 7.9 GM/DL (12.0-16.0); Immature Granulocytes % 0.8 %; Immature Granulocytes Absolute 0.04 #; Lymphocytes # 0.6 10*3/uL (1.4-4.0); Lymphocytes % 10.8 % (21.3-54.2); Mean Corpuscular HGB Conc 31.9 GM/DL (32-36); Mean Corpuscular Volume 82.9 FL (87-102); Mean Platelet Volume 11.5 FL (9.6-12.0); Monocytes % 9.1 % (1.7-12.7); Neutrophils % 78.3 % (38.7-73.9); Platelet Count 111 T/CUMM (130-400); Red Blood Count 2.99 MC/CUMM (3.8-5.5); Red Cell Distribution Width 20.7 % (9.3-17.3); White Blood Count 5.1 T/CUMM (4-12)
[2020-07-09 01:49] LABS: Band Neutrophils 1 % (0-10); Lymphocytes 7 % (20-55); Platelet Estimate Normal; Segmented Neutrophils 88 % (50-85); Total Cells Counted 100
[2020-07-09 01:50] LABS: Hypochromasia 1+; Microcytosis Slight
[2020-07-09 01:51] LABS: Alanine Aminotransferase 11 U/L (13-56); Albumin 1.6 G/DL (3.4-5.0); Alkaline Phosphatase 98 U/L (45-117); Aspartate Amino Transferase 27 U/L (0-37); Bilirubin,Total < 0.39 MG/DL (0.2-1.0); Blood Urea Nitrogen 9 MG/DL (7-18); Calcium 8.4 MG/DL (8.5-10.1); Carbon Dioxide 21 MMOL/L (21-32); Estimated Glom Filtration Rate 56 ML/MIN; Glucose 86 MG/DL (74-106); Osmolality,Calculated 263.4 MOS/KG (273-304); Potassium 3.9 MMOL/L (3.5-5.1); Sodium 133 MMOL/L (136-145)
[2020-07-09 01:52] LABS: Lactic Acid 1.6 MMOL/L (0.4-2.0)
[2020-07-09] MEDS ORDERED: LACTULOSE 20 GM/30 ML UDCUP PO ONE (02:40)
[2020-07-09 05:50] LABS: Calcium 8.4 MG/DL (8.5-10.1); Osmolality,Calculated 264.4 MOS/KG (273-304); Potassium 3.9 MMOL/L (3.5-5.1); Prealbumin 3.4 MG/DL (20-40)
[2020-07-09] MEDS ORDERED: cefTRIAXone 1,000 MG in SODIUM CHLORIDE 0.9% 100 ML IV SCH (08:00)
[2020-07-09] MEDS ORDERED: SODIUM CHLORIDE 0.9% 1,000 ML IV PRN (08:03)
[2020-07-09] MEDS ORDERED: SODIUM CHLORIDE 0.9% 1,000 ML IV ONE ×4 (08:25→08:36)
[2020-07-09] MEDS ORDERED: NOREPINEPHRINE 4 MG/4 ML VIAL IV ONE ×2 (08:32→08:35)
[2020-07-09] MEDS: NOREPINEPHRINE 8 MG in SODIUM CHLORIDE 0.9% 242 ML IV PRN ×4 (08:41→21:15)
[2020-07-09] MEDS ORDERED: METOPROLOL TARTRATE 25 MG TABLET PO SCH (09:00)
[2020-07-09 09:53] LABS: ABG Base Excess -7.3 MMOL/L (-2.5-2.5); ABG HCO3 20.2 MMOL/L (20-26); ABG Oxygen Saturation 94.9 % (95-100); ABG PCO2 50.1 MM HG (35-48); ABG PH 7.224 (7.35-7.45); ABG PO2 83.9 MM HG (80-95); ABG TCO2 21.8 MMOL/L (23-27); Allen Test Positive
[2020-07-09 10:05] LABS: INR 1.3; PT Patient Result 14.2 SECS (10.5-12.0)
[2020-07-09 10:16] LABS: Albumin 1.6 G/DL (3.4-5.0); Bilirubin,Total 0.4 MG/DL (0.2-1.0); Calcium 8.5 MG/DL (8.5-10.1); Osmolality,Calculated 263.4 MOS/KG (273-304); Potassium 4.2 MMOL/L (3.5-5.1); Total Protein 5.5 G/DL (6.4-8.2)
[2020-07-09] MEDS: PIPERACILLIN/TAZOBACTAM 3,375 MG in SODIUM CHLORIDE 0.9% 100 ML IV SCH ×2 (11:05→17:01)
[2020-07-09] MEDS: ACYCLOVIR INJ 750 MG in SODIUM CHLORIDE 0.9% 250 ML IV SCH ×2 (11:09→22:00)
[2020-07-09 11:48] LABS: Bacteria,Urine Occasional /HPF (Few); Bilirubin,Urine Negative (Negative); Blood, Urine Small mg/dL (Negative); Glucose,Urine (UA) Negative (Negative); Hyaline Casts,Urine 4 /LPF (0-3); Ketones,Urine Negative (Negative); Mucus,Urine Occasional /LPF (Occasional); Nitrite,Urine Negative (Negative); Protein,Urine 30 MG/DL; RBC,Urine 3 /HPF (0-4); Squamous Epithelial Cell,Urine Occasional /HPF (0-10); Urine Appearance CLEAR (Clear); Urine Color Yellow (Yellow); Urine Specific Gravity 1.011 (1.001-1.035); Urine Urobilinogen < 2.0 EU/DL (0.2-1.0)
[2020-07-09] MEDS: DOCUSATE SODIUM 100 MG CAPSULE PO SCH (13:00)
[2020-07-09] MEDS: ALBUMIN 25% 25 GM/100 ML VIAL IV SCH ×2 (13:00→16:26)
[2020-07-09] MEDS: NYSTATIN 500,000 UNIT/5 ML UDCUP SWISH/SWAL SCH ×4 (13:01→21:30)
[2020-07-09] MEDS: POTASSIUM CHLORIDE 20 MEQ TABLET PO SCH (13:01)
[2020-07-09] MEDS: FERROUS SULFATE 300 MG/5 ML UDCUP PO SCH ×2 (13:01→21:57)
[2020-07-09] MEDS: MEGESTROL 40 MG TABLET PO SCH ×2 (13:01→21:57)
[2020-07-09] MEDS: POLYETHYLENE GLYCOL POWDER 17 GM PACK PO SCH ×3 (13:02→21:58)
[2020-07-09] MEDS: BETAMETHASONE VALERATE TOP SCH (13:03)
[2020-07-09] MEDS: PANTOPRAZOLE 40 MG VIAL IV SCH ×2 (13:03→21:58)
[2020-07-09] MEDS: LATANOPROST 0.005% OPH SOLN 2.5 ML BOTTLE BOTH EYES SCH (13:03)
[2020-07-09] MEDS: MAGNESIUM CHLORIDE 64 MG TABLET PO SCH (13:03)
[2020-07-09 13:58] VITALS: BP 111/81
[2020-07-09 14:19] LABS: ABG Base Excess -8.6 MMOL/L (-2.5-2.5); ABG HCO3 17.6 MMOL/L (20-26); ABG Oxygen Saturation 98.4 % (95-100); ABG PCO2 53.3 MM HG (35-48); ABG TCO2 18.7 MMOL/L (23-27); Allen Test Positive
[2020-07-09 14:22] LABS: ABG PH 7.186 (7.35-7.45)
[2020-07-09] MEDS ORDERED: SODIUM BICARBONATE 50 MEQ/50 ML VIAL IV ONE (14:41)
[2020-07-09] MEDS ORDERED: ETOMIDATE 20 MG/10 ML VIAL IV ONE ×3 (14:49→15:07)
[2020-07-09] MEDS ORDERED: SUCCINYLCHOLINE 200 MG/10 ML VIAL ONE (14:51)
[2020-07-09] MEDS ORDERED: SUCCINYLCHOLINE 200 MG/10 ML VIAL IV ONE (15:10)
[2020-07-09] MEDS: SODIUM BICARB INJ 100 MEQ in DEXTROSE 5% 1,000 ML IV SCH (16:24)
[2020-07-09 18:18] LABS: ABG Base Excess -7.3 MMOL/L (-2.5-2.5); ABG HCO3 15.3 MMOL/L (20-26); ABG Oxygen Saturation 99.6 % (95-100); ABG PCO2 23.8 MM HG (35-48); ABG PH 7.426 (7.35-7.45)
[2020-07-09 18:19] LABS: ABG PO2 551.1 MM HG (80-95)
[2020-07-09 19:09] LABS: Hemoglobin 11.5 GM/DL (12.0-16.0)
[2020-07-09] MEDS: DESITIN 4OZ/NYSTATIN 15 GRAM MIXTURE PASTE TOP SCH (21:30)
[2020-07-09] MEDS: DOCUSATE SODIUM 100 MG/10 ML UDCUP PO SCH (21:57)
[2020-07-09] MEDS: FLUCONAZOLE INJ 200 MG/100 ML PREMIX IV SCH (21:59)
[2020-07-09] MEDS: traZODone 50 MG TABLET PO SCH (22:00)
[2020-07-10] MEDS: BETAMETHASONE VALERATE TOP SCH ×3 (00:04→21:10)
[2020-07-10] MEDS: AMINO ACIDS/DEXT/LYTES 4.25-5% 2,000 ML IV SCH (00:06)
[2020-07-10] MEDS: ALBUMIN 25% 25 GM/100 ML VIAL IV SCH ×3 (00:41→15:19)
[2020-07-10 00:44] LABS: Basophils % 0.3 % (0.0-0.8); Eosinophils # 0.1 10*3/uL (0.0-0.87); Eosinophils % 0.9 % (0.00-10.9); Immature Granulocytes % 0.8 %; Immature Granulocytes Absolute 0.08 #; Lymphocytes % 9.9 % (21.3-54.2); Mean Corpuscular HGB Conc 33.1 GM/DL (32-36); Mean Corpuscular Volume 82.9 FL (87-102); Mean Platelet Volume 10.9 FL (9.6-12.0); Monocytes % 11.2 % (1.7-12.7); Neutrophils % 76.9 % (38.7-73.9); Red Cell Distribution Width 20.6 % (9.3-17.3)
[2020-07-10] MEDS: NOREPINEPHRINE 8 MG in SODIUM CHLORIDE 0.9% 242 ML IV PRN ×6 (00:48→17:19)
[2020-07-10 00:54] LABS: Hemoglobin 10.6 GM/DL (12.0-16.0); Platelet Count 137 T/CUMM (130-400); Red Blood Count 3.86 MC/CUMM (3.8-5.5); White Blood Count 10.3 T/CUMM (4-12)
[2020-07-10 01:09] LABS: Albumin 1.8 G/DL (3.4-5.0); Bilirubin,Total 0.5 MG/DL (0.2-1.0); Calcium 7.9 MG/DL (8.5-10.1); Osmolality,Calculated 271.8 MOS/KG (273-304); Potassium 3.5 MMOL/L (3.5-5.1); Total Protein 4.9 G/DL (6.4-8.2)
[2020-07-10 01:51] LABS: Burr Cells 2+; Hypochromasia Slight; Platelet Estimate Adequate
[2020-07-10 01:56] LABS: Ovalocytes 1+; Target Cells Few
[2020-07-10] MEDS: PIPERACILLIN/TAZOBACTAM 3,375 MG in SODIUM CHLORIDE 0.9% 100 ML IV SCH ×3 (02:00→17:12)
[2020-07-10 03:12] LABS: ABG Base Excess -6.5 MMOL/L (-2.5-2.5); ABG Oxygen Saturation 94.9 % (95-100); ABG PCO2 32.2 MM HG (35-48); ABG PH 7.365 (7.35-7.45); ABG PO2 76.2 MM HG (80-95)
[2020-07-10] MEDS: DOCUSATE SODIUM 100 MG CAPSULE PO SCH (03:16)
[2020-07-10] MEDS ORDERED: NOREPINEPHRINE 4 MG/4 ML VIAL IV ONE ×2 (08:33)
[2020-07-10] MEDS: SODIUM BICARB INJ 100 MEQ in DEXTROSE 5% 1,000 ML IV SCH ×2 (09:06→21:25)
[2020-07-10] MEDS: NYSTATIN 500,000 UNIT/5 ML UDCUP SWISH/SWAL SCH ×4 (10:46→21:05)
[2020-07-10] MEDS: MEGESTROL 40 MG TABLET PO SCH ×2 (10:46→21:05)
[2020-07-10] MEDS: DOCUSATE SODIUM 100 MG/10 ML UDCUP PO SCH ×2 (10:46→21:04)
[2020-07-10] MEDS: FERROUS SULFATE 300 MG/5 ML UDCUP PO SCH ×2 (10:46→21:04)
[2020-07-10] MEDS: POLYETHYLENE GLYCOL POWDER 17 GM PACK PO SCH ×3 (10:46→21:06)
[2020-07-10] MEDS: POTASSIUM CHLORIDE 20 MEQ TABLET PO SCH (10:46)
[2020-07-10] MEDS: DESITIN 4OZ/NYSTATIN 15 GRAM MIXTURE PASTE TOP SCH ×2 (10:47→21:10)
[2020-07-10] MEDS: MAGNESIUM CHLORIDE 64 MG TABLET PO SCH (10:47)
[2020-07-10] MEDS: PANTOPRAZOLE 40 MG VIAL IV SCH ×2 (10:47→21:05)
[2020-07-10] MEDS: LATANOPROST 0.005% OPH SOLN 2.5 ML BOTTLE BOTH EYES SCH (10:47)
[2020-07-10 11:06] LABS: Acetohexamide Urine NEGATIVE; Chlorpropamide Urine NEGATIVE; Glimepiride Urine NEGATIVE; Glipizide Urine NEGATIVE; Glyburide Urine NEGATIVE; Nateglinide Urine NEGATIVE; Repaglinide Urine NEGATIVE; Tolazamide Urine NEGATIVE; Tolbutamide Urine NEGATIVE
[2020-07-10] MEDS: ACYCLOVIR INJ 750 MG in SODIUM CHLORIDE 0.9% 250 ML IV SCH ×2 (11:23→21:06)
[2020-07-10] MEDS: MULTIVITAMIN LIQUID (CENTRUM) 60 ML BOTTLE PO SCH (11:24)
[2020-07-10 16:41] LABS: Amylase,Body Fluid 18 U/L; Glucose,Pleural Fluid 98 MG/DL; LDH,Body Fluid 71 U/L; Total Protein,Body Fluid < 1.0 G/DL; Triglycerides,Body Fluid 76 MG/DL
[2020-07-10 17:25] LABS: RBC,Pleural Fluid 4762 T/CUMM
[2020-07-10 18:32] LABS: Lymphocytes,Pleural Fluid 29 %; Monocytes,Pleural Fluid 7 %; Neutrophils,Pleural Fluid 64 %
[2020-07-10] MEDS: DEXTROSE 50% 25 GM/50 ML VIAL IV PRN (19:08)
[2020-07-10] MEDS: NOREPINEPHRINE 16 MG in SODIUM CHLORIDE 0.9% 234 ML IV PRN (20:16)
[2020-07-10] MEDS: traZODone 50 MG TABLET PO SCH (21:10)
[2020-07-11] MEDS: ALBUMIN 25% 25 GM/100 ML VIAL IV SCH ×3 (00:18→15:29)
[2020-07-11] MEDS ORDERED: NOREPINEPHRINE 4 MG/4 ML VIAL IV ONE ×2 (01:15→18:56)
[2020-07-11] MEDS: PIPERACILLIN/TAZOBACTAM 3,375 MG in SODIUM CHLORIDE 0.9% 100 ML IV SCH ×2 (01:20→09:15)
[2020-07-11] MEDS: NOREPINEPHRINE 16 MG in SODIUM CHLORIDE 0.9% 234 ML IV PRN ×6 (01:24→22:03)
[2020-07-11 03:08] LABS: ABG HCO3 19.5 MMOL/L (20-26); ABG Oxygen Saturation 99.2 % (95-100); ABG PCO2 34.6 MM HG (35-48); ABG PH 7.347 (7.35-7.45); ABG TCO2 17.5 MMOL/L (23-27); Allen Test Positive; Pt O2 Delivery Device Ventilator
[2020-07-11 04:33] LABS: Basophils # 0.1 10*3/uL (0.0-0.2); Basophils % 0.5 % (0.0-0.8); Eosinophils # 0.2 10*3/uL (0.0-0.87); Eosinophils % 1.3 % (0.00-10.9); Hematocrit 28.2 VOL% (35.7-47.0); Hemoglobin 9.3 GM/DL (12.0-16.0); Immature Granulocytes % 1.5 %; Immature Granulocytes Absolute 0.18 #; Lymphocytes # 1.7 10*3/uL (1.4-4.0); Lymphocytes % 14.3 % (21.3-54.2); Mean Corpuscular Volume 82.5 FL (87-102); Mean Platelet Volume 11.7 FL (9.6-12.0); Monocytes % 12.5 % (1.7-12.7); Neutrophils % 69.9 % (38.7-73.9); Platelet Count 95 T/CUMM (130-400); Red Blood Count 3.42 MC/CUMM (3.8-5.5); Red Cell Distribution Width 20.8 % (9.3-17.3)
[2020-07-11 04:52] LABS: Alanine Aminotransferase < 9 U/L (13-56); Albumin 2.7 G/DL (3.4-5.0); Alkaline Phosphatase 77 U/L (45-117); Aspartate Amino Transferase 19 U/L (0-37); Blood Urea Nitrogen 15 MG/DL (7-18); Calcium 8.3 MG/DL (8.5-10.1); Carbon Dioxide 21 MMOL/L (21-32); Estimated Glom Filtration Rate 44 ML/MIN; Glucose 102 MG/DL (74-106); Osmolality,Calculated 268.2 MOS/KG (273-304); Potassium 3.4 MMOL/L (3.5-5.1); Sodium 134 MMOL/L (136-145)
[2020-07-11 05:27] LABS: Band Neutrophils 3 % (0-10); Eosinophils 4 % (0-10); Hypochromasia 1+; Lymphocytes 14 % (20-55); Microcytosis 1+; Segmented Neutrophils 70 % (50-85); Total Cells Counted 100
[2020-07-11 05:28] LABS: Target Cells Slight
[2020-07-11 05:29] LABS: Platelet Estimate Decreased
[2020-07-11] MEDS ORDERED: POTASSIUM CHLORIDE RIDER 10 MEQ/100 ML PREMIX IV PRN (06:15)
[2020-07-11] MEDS: POTASSIUM CHLORIDE RIDER 20 MEQ/100 ML PREMIX IV PRN (06:48)
[2020-07-11] MEDS: DESITIN 4OZ/NYSTATIN 15 GRAM MIXTURE PASTE TOP SCH ×2 (09:15→21:14)
[2020-07-11] MEDS: POLYETHYLENE GLYCOL POWDER 17 GM PACK PO SCH ×3 (09:15→21:11)
[2020-07-11] MEDS: MEGESTROL 40 MG TABLET PO SCH ×2 (09:15→21:13)
[2020-07-11] MEDS: NYSTATIN 500,000 UNIT/5 ML UDCUP SWISH/SWAL SCH ×4 (09:15→21:11)
[2020-07-11] MEDS: MAGNESIUM CHLORIDE 64 MG TABLET PO SCH (09:15)
[2020-07-11] MEDS: LATANOPROST 0.005% OPH SOLN 2.5 ML BOTTLE BOTH EYES SCH (09:15)
[2020-07-11] MEDS: MULTIVITAMIN LIQUID (CENTRUM) 60 ML BOTTLE PO SCH (09:15)
[2020-07-11] MEDS: PANTOPRAZOLE 40 MG VIAL IV SCH ×2 (09:15→21:10)
[2020-07-11] MEDS: POTASSIUM CHLORIDE 20 MEQ TABLET PO SCH (09:15)
[2020-07-11] MEDS: ACYCLOVIR INJ 750 MG in SODIUM CHLORIDE 0.9% 250 ML IV SCH ×2 (09:20→22:15)
[2020-07-11] MEDS ORDERED: METOPROLOL TARTRATE 5 MG/5 ML VIAL IV ONE ×2 (09:46→09:49)
[2020-07-11] MEDS: DOCUSATE SODIUM 100 MG/10 ML UDCUP PO SCH ×2 (09:50→21:10)
[2020-07-11] MEDS: FERROUS SULFATE 300 MG/5 ML UDCUP PO SCH ×2 (09:50→21:10)
[2020-07-11] MEDS ORDERED: ATROPINE 1 MG/10 ML SYRINGE ONE (10:15)
[2020-07-11] MEDS ORDERED: FUROSEMIDE 40 MG/4 ML VIAL ONE (10:18)
[2020-07-11] MEDS ORDERED: FUROSEMIDE 40 MG/4 ML VIAL IV ONE (10:18)
[2020-07-11] MEDS: BETAMETHASONE VALERATE TOP SCH ×2 (10:55→21:08)
[2020-07-11] MEDS: SODIUM BICARB INJ 100 MEQ in DEXTROSE 5% 1,000 ML IV SCH (11:04)
[2020-07-11 11:27] LABS: ABG Base Excess -7.8 MMOL/L (-2.5-2.5); ABG Oxygen Saturation 97.3 % (95-100); ABG PCO2 33.7 MM HG (35-48); ABG PH 7.322 (7.35-7.45); ABG PO2 90.8 MM HG (80-95); ABG TCO2 16.1 MMOL/L (23-27)
[2020-07-11 12:27] LABS: Calcium 8.3 MG/DL (8.5-10.1); Osmolality,Calculated 267.2 MOS/KG (273-304); Potassium 3.8 MMOL/L (3.5-5.1)
[2020-07-11] MEDS: MEROPENEM 500 MG in SODIUM CHLORIDE 0.9% 100 ML IV SCH ×2 (12:27→20:56)
[2020-07-11] MEDS ORDERED: SODIUM CHLORIDE 0.9% 500 ML IV ONE (15:06)
[2020-07-11] MEDS: FUROSEMIDE 40 MG/4 ML VIAL IV SCH (15:39)
[2020-07-11 16:59] LABS: Calcium 8.8 MG/DL (8.5-10.1); Osmolality,Calculated 264.4 MOS/KG (273-304); Potassium 3.9 MMOL/L (3.5-5.1)
[2020-07-11] MEDS: DEXTROSE 50% 25 GM/50 ML VIAL IV PRN (17:19)
[2020-07-11] MEDS: traZODone 50 MG TABLET PO SCH (21:08)
[2020-07-12] MEDS: DEXTROSE 50% 25 GM/50 ML VIAL IV PRN ×3 (00:58→05:47)
[2020-07-12] MEDS: ALBUMIN 25% 25 GM/100 ML VIAL IV SCH ×3 (00:59→16:20)
[2020-07-12] MEDS: NOREPINEPHRINE 16 MG in SODIUM CHLORIDE 0.9% 234 ML IV PRN ×7 (01:12→21:06)
[2020-07-12] MEDS: SODIUM BICARB INJ 100 MEQ in DEXTROSE 5% 1,000 ML IV SCH (02:58)
[2020-07-12 03:25] LABS: Basophils # 0.1 10*3/uL (0.0-0.2); Basophils % 0.5 % (0.0-0.8); Eosinophils # 0.1 10*3/uL (0.0-0.87); Eosinophils % 0.7 % (0.00-10.9); Hematocrit 28.9 VOL% (35.7-47.0); Hemoglobin 9.6 GM/DL (12.0-16.0); Immature Granulocytes % 1.7 %; Immature Granulocytes Absolute 0.18 #; Lymphocytes # 1.6 10*3/uL (1.4-4.0); Lymphocytes % 15.3 % (21.3-54.2); Mean Corpuscular HGB Conc 33.2 GM/DL (32-36); Mean Corpuscular Volume 82.8 FL (87-102); Mean Platelet Volume 10.7 FL (9.6-12.0); Monocytes % 15.8 % (1.7-12.7); NRBC # 0.02 10*3/uL; Platelet Count 79 T/CUMM (130-400); Red Blood Count 3.49 MC/CUMM (3.8-5.5); Red Cell Distribution Width 21.2 % (9.3-17.3); White Blood Count 10.6 T/CUMM (4-12)
[2020-07-12 03:47] LABS: Alanine Aminotransferase < 9 U/L (13-56); Albumin 3.5 G/DL (3.4-5.0); Alkaline Phosphatase 121 U/L (45-117); Aspartate Amino Transferase 35 U/L (0-37); Blood Urea Nitrogen 14 MG/DL (7-18); Calcium 8.6 MG/DL (8.5-10.1); Carbon Dioxide 16 MMOL/L (21-32); Estimated Glom Filtration Rate 38 ML/MIN; Osmolality,Calculated 265.2 MOS/KG (273-304); Sodium 134 MMOL/L (136-145); Total Protein 5.3 G/DL (6.4-8.2)
[2020-07-12 03:49] LABS: Glucose 44 MG/DL (74-106)
[2020-07-12] MEDS: MEROPENEM 500 MG in SODIUM CHLORIDE 0.9% 100 ML IV SCH ×3 (04:08→20:33)
[2020-07-12 04:44] LABS: Band Neutrophils 1 % (0-10); Giant Platelets Few; Hypochromasia 2+; Lymphocytes 16 % (20-55); Metamyelocytes 2 %; Platelet Estimate Decreased; Segmented Neutrophils 65 % (50-85); Total Cells Counted 100
[2020-07-12 07:00] LABS: ABG Base Excess -14.3 MMOL/L (-2.5-2.5); ABG HCO3 11.1 MMOL/L (20-26); ABG Oxygen Saturation 97.5 % (95-100); ABG PCO2 25.1 MM HG (35-48); ABG PH 7.264 (7.35-7.45); ABG PO2 115.7 MM HG (80-95); ABG TCO2 11.9 MMOL/L (23-27)
[2020-07-12] MEDS ORDERED: SODIUM BICARBONATE 50 MEQ/50 ML VIAL IV ONE ×2 (08:42→08:48)
[2020-07-12] MEDS ORDERED: NOREPINEPHRINE 4 MG/4 ML VIAL IV ONE (09:16)
[2020-07-12] MEDS: FUROSEMIDE 40 MG/4 ML VIAL IV SCH ×2 (09:47→16:21)
[2020-07-12] MEDS: MULTIVITAMIN LIQUID (CENTRUM) 60 ML BOTTLE PO SCH (09:47)
[2020-07-12] MEDS: FERROUS SULFATE 300 MG/5 ML UDCUP PO SCH ×2 (09:47→20:33)
[2020-07-12] MEDS: MEGESTROL 40 MG TABLET PO SCH (09:47)
[2020-07-12] MEDS: POTASSIUM CHLORIDE 20 MEQ TABLET PO SCH (09:47)
[2020-07-12] MEDS: DOCUSATE SODIUM 100 MG/10 ML UDCUP PO SCH ×2 (09:47→20:33)
[2020-07-12] MEDS: LATANOPROST 0.005% OPH SOLN 2.5 ML BOTTLE BOTH EYES SCH (09:48)
[2020-07-12] MEDS: DESITIN 4OZ/NYSTATIN 15 GRAM MIXTURE PASTE TOP SCH ×2 (09:48→20:34)
[2020-07-12] MEDS: PANTOPRAZOLE 40 MG VIAL IV SCH ×2 (09:48→20:33)
[2020-07-12] MEDS: POLYETHYLENE GLYCOL POWDER 17 GM PACK PO SCH ×3 (09:48→20:34)
[2020-07-12] MEDS: ACYCLOVIR INJ 750 MG in SODIUM CHLORIDE 0.9% 250 ML IV SCH ×2 (09:48→21:10)
[2020-07-12] MEDS: MAGNESIUM CHLORIDE 64 MG TABLET PO SCH (09:48)
[2020-07-12] MEDS: BETAMETHASONE VALERATE TOP SCH ×2 (09:48→22:13)
[2020-07-12] MEDS: NYSTATIN 500,000 UNIT/5 ML UDCUP SWISH/SWAL SCH ×4 (09:48→20:33)
[2020-07-12] MEDS: SODIUM BICARB INJ 150 MEQ in DEXTROSE 5% 850 ML IV SCH ×2 (09:49→20:15)
[2020-07-12] MEDS: METOPROLOL TARTRATE 5 MG/5 ML VIAL IV PRN (13:36)
[2020-07-12] MEDS: traZODone 50 MG TABLET PO SCH (22:13)
[2020-07-13] MEDS: NOREPINEPHRINE 16 MG in SODIUM CHLORIDE 0.9% 234 ML IV PRN ×9 (00:13→23:01)
[2020-07-13] MEDS: DEXTROSE 50% 25 GM/50 ML VIAL IV PRN ×3 (00:41→11:17)
[2020-07-13] MEDS: ALBUMIN 25% 25 GM/100 ML VIAL IV SCH ×3 (01:02→17:08)
[2020-07-13] MEDS: METOPROLOL TARTRATE 5 MG/5 ML VIAL IV PRN ×2 (02:26→21:52)
[2020-07-13] MEDS: MEROPENEM 500 MG in SODIUM CHLORIDE 0.9% 100 ML IV SCH ×3 (03:12→20:20)
[2020-07-13 03:51] LABS: ABG Base Excess -15.4 MMOL/L (-2.5-2.5); ABG HCO3 12.6 MMOL/L (20-26); ABG Oxygen Saturation 98.8 % (95-100); ABG PCO2 25.8 MM HG (35-48); ABG PH 7.237 (7.35-7.45); ABG TCO2 10.4 MMOL/L (23-27)
[2020-07-13 03:54] LABS: Basophils % 0.3 % (0.0-0.8); Eosinophils # 0.1 10*3/uL (0.0-0.87); Hematocrit 25.6 VOL% (35.7-47.0); Hemoglobin 8.5 GM/DL (12.0-16.0); Immature Granulocytes Absolute 0.13 #; Lymphocytes # 1.2 10*3/uL (1.4-4.0); Lymphocytes % 8.9 % (21.3-54.2); Mean Corpuscular HGB Conc 33.2 GM/DL (32-36); Mean Corpuscular Volume 82.8 FL (87-102); Monocytes % 7.3 % (1.7-12.7); NRBC # 0.03 10*3/uL; Neutrophils % 81.5 % (38.7-73.9); Platelet Count 50 T/CUMM (130-400); Red Blood Count 3.09 MC/CUMM (3.8-5.5); Red Cell Distribution Width 21.2 % (9.3-17.3); White Blood Count 13.6 T/CUMM (4-12)
[2020-07-13 04:11] LABS: Albumin 3.5 G/DL (3.4-5.0); Bilirubin,Total 2.2 MG/DL (0.2-1.0); Calcium 8.1 MG/DL (8.5-10.1); Osmolality,Calculated 274.7 MOS/KG (273-304); Potassium 3.6 MMOL/L (3.5-5.1); Total Protein 5.1 G/DL (6.4-8.2)
[2020-07-13 05:31] LABS: Eosinophils 1 % (0-10); Lymphocytes 10 % (20-55); Platelet Estimate Decreased; Segmented Neutrophils 84 % (50-85); Total Cells Counted 100
[2020-07-13 05:32] LABS: Hypochromasia Slight; Microcytosis 1+; Target Cells Few
[2020-07-13 05:33] LABS: Ovalocytes Slight; Schistocytes Few; Tear Drop Cells Few
[2020-07-13] MEDS: SODIUM BICARB INJ 150 MEQ in DEXTROSE 5% 850 ML IV SCH ×3 (07:30→18:45)
[2020-07-13] MEDS ORDERED: MORPHINE 4 MG/1 ML VIAL IV PRN (09:22)
[2020-07-13] MEDS ORDERED: SODIUM BICARBONATE 50 MEQ/50 ML VIAL IV ONE (09:28)
[2020-07-13] MEDS: MULTIVITAMIN LIQUID (CENTRUM) 60 ML BOTTLE PO SCH (09:31)
[2020-07-13] MEDS: ASPIRIN CHEW 81 MG TABLET PO SCH (09:31)
[2020-07-13] MEDS: NYSTATIN 500,000 UNIT/5 ML UDCUP SWISH/SWAL SCH ×4 (09:31→20:26)
[2020-07-13] MEDS: FERROUS SULFATE 300 MG/5 ML UDCUP PO SCH ×2 (09:31→20:26)
[2020-07-13] MEDS: DESITIN 4OZ/NYSTATIN 15 GRAM MIXTURE PASTE TOP SCH ×2 (09:31→20:27)
[2020-07-13] MEDS: POLYETHYLENE GLYCOL POWDER 17 GM PACK PO SCH ×3 (09:31→20:26)
[2020-07-13] MEDS: DOCUSATE SODIUM 100 MG/10 ML UDCUP PO SCH ×2 (09:31→20:26)
[2020-07-13] MEDS: BETAMETHASONE VALERATE TOP SCH ×2 (09:31→23:06)
[2020-07-13] MEDS: MAGNESIUM CHLORIDE 64 MG TABLET PO SCH (09:31)
[2020-07-13] MEDS: PANTOPRAZOLE 40 MG VIAL IV SCH ×2 (09:31→20:22)
[2020-07-13] MEDS: ACYCLOVIR INJ 750 MG in SODIUM CHLORIDE 0.9% 250 ML IV SCH ×2 (09:32→21:08)
[2020-07-13] MEDS: LATANOPROST 0.005% OPH SOLN 2.5 ML BOTTLE BOTH EYES SCH (09:32)
[2020-07-13] MEDS: FUROSEMIDE 40 MG/4 ML VIAL IV SCH ×2 (10:03→17:08)
[2020-07-13] MEDS: POTASSIUM CHLORIDE 20 MEQ TABLET PO SCH (10:24)
[2020-07-13] MEDS ORDERED: DILTIAZEM 50 MG/10 ML VIAL IV ONE ×2 (12:14→12:18)
[2020-07-13] MEDS: traZODone 50 MG TABLET PO SCH (20:27)
[2020-07-13] MEDS: POTASSIUM CHLORIDE RIDER 20 MEQ/100 ML PREMIX IV PRN (22:20)
[2020-07-14] MEDS: DEXTROSE 50% 25 GM/50 ML VIAL IV PRN ×3 (00:55→11:27)
[2020-07-14] MEDS: ALBUMIN 25% 25 GM/100 ML VIAL IV SCH ×2 (00:55→09:07)
[2020-07-14] MEDS: NOREPINEPHRINE 16 MG in SODIUM CHLORIDE 0.9% 234 ML IV PRN ×5 (01:31→11:27)
[2020-07-14] MEDS: SODIUM BICARB INJ 150 MEQ in DEXTROSE 5% 850 ML IV SCH ×3 (02:30→12:06)
[2020-07-14] MEDS: MEROPENEM 500 MG in SODIUM CHLORIDE 0.9% 100 ML IV SCH ×2 (04:08→12:05)
[2020-07-14 04:10] LABS: ABG Base Excess -8.3 MMOL/L (-2.5-2.5); ABG HCO3 17.6 MMOL/L (20-26); ABG Oxygen Saturation 96.8 % (95-100); ABG PCO2 41.9 MM HG (35-48); ABG TCO2 17.5 MMOL/L (23-27)
[2020-07-14 04:11] LABS: Basophils % 0.3 % (0.0-0.8); Eosinophils # 0.2 10*3/uL (0.0-0.87); Eosinophils % 1.8 % (0.00-10.9); Hematocrit 22.2 VOL% (35.7-47.0); Hemoglobin 7.4 GM/DL (12.0-16.0); Immature Granulocytes % 0.9 %; Immature Granulocytes Absolute 0.11 #; Lymphocytes # 1.2 10*3/uL (1.4-4.0); Lymphocytes % 9.6 % (21.3-54.2); Mean Corpuscular HGB Conc 33.3 GM/DL (32-36); Mean Corpuscular Volume 83.5 FL (87-102); Monocytes % 6.3 % (1.7-12.7); NRBC # 0.06 10*3/uL; Neutrophils % 81.1 % (38.7-73.9); Red Blood Count 2.66 MC/CUMM (3.8-5.5); Red Cell Distribution Width 20.8 % (9.3-17.3); White Blood Count 12.6 T/CUMM (4-12)
[2020-07-14 04:18] LABS: Platelet Count 32 T/CUMM (130-400)
[2020-07-14 04:27] LABS: Albumin 3.5 G/DL (3.4-5.0); Bilirubin,Total 2.6 MG/DL (0.2-1.0); Calcium 8.3 MG/DL (8.5-10.1); Osmolality,Calculated 274.7 MOS/KG (273-304); Potassium 3.6 MMOL/L (3.5-5.1); Total Protein 4.8 G/DL (6.4-8.2)
[2020-07-14 04:29] LABS: Eosinophils 2 % (0-10); Hypochromasia 1+; Lymphocytes 8 % (20-55); Microcytosis 1+; Nucleated Red Blood Cells 1 (0-5); Platelet Estimate Decreased; Segmented Neutrophils 85 % (50-85); Total Cells Counted 100
[2020-07-14] MEDS: METOPROLOL TARTRATE 5 MG/5 ML VIAL IV PRN ×2 (05:14→12:06)
[2020-07-14] MEDS: POTASSIUM CHLORIDE RIDER 20 MEQ/100 ML PREMIX IV PRN (05:23)
[2020-07-14] MEDS: MULTIVITAMIN LIQUID (CENTRUM) 60 ML BOTTLE PO SCH (09:07)
[2020-07-14] MEDS: ASPIRIN CHEW 81 MG TABLET PO SCH (09:07)
[2020-07-14] MEDS: FUROSEMIDE 40 MG/4 ML VIAL IV SCH (09:07)
[2020-07-14] MEDS: NYSTATIN 500,000 UNIT/5 ML UDCUP SWISH/SWAL SCH ×2 (09:08→16:20)
[2020-07-14] MEDS: FERROUS SULFATE 300 MG/5 ML UDCUP PO SCH (09:08)
[2020-07-14] MEDS: BETAMETHASONE VALERATE TOP SCH (09:08)
[2020-07-14] MEDS: LATANOPROST 0.005% OPH SOLN 2.5 ML BOTTLE BOTH EYES SCH (09:08)
[2020-07-14] MEDS: DESITIN 4OZ/NYSTATIN 15 GRAM MIXTURE PASTE TOP SCH (09:08)
[2020-07-14] MEDS: POLYETHYLENE GLYCOL POWDER 17 GM PACK PO SCH ×2 (09:08→16:20)
[2020-07-14] MEDS: POTASSIUM CHLORIDE 20 MEQ TABLET PO SCH (09:08)
[2020-07-14] MEDS: DOCUSATE SODIUM 100 MG/10 ML UDCUP PO SCH (09:08)
[2020-07-14] MEDS: PANTOPRAZOLE 40 MG VIAL IV SCH (09:08)
[2020-07-14] MEDS: MAGNESIUM CHLORIDE 64 MG TABLET PO SCH (09:08)
[2020-07-14] MEDS: ACYCLOVIR INJ 750 MG in SODIUM CHLORIDE 0.9% 250 ML IV SCH (09:09)
[2020-07-14] MEDS ORDERED: DIGOXIN 0.5 MG/2 ML AMP IV ONE ×3 (09:30→10:30)
[2020-07-14] MEDS ORDERED: HYDROCORTISONE 100 MG VIAL IV SCH (09:30)
[2020-07-14] MEDS ORDERED: MORPHINE 4 MG/1 ML VIAL IV PRN ×2 (10:26→14:33)
[2020-07-14] MEDS ORDERED: LORazepam 2 MG/1 ML VIAL IV PRN ×2 (10:26→14:33)
[2020-07-14] MEDS ORDERED: LORazepam 2 MG/1 ML VIAL ONE (10:33)
== END 2020-07-14 14:42 | disposition expired | DRG 865 ==
LOC: EDUNIT# → N.ED 09:46 → N.EDINP 12:37 → SUATTDRO 12:37 → N.EDINP 14:26 → N.5E 14:32 → N.CC 07-09 08:05
PROVIDERS: ADMIT Internal Medicine; ATTEND Internal Medicine